=== PATIENT | female | born 1945 | race Caucasian/White ===

== ENCOUNTER 2017-11-10 17:52 | Emergency (ER) | payer OTHER, MEDICARE ==
[~2017-11-10] VITALS: Ht 160 cm; Wt 108.0 kg
[~2017-11-10 17:52] MED LIST: ALPR-411 PO; ATORVASTATIN PO; B-COCAP2 PO; BRIM0.2S OPB; CHOL100010 PO; CITA20TA9 PO; FOLI1TAB8 PO; GLIP10TA3 PO; LAMO25TA PO; LMGOPS OPB; LOSA100T65 PO; MAGN400T6 PO; METF-383 PO; MISCCAP80 PO; MULT-506 PO; OMEG10007 PO; SYN75 PO
[2017-11-10 18:01] VITALS: TEMP 37; Ht 160 cm; Wt 108.0 kg
[2017-11-10] MEDS ORDERED: ONDANSETRON 4MG OD TAB PO ONE (19:15)
[2017-11-10] MEDS ORDERED: CHOL1000 PO (19:21)
[2017-11-10] MEDS ORDERED: METF-384 PO (19:24)
[2017-11-10] MEDS ORDERED: MECL1TAB42 PO (19:28)
--- NOTE | 2017-11-10 19:53 | EMERGENCY ROOM VISIT NOTE ---
ED Visit Note First contact with patient: 18:15 The patient was seen and examined with Lisstet Ken PA-C. I agree with the history, physical and findings. Please see the note for disposition and details.
--- NOTE | 2017-11-10 19:59 | DIAGNOSTIC IMAGING REPORT ---
CT SCAN OF THE BRAIN WITHOUT IV CONTRAST CLINICAL HISTORY: Fall with head injury. COMPARISON STUDY: No priors TECHNIQUE: Unenhanced axial CT scan of the brain is performed from the vertex to the skull base. A dose lowering technique was utilized adhering to the principles of ALARA. The vertex was scanned twice due to motion artifact. CT DOSE: 844.62 mGy.cm FINDINGS: Brain parenchyma: There are age-related involutional changes noting mild to moderate patchy subcortical and periventricular microangiopathic change. There is no hemorrhage, mass effect, or evidence of acute territorial ischemia by CT criteria. Jarquin-white matter is preserved. No extra-axial fluid collection is seen. Ventricles, sulci, cisterns: Prominent secondary to involutional change. Intracranial vasculature: There is atherosclerotic calcification of the cavernous carotid and vertebral arteries. Calvarium: The skeletal structures are osteopenic. No depressed calvarial fracture is seen. Sinuses and mastoids: The visualized paranasal sinuses are clear. The mastoid air cells are well pneumatized. Orbits: The bony orbits are grossly intact. IMPRESSION: There is no hemorrhage, mass effect, or evidence of acute territorial ischemia by CT criteria. Electronically signed by: Pelon Plummer M.D. 11/10/2017 7:57 PM Dictated Date/Time: 11/10/2017 7:55 PM
--- NOTE | 2017-11-10 20:21 | DIAGNOSTIC IMAGING REPORT ---
CERVICAL SPINE 6 VIEWS CLINICAL HISTORY: Fall with neck pain. FINDINGS: AP, lateral, bilateral oblique, odontoid, and Ricks views of the cervical spine are obtained. No prior studies are available for comparison at the time of dictation. The skeletal structures are osteopenic. There is no radiographic evidence of fracture or subluxation involving the cervical spine. The odontoid process and lateral masses appear intact. The spinolaminar line is maintained. The atlantodental articulation is preserved. Vertebral body height and alignment are maintained throughout the cervical spine. There is straightening of the cervical lordosis. The spinous processes appear intact. No significant neural foraminal stenosis is seen on the oblique views. Mild facet arthropathy is noted on the frontal view. The disc spaces are maintained. The prevertebral soft tissues are normal as imaged. Atherosclerotic calcification is noted in the carotid bulbs. The partially visualized apical lung parenchyma appears clear. IMPRESSION: 1. There is no radiographic evidence of fracture or subluxation involving the cervical spine. 2. Osteopenia and mild spondylotic change as above. Electronically signed by: Pelon Plummer M.D. 11/10/2017 8:20 PM Dictated Date/Time: 11/10/2017 8:18 PM
--- NOTE | 2017-11-10 20:24 | EMERGENCY ROOM VISIT NOTE ---
ED Visit Note First contact with patient: 18:15 CHIEF COMPLAINT: Head injury this afternoon HISTORY OF PRESENT ILLNESS: Patient is a 71-year-old white female who presents to emergency department By by her daughter for evaluation after she sustained a head injury this afternoon. Injury occurred about 4 hours ago. She tripped backwards and fell, striking her upper back, then the back of her head on a cement floor covered with a very thin carpet. She did not lose consciousness. She states that she was able to stay for her appointment with her therapist, but they recommended that she be reevaluated. She has a mild headache, feels nauseous and dizzy, but denies any vomiting, or vision changes. Daughter states that she has been acting appropriately, does not appear to be confused or altered in any way. She does note some minor neck discomfort, no numbness, tickling or weakness into the upper extremities. She denies any other injuries related to the fall. She does take baby aspirin daily. REVIEW OF SYSTEMS: Review of systems as per HPI. All other systems reviewed were negative. 10 systems reviewed. PMH: Electronic medical records are reviewed and summarized as above/below. See Problem List. SOCIAL HISTORY: Patient lives at home. Retired. Nonsmoker. PHYSICAL EXAM: Vital Signs: Reviewed Nurse's notes. CONSTITUTIONAL: Patient is a pleasant, well-appearing 71-year-old white female who is awake and alert and in no acute distress. GCS: 15 HEENT: Normocephalic, atraumatic. Pupils equal, round, reactive to light and accommodation. EOMs intact without nystagmus. Sclera are anicteric. Tympanic membranes intact, with normal landmarks. External canals are clear. No hemotympanum or Robins sign. Oral and nasopharynx are clear. No CSF rhinorrhea. Mucous membranes are moist. NECK: Supple, nontender, no lymphadenopathy. She has some discomfort over the spinous processes of the lower cervical spine, but has full range of motion. HEART: Regular rate and rhythm, with normal S1 and S2, no murmur or gallop or rub is heard. LUNGS: Breath sounds equal and clear to auscultation without wheezes, rales, or rhonchi heard. SKIN: No lesions or rash, normal skin turgor. EXTREMITIES: No cyanosis, edema, joint tenderness or swelling. No deformity. NEUROLOGICAL: Alert and oriented x4. Cranial nerves 2 through 12, sensation and strength grossly intact. Gait is normal. Mini-Mental status exam is unremarkable. ED course: The patient was seen and assessed as above. Old records were reviewed. She was medicated with Zofran 4 mg ODT for nausea. Head CT and cervical spine x-rays were obtained, and negative for acute posttraumatic findings. Verbal and written head injury instructions were outlined with the patient and her daughter at length. She has some minor concussion-like symptoms , in addition to a head contusion. Differential diagnoses also entertained included acute intracranial bleed, skull fracture or C-spine injury. She was encouraged to rest and avoid any strenuous activity. Tylenol for discomfort. Return to the ED for worsening symptoms. Medication reconciliation: I attest that I have personally reviewed the patient' s current medication list. Blood pressure screening : Patient was found to have normal blood pressure on screening and does not require follow-up. CT SCAN OF THE BRAIN WITHOUT IV CONTRAST CLINICAL HISTORY: Fall with head injury. COMPARISON STUDY: No priors TECHNIQUE: Unenhanced axial CT scan of the brain is performed from the vertex to the skull base. A dose lowering technique was utilized adhering to the principles of ALARA. The vertex was scanned twice due to motion artifact. CT DOSE: 844.62 mGy.cm FINDINGS: Brain parenchyma: There are age-related involutional changes noting mild to moderate patchy subcortical and periventricular microangiopathic change. There is no hemorrhage, mass effect, or evidence of acute territorial ischemia by CT criteria. Jarquin-white matter is preserved. No extra-axial fluid collection is seen. Ventricles, sulci, cisterns: Prominent secondary to involutional change. Intracranial vasculature: There is atherosclerotic calcification of the cavernous carotid and vertebral arteries. Calvarium: The skeletal structures are osteopenic. No depressed calvarial fracture is seen. Sinuses and mastoids: The visualized paranasal sinuses are clear. The mastoid air cells are well pneumatized. Orbits: The bony orbits are grossly intact. IMPRESSION: There is no hemorrhage, mass effect, or evidence of acute territorial ischemia by CT criteria. CERVICAL SPINE 6 VIEWS CLINICAL HISTORY: Fall with neck pain. FINDINGS: AP, lateral, bilateral oblique, odontoid, and Ricks views of the cervical spine are obtained. No prior studies are available for comparison at the time of dictation. The skeletal structures are osteopenic. There is no radiographic evidence of fracture or subluxation involving the cervical spine. The odontoid process and lateral masses appear intact. The spinolaminar line is maintained. The atlantodental articulation is preserved. Vertebral body height and alignment are maintained throughout the cervical spine. There is straightening of the cervical lordosis. The spinous processes appear intact. No significant neural foraminal stenosis is seen on the oblique views. Mild facet arthropathy is noted on the frontal view. The disc spaces are maintained. The prevertebral soft tissues are normal as imaged. Atherosclerotic calcification is noted in the carotid bulbs. The partially visualized apical lung parenchyma appears clear. IMPRESSION: 1. There is no radiographic evidence of fracture or subluxation involving the cervical spine. 2. Osteopenia and mild spondylotic change as above. Problem List Medical Problems: (1) Anxiety Status: Chronic (2) CLL (chronic lymphocytic leukemia) Status: Chronic (3) Diabetes Status: Chronic (4) Glaucoma Status: Chronic (5) Hyperglycemia Status: Resolved (6) Hypertension Status: Chronic (7) Hypothyroidism Status: Chronic (8) Sleep apnea Status: Chronic (9) Urinary tract infection Status: Resolved Current/Historical Medications Scheduled Bimatoprost (Lumigan), 1 DROP OPB HS Brimonidine Tartrate-Timolol M (Combigan), 1 DROP OPB QAM Cholecalciferol (Vitamin D3), 1,000 UNIT PO DAILY Citalopram Hydrobromide (Celexa), 40 MG PO DAILY Folic Acid (Folvite), 1 MG PO DAILY Glipizide (Glucotrol), 10 MG PO BID Lamotrigine (Lamictal), 25 MG PO HS Levothyroxine Sodium (Synthroid), 75 MCG PO DAILY Losartan Potassium (Cozaar), 50 MG PO DAILY Magnesium Oxide (Mag-Ox), 400 MG PO DAILY Meclizine Hcl (Meclizine Hcl), 25 MG PO DAILY Metformin Hcl (Glucophage), 1,000 MG PO BID Multivitamin (Multivitamin), 1 TAB PO DAILY Probiotic Product (Probiotic), 1 CAP PO DAILY [Atorvastatin], 1 TAB PO QAM Scheduled PRN Alprazolam (Xanax), 0.5 MG PO Q6H PRN for Anxiety Allergies Coded Allergies: No Known Allergies (Unverified , 1/24/18) Vital Signs Date Time Temp Pulse Resp B/P (MAP) Pulse Ox O2 Delivery O2 Flow Rate FiO2 11/10/17 20:44 82 18 131/71 96 11/10/17 19:13 80 16 122/65 95 Room Air 11/10/17 18:09 18 96 11/10/17 18:01 37.0 88 18 145/71 96 Room Air Medications Administered Medications (Trade) Dose Ordered Sig/Sanchez Route Start Time Stop Time Status Last Admin Dose Admin Ondansetron HCl (Zofran Odt) 4 mg ONE ONCE PO 11/10/17 19:15 11/10/17 19:16 DC 11/10/17 19:11 4 MG Departure Information Impression Primary Impression: Closed head injury Additional Impressions: Neck pain Fall Referrals Yari Starr M.D. (PCP) Patient Instructions Replaced By [facility] Additional Instructions CONCUSSION DISCHARGE INSTRUCTIONS: What is a concussion? A concussion is a disturbance in the function of the brain caused by a direct or indirect force to the head. It results in a variety of symptoms like: headache, balance problems, nausea, vomiting, vision problems, hearing problems/ringing, drowsiness, irritability, and/or difficulty concentrating or remembering. A concussion may, or may not involve memory problems or loss of consciousness. Concussion instructions: Stop and stay away from ALL physical activity until you are symptom free from: Headaches Balance problems Feeling "dinged" Poor concentration Drowsy Fatigued Rest and avoid strenuous activities for the next few days. Get 8-10 hours of sleep per night. Limit activities that involve significant concentration and attention during this time to speed your recovery. This includes studying, attending school, playing video games, and heavy reading. Your brain needs to rest. Eat right and eat often. Now is the time to feed your brain. Well balanced diets that avoid high sugar foods, sodas, caffeine, etc. are better for your brain. NO ALCOHOL OR DRUGS! Avoid stimulants like caffeine, red bull, mountain dew, "energy" drinks, etc. Tylenol(acetaminophen) may be used for headaches. Use 1000mg every six hours as needed. Avoid using more than 3000mg in a 24 hour period. Avoid anti-inflammatories such as aspirin, ibuprofen, Alleve, naprosyn, Motrin, or Advil as these can interfere with blood clotting and lead to bleeding within the brain after a traumatic injury. FOLLOW UP INSTRUCTIONS: You should have a follow up with your family doctor in 3-5 days regarding your injury. POST CONCUSSIVE SYNDROME: Occasionally patients can experience a postconcussive syndrome which includes prolonged headaches and memory difficulties. This may occur over the next several days, weeks or rarely, even months. It is important to have a primary care physician follow-up in order to help if the situation develops. Problems could arise over the next 24 to 48 hours. You should not be left alone and MUST go to the hospital immediately if you: -Have a headache that suddenly gets worse. -Are very drowsy or cannot be woken up from sleep. -Can't recognize people or places. -Have repeated vomiting. -Behave unusually, seemed confused, or start acting irritable. -Have a seizure (arms and legs start jerking uncontrollably). -Have weak or numb arms or legs. -Are unsteady on your feet -Experience slurred speech or difficulty speaking. Problem Qualifiers
[2017-11-10 20:44] VITALS: BP 131/71; PULSE 82; O2SAT 96
== END 2017-11-10 20:40 | disposition home or self-care (01) ==
LOC: C.EDB 17:53 → C.EDD 20:40
DX: S09.8XXA Other specified injuries of head, initial encounter (principal); M85.88 Other specified disorders of bone density and structure, other site; M54.2 Cervicalgia; W18.39XA Other fall on same level, initial encounter; Y92.89 Other specified places as the place of occurrence of the external cause; Z79.899 Other long term (current) drug therapy; E03.9 Hypothyroidism, unspecified; C91.10 Chronic lymphocytic leukemia of B-cell type not having achieved remission; E11.9 Type 2 diabetes mellitus without complications; G47.30 Sleep apnea, unspecified; F41.9 Anxiety disorder, unspecified; I10 Essential (primary) hypertension; H40.9 Unspecified glaucoma

== ENCOUNTER 2018-02-09 15:08 | Emergency (ER) | payer OTHER, MEDICARE ==
[~2018-02-09] VITALS: Ht 157.5 cm; Wt 110.6 kg
[~2018-02-09 15:08] MED LIST changes: -B-COCAP2 PO; +CHOL1000 PO; -CHOL100010 PO; +MECL1TAB42 PO; -METF-383 PO; +METF-384 PO; -OMEG10007 PO
[2018-02-09 15:10] VITALS: TEMP 37; Ht 157.5 cm; Wt 110.6 kg
--- NOTE | 2018-02-09 17:17 | DIAGNOSTIC IMAGING REPORT ---
CT HEAD WITHOUT CONTRAST (CT) CLINICAL HISTORY: Head pain status post trauma COMPARISON STUDY: 11/10/2017 TECHNIQUE: Axial CT of the brain is performed from the vertex to the skull base. IV contrast was not administered for this examination. A dose lowering technique was utilized adhering to the principles of ALARA. CT DOSE: 638.56 mGycm FINDINGS: No intra or extra-axial mass lesions are visualized. There is no CT evidence of acute cortical infarction. There is no evidence of midline shift. There is no acute hemorrhage. No calvarial fractures are visualized. There are patchy white matter hypodensities likely on a small vessel basis. 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 There is no evidence of acute sinusitis IMPRESSION: No acute intracranial findings Electronically signed by: Ivan Potter M.D. 02/09/2018 5:16 PM Dictated Date/Time: 02/09/2018 5:15 PM
[2018-02-09] MEDS ORDERED: COEN1CAP28 PO (17:18)
--- NOTE | 2018-02-09 17:20 | DIAGNOSTIC IMAGING REPORT ---
CT OF THE CERVICAL SPINE WITHOUT CONTRAST CLINICAL HISTORY: Fall, struck head, head pain COMPARISON STUDY: Cervical spine radiographs November 10, 2017. TECHNIQUE: Helical axial images of the cervical spine were obtained without IV contrast. Sagittal and coronal reconstructions were viewed. A dose lowering technique was utilized adhering to the principles of ALARA. FINDINGS: Alignment of the cervical spine is anatomic. Vertebral body heights are maintained. There is no acute fracture. The craniocervical junction is intact. There is mild multilevel disc space narrowing, osteophytosis and facet arthrosis. There is no prevertebral edema. IMPRESSION: No acute cervical spine fracture or subluxation. Electronically signed by: Morgan Miles M.D. 02/09/2018 5:19 PM Dictated Date/Time: 02/09/2018 5:16 PM
--- NOTE | 2018-02-09 17:31 | EMERGENCY ROOM VISIT NOTE ---
History First contact with patient: 15:23 Chief Complaint: FALL Stated Complaint: FALL, HEAD PAIN History of Present Illness The patient is a 72 year old female who presents to the Emergency Room via ambulance with complaints of "fall, head pain". The patient states that earlier today she was ambulating from her car in a parking meter when she tripped on the curb and fell backwards landing on her buttocks and then striking her head. She denies loss of consciousness but was then seen by her family doctor who sent her here via ambulance overconcerned that she was lethargic. She denies taking a blood thinners. She notes that she is feeling well. No complaints. She denies any weakness, speech troubles, chest pain, shortness of breath. Review of Systems A complete 10-point Review of Systems was discussed with the patient, with pertinent positives and negatives listed in the History of Present Illness. All remaining Review of Systems questions can be considered negative unless otherwise specified. Past Medical/Surgical History Medical Problems: (1) Anxiety (2) CLL (chronic lymphocytic leukemia) (3) Diabetes (4) Glaucoma (5) Hyperglycemia (6) Hypertension (7) Hypothyroidism (8) Sleep apnea (9) Urinary tract infection Social History Smoking Status: Former Smoker Housing Status: lives with family Current/Historical Medications Scheduled Bimatoprost (Lumigan), 1 DROP OPB HS Brimonidine Tartrate-Timolol M (Combigan), 1 DROP OPB QAM Cholecalciferol (Vitamin D3), 1,000 UNIT PO DAILY Citalopram Hydrobromide (Celexa), 40 MG PO DAILY Coenzyme Q10 (Ubidecarenone) (Co Q10), 1 CAP PO DAILY Folic Acid (Folvite), 1 MG PO DAILY Glipizide (Glucotrol), 10 MG PO BID Lamotrigine (Lamictal), 25 MG PO HS Levothyroxine Sodium (Synthroid), 75 MCG PO DAILY Losartan Potassium (Cozaar), 50 MG PO DAILY Magnesium Oxide (Mag-Ox), 400 MG PO DAILY Meclizine Hcl (Meclizine Hcl), 25 MG PO DAILY Metformin Hcl (Glucophage), 1,000 MG PO BID Multivitamin (Multivitamin), 1 TAB PO DAILY Probiotic Product (Probiotic), 1 CAP PO DAILY Scheduled PRN Alprazolam (Xanax), 0.5 MG PO Q6H PRN for Anxiety Physical Exam Vital Signs Date Time Temp Pulse Resp B/P (MAP) Pulse Ox O2 Delivery O2 Flow Rate FiO2 02/09/18 19:35 84 16 117/56 96 02/09/18 19:12 84 18 117/56 94 Room Air 02/09/18 18:52 89 18 100/46 95 Room Air 02/09/18 17:14 84 18 104/61 95 Room Air 02/09/18 15:10 37.0 92 18 118/61 95 Room Air Physical Exam VITAL SIGNS - Vital signs and nursing notes were reviewed. Stable. Hypotensive but I believe this to be patient baseline. GENERAL -72-year-old female appearing her stated age. Communicates well with provider and answers questions appropriately. SKIN - Gross examination of the entire body surface demonstrates a small 4 cm skin tear to the dorsum of the right hand. HEAD - Normocephalic, Atraumatic. No Robins's Sign or Raccoon's Eyes. No depressed skull fractures palpable. EYES - PERRL with EOMI bilaterally. Without subconjunctival hemorrhage. Palpebral conjunctiva pink and moist with no injection. EARS - No deformities of external structures noted on gross examination bilaterally. No hemotympanum present. No tympanic perforation noted. Handle of malleus, umbo, cone of light, pars tensa/flaccid all easily visualized. NOSE - Midline and without cyanosis. No epistaxis or clear watery discharge noted. MOUTH/OROPHARYNX - Without perioral cyanosis. Tongue midline with equal elevation of palate bilaterally. NECK - no tenderness to palpation over the cervical spinous processes. no cervical paraspinal muscle tenderness noted. LUNGS - Chest wall symmetric without accessory muscle use, intercostals retractions, or central cyanosis. No flail chest or depressed fractures noted. No paradoxical chest wall movements noted. No tenderness to palpation across the anterior and posterior chest knott. No tenderness with deep inspiration noted against the examiner's applied pressure to the lateral chest knott. Normal vesicular breath sounds CTA B/L. No wheezes, rales, or rhonchi appreciated. CARDIAC - RRR with S1/S2. No murmur, rubs, or gallops appreciated. ABDOMEN - Abdominal contour normal and without pulsations or visible masses. No tenderness. EXTREMITIES - No gross deformities noted of the extremities. No tenderness to palpation of the extremity. +5/5 strength noted in UE/LE bilaterally. NEUROLOGIC - Cranial nerves II through XII grossly intact. PSYCH - A&O, and cooperates fully with examiner. Pt is very pleasant and interacts well with examiner. Medical Decision & Procedures ER Provider Diagnostic Interpretation: CT HEAD WITHOUT CONTRAST (CT) CLINICAL HISTORY: Head pain status post trauma COMPARISON STUDY: 11/10/2017 TECHNIQUE: Axial CT of the brain is performed from the vertex to the skull base. IV contrast was not administered for this examination. A dose lowering technique was utilized adhering to the principles of ALARA. CT DOSE: 638.56 mGycm FINDINGS: No intra or extra-axial mass lesions are visualized. There is no CT evidence of acute cortical infarction. There is no evidence of midline shift. There is no acute hemorrhage. No calvarial fractures are visualized. There are patchy white matter hypodensities likely on a small vessel basis. 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 There is no evidence of acute sinusitis IMPRESSION: No acute intracranial findings Electronically signed by: Ivan Potter M.D. 02/09/2018 5:16 PM Dictated Date/Time: 02/09/2018 5:15 PM Laboratory Results 02/09/18 17:50 Red Blood Count 4.93, Mean Corpuscular Volume 63.7, Mean Corpuscular Hemoglobin 19.3, Mean Corpuscular Hemoglobin Concent 30.3, Mean Platelet Volume 9.4, Neutrophils (%) (Auto) 37.6, Lymphocytes (%) (Auto) 53.3, Monocytes (%) (Auto) 6.8, Eosinophils (%) (Auto) 1.6, Basophils (%) (Auto) 0.2, Neutrophils # (Auto) 5.79, Lymphocytes # (Auto) 8.18, Monocytes # (Auto) 1.04, Eosinophils # (Auto) 0.24, Basophils # (Auto) 0.03 02/09/18 17:50 Test 02/09/18 17:50 White Blood Count 15.35 K/uL (4.8-10.8) Red Blood Count 4.93 M/uL (4.2-5.4) Hemoglobin 9.5 g/dL (12.0-16.0) Hematocrit 31.4 % (37-47) Mean Corpuscular Volume 63.7 fL (80-100) Mean Corpuscular Hemoglobin 19.3 pg (25-34) Mean Corpuscular Hemoglobin Concent 30.3 g/dl (32-36) Platelet Count 331 K/uL (130-400) Mean Platelet Volume 9.4 fL (7.4-10.4) Neutrophils (%) (Auto) 37.6 % Lymphocytes (%) (Auto) 53.3 % Monocytes (%) (Auto) 6.8 % Eosinophils (%) (Auto) 1.6 % Basophils (%) (Auto) 0.2 % Neutrophils # (Auto) 5.79 K/uL (1.4-6.5) Lymphocytes # (Auto) 8.18 K/uL (1.2-3.4) Monocytes # (Auto) 1.04 K/uL (0.11-0.59) Eosinophils # (Auto) 0.24 K/uL (0-0.5) Basophils # (Auto) 0.03 K/uL (0-0.2) RDW Standard Deviation 34.7 fL (36.4-46.3) RDW Coefficient of Variation 15.1 % (11.5-14.5) Immature Granulocyte % (Auto) 0.5 % Immature Granulocyte # (Auto) 0.07 K/uL (0.00-0.02) Nucleated RBC Absolute Count (auto) 0.03 K/uL (0-0) Nucleated Red Blood Cells % 0.2 % Basophilic Stippling 1+ Microcytosis PRESENT Ovalocytes 1+ Prothrombin Time 10.3 SECONDS (9.0-12.0) Prothromb Time International Ratio 1.0 (0.9-1.1) Activated Partial Thromboplast Time 24.2 SECONDS (21.0-31.0) Partial Thromboplastin Ratio 0.9 Anion Gap 3.0 mmol/L (3-11) Est Creatinine Clear Calc Drug Dose 75.8 ml/min Estimated GFR () 85.3 Estimated GFR (Non- 73.6 BUN/Creatinine Ratio 20.6 (10-20) Calcium Level 9.1 mg/dl (8.5-10.1) Magnesium Level 1.9 mg/dl (1.8-2.4) Total Bilirubin 0.4 mg/dl (0.2-1) Aspartate Amino Transf (AST/SGOT) 11 U/L (15-37) Alanine Aminotransferase (ALT/SGPT) 19 U/L (12-78) Alkaline Phosphatase 91 U/L (45-117) Total Protein 6.7 gm/dl (6.4-8.2) Albumin 3.5 gm/dl (3.4-5.0) Globulin 3.2 gm/dl (2.5-4.0) Albumin/Globulin Ratio 1.1 (0.9-2) Medical Decision Patient was seen and evaluated as above in room C 10. Review was performed of nursing notes and vital signs. After obtaining a thorough history and physical examination the above work up was performed. She presents to us today status post fall. There is a small skin tear to the right hand. This measures 4 cm in length. Consent was obtained. This was cleansed with a solution of normal saline as well as Betadine. This was then Dermabond and after obtaining consent. CT scan was then obtained of her head and C-spine secondary to mechanism of injury. Results as above. There is an old lacunar infarct which does not appear to be present in October. I discussed this with the patient. I then subsequently discussed this with the attending physician and a workup commenced. There is no concerning leukocytosis or anemia given that her underlying CLL is a known diagnosis. I also discussed this finding with Dr. Moran, of neurology. She is to follow-up in the outpatient setting with her family doctor for further workup as we do not suspect her symptoms today/fall to be from this finding. Rather this is likely incidental and old. The patient was educated upon management, had questions answered prior to discharge , and was discharged home in good condition. Of additional note her blood pressure was found to be on the lower side however she appears to be asymptomatic with this. She is to follow with her family doctor for potential readjustment of her blood pressure meds. In the evaluation and treatment of this patient, the following differential diagnoses were considered: Concussion, Contrecoup Injury, Brain Tumor, Depression, Encephalitis, Hypothyroidism, Meningitis, CVA, TIA, Migraine, Cluster Headache, Intracranial Abnormality, Intracranial Hemorrhage, Subdural Hematoma, Subarachnoid Hemorrhage, Hydrocephalus. Impression Primary Impression: Fall Additional Impressions: Contusion of multiple sites Lacunar infarction Departure Information Dispostion Home / Self-Care Condition GOOD Referrals Yari Starr M.D. (PCP) Patient Instructions My [facility] Additional Instructions You are seen in the emergency department for a fall. We did find an old stroke in your brain which I would recommend following up with your family doctor for. We did discuss this with Dr. Moran of neurology. For the glue on the hand please just let this dissolve over time. Please call your family doctor tomorrow to schedule follow-up. Please return with any new/concerning symptoms and continue your medication. Problem Qualifiers
[2018-02-09 18:09] LABS: HEMATOCRIT 31.4 % (37-47); HEMOGLOBIN 9.5 g/dL (12.0-16.0); MEAN CELL VOLUME 63.7 fL (80-100); MEAN CORPUSCULAR HEMOGLOBIN 19.3 pg (25-34); MEAN CORPUSCULAR HGB CONC 30.3 g/dl (32-36); MEAN PLATELET VOLUME 9.4 fL (7.4-10.4); NUCLEATED RED BLOOD CELL ABS 0.03 K/uL (0-0); PLATELET COUNT 331 K/uL (130-400); RED CELL DISTRIBUTION WIDTH CV 15.1 % (11.5-14.5); RED CELL DISTRIBUTION WIDTH SD 34.7 fL (36.4-46.3); WHITE BLOOD COUNT 15.35 K/uL (4.8-10.8)
[2018-02-09 18:24] LABS: PTT PATIENT 24.2 SECONDS (21.0-31.0)
[2018-02-09 18:26] LABS: ALBUMIN 3.5 gm/dl (3.4-5.0); CALCIUM 9.1 mg/dl (8.5-10.1); CREATININE 0.81 mg/dl (0.60-1.20); POTASSIUM 4.3 mmol/L (3.5-5.1)
[2018-02-09 18:29] LABS: TOTAL PROTEIN 6.7 gm/dl (6.4-8.2)
--- NOTE | 2018-02-09 19:26 | EMERGENCY ROOM VISIT NOTE ---
ED Visit Note First contact with patient: 15:23 Patient seen and evaluated bedside after discussion with physician assistant spa director. Patient aware of all results and agreeable with plan for follow-up with family doctor. Discussed careful change in position given isolated episode of low blood pressure here. Patient with no other episodes of hypotension and no other orthostatic symptoms. Patient does take medication for hypertension typically. Did not feel the incidental finding of lacunar infarct on neuroimaging was contributory to the fall today. I do not suspect other occult traumatic injury.
[2018-02-09 19:35] VITALS: BP 117/56; PULSE 84; O2SAT 96
[2018-02-09 20:12] LABS: BASO % 0.2 %; BASO ABS # 0.03 K/uL (0-0.2); EOS % 1.6 %; EOS ABS # 0.24 K/uL (0-0.5); IG# 0.07 K/uL (0.00-0.02); LYMPH % 53.3 %; LYMPH ABS # 8.18 K/uL (1.2-3.4); MONO % 6.8 %; MONO ABS # 1.04 K/uL (0.11-0.59); NEUT % 37.6 %; NEUT ABS # 5.79 K/uL (1.4-6.5)
== END 2018-02-09 19:28 | disposition home or self-care (01) ==
LOC: EDBD 15:08 → C.EDC 15:09
DX: S61.411A Laceration without foreign body of right hand, initial encounter (principal); W01.198A Fall on same level from slipping, tripping and stumbling with subsequent striking against other object, initial encounter; I63.9 Cerebral infarction, unspecified; E11.65 Type 2 diabetes mellitus with hyperglycemia; I10 Essential (primary) hypertension; E03.9 Hypothyroidism, unspecified; Z79.84 Long term (current) use of oral hypoglycemic drugs; Z87.891 Personal history of nicotine dependence; Z79.899 Other long term (current) drug therapy

== ENCOUNTER 2025-08-22 11:42 | Inpatient (IN) ==
[2025-08-22 12:30] LABS: Hematocrit (blood only) 26.7 % (37.0-47.0); Hemoglobin 8.1 g/dl (12.0-16.0); Mean Corpuscular Hemoglobin 20.6 pg (25.0-34.0); Mean Corpuscular Volume 67.9 fL (80.0-100.0); RDW Standard Deviation 36.5 fL (36.4-46.3); Red Blood Count 3.93 M/uL (4.20-5.40); White Blood Count 13.94 K/ul (4.8-10.8)
--- NOTE | 2025-08-22 12:43 | XRay Report ---
SINGLE VIEW CHEST CLINICAL HISTORY: Sepsis FINDINGS: An AP, portable, upright chest radiograph is compared to study dated 05/04/2022 and correlat ed with chest CT dated 01/21/2022. The heart is mildly enlarged noting atherosclerotic calcification of the thoracic aorta. There is pulmonary vascular congestion. Bilateral airspace opacities likely repr esenting pulmonary edema. There are asymmetric airspace opacities at the right lung base. No large pl eural effusion or pneumothorax is seen. The skeletal structures are osteopenic. There are chronic/hea led left-sided rib fractures. Degenerative change is seen in the shoulders and spine. IMPRESSION: 1. Mild cardiomegaly with evidence of congestive failure. 2. Bilateral airspace opacities likely representing pulmonary edema. Correlate clinically for evidenc e of a superimposed infectious/inflammatory pneumonitis. Radiographic follow-up to resolution is abner mmended. 3. Asymmetric airspace opacities at the right lung base could also represent pneumonia. ACT 112: Negative or not required by law. Electronically signed by: Pelon Plummer M.D. 08/22/2025 12:42 PM
[2025-08-22 12:45] LABS: Alanine Aminotransferase 10.0 U/L (7-52); Albumin Globulin Ratio 2.0 (0.9-2); Albumin Level 4.1 gm/dl (3.4-5.0); Alkaline Phosphatase 61.0 U/L (34-104); Anion Gap 9.0 (3-11); Bilirubin,Total 1.0 mg/dl (0.2-1.0); Blood Urea Nitrogen 24.0 mg/dl (6-23); Calcium 9.1 mg/dl (8.6-10.3); Carbon Dioxide 22.0 mmol/L (21-32); Chloride 107.0 mmol/L (98-107); Creatinine Clr Calc Pharmacy 56.3 ml/min; Globulin 2.0 gm/dl (2.5-4.0); Glucose 223.0 mg/dl (70-99(Fasting)); Magnesium 1.5 mg/dl (1.7-2.4); Potassium 4.0 mmol/L (3.5-5.1); Sodium 138.0 mmol/L (136-145); Total Protein 6.1 gm/dl (6.0-8.3)
[2025-08-22 12:54] LABS: Acanthocytes 1+; Basophilic Stippling 1+; Immature Granulocytes # (auto) 0.09 K/uL (0.01-0.20); Immature Granulocytes % (auto) 0.6 %; Microcytosis Present; Platelet Count 261 K/uL (130-400); Polychromasia 1+; Schistocytes 1+; Tear Drop Cells 2+
[2025-08-22 12:56] LABS: INR 1.0 (0.9-1.1); Partial Thromboplastin Time 22 Seconds (21-31); Prothrombin Time 10.9 Seconds (9.0-12.0)
[2025-08-22 13:26] LABS: Chlamydia pneumoniae PCR Not Detected (NotDetected); Coronavirus 229E PCR Not Detected (NotDetected); Coronavirus CoV-2 (COVID19)PCR Not Detected (NotDetected); Coronavirus HKU1 PCR Not Detected (NotDetected); Coronavirus NL63 PCR Not Detected (NotDetected); Coronavirus OC43PCR Not Detected (NotDetected); Human Metapneumovirus PCR Not Detected (NotDetected); Parainfluenza Virus 1 PCR Not Detected (NotDetected); Parainfluenza Virus 2 PCR Not Detected (NotDetected); Parainfluenza Virus 3 PCR Not Detected (NotDetected); Parainfluenza Virus 4 PCR Not Detected (NotDetected); Respiratory Syncytial VirusPCR Not Detected (NotDetected); Rhinovirus/Enterovirus PCR Not Detected (NotDetected)
[2025-08-22] MEDS: MAGNESIUM SULFATE / D5W 1 GM/100 ML BAG IV STA (13:28)
[2025-08-22] MEDS: SODIUM CHLORIDE 0.9% 500 ML IV ONE (13:28)
--- NOTE | 2025-08-22 13:31 | Emergency Department Note ---
Impression & Plan Pneumonia, CHF (congestive heart failure), Pulmonary edema, Hypomagnesemia, Elevated lactic acid level, Elevated brain natriuretic peptide (BNP) level, Elevated troponin ED Provider Note HISTORY OF PRESENT ILLNESS: Patient is a 79-year-old female presenting with shortness of breath and fatigue. Patient reports that she has been feeling generally unwell for the last week or so. She states that last night she started feeling very short of breath and felt like she could not catch her breath. Today her symptoms persisted and she decided to come in to be evaluated. She denies any chest pain. Reports she has had a cough with some white mucus production. Denies any fevers or chills. She denies any history of cardiac stents but is on Brilinta for history of a carotid stent. She had a history of carotid stenosis. She denies any DVT or PE history. She states that this morning anytime she attempted to walk she had to stop to try to catch her breath. She reports that over the last week or so she has had some intermittent swelling of her bilateral lower extremities. Denies any abdominal pain, nausea or vomiting. Denies any dysuria or hematuria. ROS: as above PHYSICAL EXAM: Constitutional: Patient appears in no acute distress. HENT: Head: Normocephalic and atraumatic. Eyes: EOMI, PERRL Mouth/Throat: Mucous membranes moist. Neck: Trachea midline. Neck supple. Cardiovascular: RRR, No murmurs, rubs or gallops. Intact distal pulses. Pulmonary/Chest: No respiratory distress. Breath sounds clear and equal bilaterally. Coarse breath sounds bilaterally. Abdominal: Abdomen soft, no tenderness, rebound or guarding. Musculoskeletal: No tenderness or deformity noted. Trace edema of the bilateral lower extremities. Skin: Warm and dry. No rash, erythema, pallor or cyanosis Psychiatric: Appropriate mood and affect for situation. Neurological: Alert and keenly responsive. CN II-XII grossly intact, moving all extremities equally and fully. MDM: - Vitals signs showed hypotension and tachycardia. - History obtained via patient. History as above. - Chronic conditions affecting care: PAD; HTN; HLD; CAD; hx of carotid stenosis (s/p stent) - Differential diagnoses include, but are not limited to: Congestive heart failure; acute coronary syndrome; COPD/asthma exacerbation; pulmonary edema; pulmonary embolism; pneumonia; pneumothorax; viral syndrome - Order placed for continuous cardiac monitoring. At this time, monitor showed rate of 105 bpm with normal sinus rhythm, per my interpretation. - External medical records reviewed. normal WBC; elevated INR (1.3) discharge summary dated 03/22/2025 was reviewed. Patient was admitted at that time for right internal carotid artery stenosis and had a stent placed. She was started on Brilinta. - EKG image interpreted by myself showed normal sinus rhythm. Rate tachycardic at 114 bpm. QT 354. No acute ischemic changes. - Laboratory workup interpreted by myself showed leukocytosis (WBC 13.94); chronic anemia (Hgb 8.1); normal PT/INR; stable electrolytes other than hypomagnesemia (Mg 1.5); elevated lactate (2.8); normal procalcitonin; hyperglycemia (glucose 223); elevated troponin (133.6); elevated BNP (1462) - Blood cultures obtained - Viral respiratory panel negative - CXR image reviewed interpreted myself shows pulmonary vascular congestion, per my interpretation. Radiology notes asymmetric airspace opacities at the right lung base which could be pneumonia and bilateral airspace opacities concerning for pulmonary edema. - Patient given 500 cc NS in ER. - Given 1g IV magnesium for electrolyte replacement - Given 2g IV rocephin and 500 mg PO azithromycin for pneumonia - Discussion was had with correctional case manager about patient's case and need for admission - Hospitalist consulted for admission - [facility] ASSESSMENT AND PLAN: Diagnosis: pneumonia; pulmonary edema; CHF; hypomagnesemia; elevated lactic acid; elevated BNP; elevated troponin Plan: admit Past Med/Surg History Problem List (Updated 08/22/25 @ 14:01 by Yesenia Olivarez MD) Elevated troponin (Acute) Elevated brain natriuretic peptide (BNP) level (Acute) Elevated lactic acid level (Acute) Hypomagnesemia (Acute) Pulmonary edema (Acute) CHF (congestive heart failure) (Acute) Pneumonia (Acute) Volume overload DM II (diabetes mellitus, type II), controlled Carotid stenosis Abrasion of arm, left (Acute) Hx of colonic polyps Medical History Anxiety Beta thalassemia Stable- follows with heme/onc per PCP records (baseline Hgb 9-9.5; on no treatment per records) Carotid artery disease >70% stenosis to right ICA No significant stenosis noted to left ICD per 11/2024 carotid duplex Chronic lymphocytic leukemia Follows with [facility] heme/onc per PCP records Diabetes Diabetic retinopathy Fibromyalgia Glaucoma Hx of fall (12/13/24) [facility] [place]- stitches in forehead- had blood transfusion fall vs syncope per records Hyperlipidemia Hypertension 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 per records PAD (peripheral artery disease) 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 per vascular records PTSD (post-traumatic stress disorder) Sleep apnea not using cpap- states she needs to be retested Vertigo Per vascular records x years Surgical History History of esophagogastroduodenoscopy (EGD) History of eye surgery History of numerous eye injections, laser surgery, trabeculoplasty per records Hx of colonoscopy with polypectomy Family History Other Family history non-contributory Social History Smoking Status: Former smoker Tobacco Type: Cigarettes Second Hand Exposure: No; Do You Dip or Chew Tobacco: No; Hx Alcohol Use: No Hx Substance Use: No Preferred Language: Malay Communication Ability: Effective Energy Professional Required: No Beliefs That Will Affect Care: None Current Living Situation: Alone Feels Safe at Home: Yes Assistive Devices: Cane, CPAP and Walker Allergies Allergies Allergy/AdvReac Type Severity Reaction Status Date / Time No Known Allergies Allergy Verified 03/21/25 07:13 Home Meds Home Medications Medication Instructions Recorded Confirmed Black Elderberry 575 mg PO DAILY 01/21/22 03/21/25 Lactobacillus acidophilus 250 1,000 mmu cells PO DAILY 01/21/22 03/21/25 million cell capsule (Probiotic Acidophilus) albuterol sulfate 90 mcg/actuation 2 puff inhalation QID PRN asthma 01/21/22 03/21/25 aerosol inhaler alprazolam 0.25 mg tablet 0.25 mg PO DAILY PRN Anxiety 01/21/22 03/21/25 ascorbic acid (vitamin C) 500 mg 500 mg PO DAILY 01/21/22 03/21/25 tablet (Vitamin C) aspirin 81 mg chewable tablet 81 mg PO QAM 01/21/22 03/21/25 atorvastatin 20 mg tablet 20 mg PO QAM 01/21/22 03/21/25 carboxymethylcellulose sodium 1 % 21 drp OPB QID PRN alternate with 01/21/22 03/21/25 eye liquid gel drops oasis tears cholecalciferol (vitamin D3) 25 25 mcg PO DAILY 01/21/22 03/21/25 mcg (1,000 unit) tablet (Vitamin D3) citalopram 40 mg tablet 40 mg PO DAILY 01/21/22 03/21/25 coQ10 (ubiquinol) 100 mg capsule 100 mg PO QPM 01/21/22 03/21/25 cyanocobalamin (vitamin B-12) 250 250 mcg PO QAM 01/21/22 03/21/25 mcg tablet (Vitamin B-12) dulaglutide 1.5 mg/0.5 mL 1.5 mg subcut WK 01/21/22 03/21/25 subcutaneous pen injector (Trulicity) folic acid 1 mg tablet 1 mg PO DAILY 01/21/22 03/21/25 levothyroxine 88 mcg tablet 88 mcg PO DAILYBB 01/21/22 03/21/25 lutein 20 mg tablet 20 mg PO QAM 01/21/22 03/21/25 magnesium 250 mg tablet 250 mg PO QAM 01/21/22 03/21/25 meclizine 25 mg tablet 25 mg PO DAILY PRN Dizziness 01/21/22 03/21/25 metformin 1,000 mg tablet 1,000 mg PO BID 01/21/22 03/21/25 diclofenac sodium 1 % topical gel 2 g topical QID PRN Pain 03/20/25 03/21/25 meloxicam 7.5 mg tablet 7.5 mg PO DAILY 03/20/25 03/21/25 tafluprost (PF) 0.0015 % eye drops 1 drp ophthalmic (eye) DAILY 03/20/25 03/21/25 in a dropperette ticagrelor 90 mg tablet (Brilinta) 90 mg PO BID 03/20/25 03/21/25 Previous Rx's Medication Instructions Recorded midodrine 10 mg tablet 5 mg (1/2 x 10 mg) PO BID #7 tabs 03/22/25 oxycodone-acetaminophen 5 mg-325 1 tab PO Q6H PRN pain #8 tabs 03/22/25 mg tablet (Percocet) Results & Data (ED) Vital Signs Vital Signs - 24 hr 08/22/25 11:44 08/22/25 11:49 08/22/25 12:06 Temperature 37.3 C Temperature Source Temporal Artery Scan Pulse Rate 115 H 109 H Pulse Rate [Apical] Respiratory Rate 18 Respiratory Effort / Characteristics Respiratory Depth Respiratory Pattern Blood Pressure 99/62 L Blood Pressure [Right Arm] Blood Pressure Mean 74 Blood Pressure Mean [Right Arm] Pulse Oximetry 98 Oxygen Delivery Method Room Air Room Air Sepsis New/Unexplained Change in Mental Status No Sepsis Action Taken by Nursing No Action Required 08/22/25 12:06 08/22/25 12:24 08/22/25 12:27 Temperature Temperature Source Pulse Rate 109 H Pulse Rate [Apical] 108 H Respiratory Rate 20 18 Respiratory Effort / Characteristics Non-Labored Spontaneous Respiratory Depth Normal Respiratory Pattern Blood Pressure 99/57 L Blood Pressure [Right Arm] 99/57 L Blood Pressure Mean 71 Blood Pressure Mean [Right Arm] 71 Pulse Oximetry 95 Oxygen Delivery Method Room Air Room Air Sepsis New/Unexplained Change in Mental Status Sepsis Action Taken by Nursing 08/22/25 12:30 08/22/25 13:08 Temperature Temperature Source Pulse Rate 108 H Pulse Rate [Apical] Respiratory Rate 17 Respiratory Effort / Characteristics Non-Labored Respiratory Depth Normal Respiratory Pattern Regular Blood Pressure 111/60 Blood Pressure [Right Arm] Blood Pressure Mean 77 Blood Pressure Mean [Right Arm] Pulse Oximetry 93 Oxygen Delivery Method Room Air Room Air Sepsis New/Unexplained Change in Mental Status Sepsis Action Taken by Nursing Laboratory Data 08/22/25 12:05 08/22/25 12:05 Lab Results 08/22/25 08/22/25 Range/Units 12:05 12:07 WBC 13.94 H (4.8-10.8) K/ul RBC 3.93 L (4.20-5.40) M/uL Hgb 8.1 L (12.0-16.0) g/dl Hct 26.7 L (37.0-47.0) % MCV 67.9 L (80.0-100.0) fL MCH 20.6 L (25.0-34.0) pg MCHC 30.3 L (32.0-36.0) g/dL RDW Std Deviation 36.5 (36.4-46.3) fL RDW Coeff of Tim 15.6 H (11.5-14.5) % Plt Count 261 (130-400) K/uL MPV 9.7 (9.4-12.4) fL Immature Gran % (Auto) 0.6 % Neut % (Auto) 51.4 % Lymph % (Auto) 37.1 % Bollinger % (Auto) 10.1 % Eos % (Auto) 0.6 % Baso % (Auto) 0.2 % Neut # (Auto) 7.16 H (1.40-6.50) K/uL Lymph # (Auto) 5.17 H (1.20-3.40) K/uL Bollinger # (Auto) 1.41 H (0.11-0.59) K/uL Eos # (Auto) 0.08 (0.00-0.50) K/uL Baso # (Auto) 0.03 (0.00-0.20) K/uL Immature Gran # (Auto) 0.09 (0.01-0.20) K/uL Absolute Nucleated RBC 0.02 (0.00-0.12) K/uL Nucleated RBC % (auto) 0.1 % Polychromasia 1+ Basophilic Stippling 1+ Microcytosis Present Tear Drop Cells 2+ Acanthocytes (Spur) 1+ Schistocytes 1+ PT 10.9 (9.0-12.0) Seconds INR 1.0 (0.9-1.1) APTT 22 (21-31) Seconds PTT Ratio 0.8 Sodium 138 (136-145) mmol/L Potassium 4.0 (3.5-5.1) mmol/L Chloride 107 (98-107) mmol/L Carbon Dioxide 22 (21-32) mmol/L Anion Gap 9 (3-11) BUN 24 H (6-23) mg/dl Creatinine 0.85 (0.6-1.2) mg/dl Est Cr Clr Drug Dosing 56.3 ml/min eGFR 70.52 BUN/Creatinine Ratio 28.2 H (10-20) Glucose 223 H (70-99(Fasting)) mg/dl Lactate 2.8 H* (0.4-2.0) mmol/L Calcium 9.1 (8.6-10.3) mg/dl Magnesium 1.5 L (1.7-2.4) mg/dl Total Bilirubin 1.0 (0.2-1.0) mg/dl AST 15 (13-39) U/L ALT 10 (7-52) U/L Alkaline Phosphatase 61 (34-104) U/L Troponin I High Sens 133.6 H* (0-14) pg/ml B-Natriuretic Peptide 1462 H (0-100) pg/ml Total Protein 6.1 (6.0-8.3) gm/dl Albumin 4.1 (3.4-5.0) gm/dl Globulin 2.0 L (2.5-4.0) gm/dl Albumin/Globulin Ratio 2.0 (0.9-2) Procalcitonin 0.04 (0-0.5) ng/ml Adenovirus (PCR) Not Detected (NotDetected) B. pertussis DNA (PCR) Not Detected (NotDetected) B.parapertussis DNA PCR Not Detected (NotDetected) C. pneumoniae DNA (PCR) Not Detected (NotDetected) Coronavirus OC43 (PCR) Not Detected (NotDetected) Coronavirus HKU1 (PCR) Not Detected (NotDetected) Coronavirus 229E (PCR) Not Detected (NotDetected) SARS-CoV-2 (PCR) Not Detected (NotDetected) Coronavirus NL63 (PCR) Not Detected (NotDetected) Human Metapneumovir PCR Not Detected (NotDetected) Influenza Type A (PCR) Not Detected (NotDetected) Influenza Type B (PCR) Not Detected (NotDetected) M. pneumoniae (PCR) Not Detected (NotDetected) Parainfluenza 1 (PCR) Not Detected (NotDetected) Parainfluenza 2 (PCR) Not Detected (NotDetected) Parainfluenza 3 (PCR) Not Detected (NotDetected) Parainfluenza 4 (PCR) Not Detected (NotDetected) RSV (PCR) Not Detected (NotDetected) Entero/Rhino (PCR) Not Detected (NotDetected) Administered Medications Magnesium Sulfate/Dextrose (Magnesium Sulfate / D5w) 1 gm in 100 mls @ 100 mls/hr IV NOW STA Stop: 08/22/25 14:06 Last Admin: 08/22/25 13:28 Dose: 100 mls/hr Documented By: CC Discontinued Medications Sodium Chloride (Nss) 500 mls @ 999 mls/hr IV .Q31M ONE Stop: 08/22/25 13:37 Last Admin: 08/22/25 13:28 Dose: 999 mls/hr Documented By: CC Imaging Data Radiologist's Impression: Chest X-Ray 08/22/25 11:49 SINGLE VIEW CHEST CLINICAL HISTORY: Sepsis FINDINGS: An AP, portable, upright chest radiograph is compared to study dated 05/04/2022 and correlated with chest CT dated 01/21/2022. The heart is mildly enlarged noting atherosclerotic calcification of the thoracic aorta. There is pulmonary vascular congestion. Bilateral airspace opacities likely representing pulmonary edema. There are asymmetric airspace opacities at the right lung base. No large pleural effusion or pneumothorax is seen. The skeletal structures are osteopenic. There are chronic/healed left-sided rib fractures. Degenerative change is seen in the shoulders and spine. IMPRESSION: 1. Mild cardiomegaly with evidence of congestive failure. 2. Bilateral airspace opacities likely representing pulmonary edema. Correlate clinically for evidence of a superimposed infectious/inflammatory pneumonitis. Radiographic follow-up to resolution is recommended. 3. Asymmetric airspace opacities at the right lung base could also represent pneumonia. ACT 112: Negative or not required by law. Electronically signed by: Pelon Plummer M.D. 08/22/2025 12:42 PM Discharge Plan Visit Data Chief Complaint: Shortness of Breath/Dyspnea Stated Complaint: CHEST TIGHTNESS SOB WHEEZING ED Provider: Yesenia Olivarez Discharge Problem: Pneumonia, CHF (congestive heart failure), Pulmonary edema, Hypomagnesemia, Elevated lactic acid level, Elevated brain natriuretic peptide (BNP) level, Elevated troponin Patient Disposition: Admitted As Inpatient Condition: Fair Forms Stand Alone Forms: [email or web address] Prescriptions Prescriptions: No Action atorvastatin 20 mg tablet 20 mg PO QAM citalopram 40 mg tablet 40 mg PO DAILY levothyroxine 88 mcg tablet 88 mcg PO DAILYBB alprazolam 0.25 mg tablet 0.25 mg PO DAILY PRN (Reason: Anxiety) metformin 1,000 mg tablet 1,000 mg PO BID albuterol sulfate 90 mcg/actuation HFA aerosol inhaler 2 puff INHALATION QID PRN (Reason: asthma) Rx Instructions: ordered qid but states she takes 2 times a night only Trulicity 1.5 mg/0.5 mL pen injector 1.5 mg SUBCUT WK Rx Instructions: sundays ascorbic acid (vitamin C) [Vitamin C] 500 mg Tablet 500 mg PO DAILY folic acid 1 mg Tablet 1 mg PO DAILY aspirin 81 mg Tablet,Chewable 81 mg PO QAM magnesium 250 mg Tablet 250 mg PO QAM cholecalciferol (vitamin D3) [Vitamin D3] 25 mcg (1,000 unit) Tablet 25 mcg PO DAILY coQ10 (ubiquinol) 100 mg Capsule 100 mg PO QPM cyanocobalamin (vitamin B-12) [Vitamin B-12] 250 mcg Tablet 250 mcg PO QAM meclizine 25 mg Tablet 25 mg PO DAILY PRN (Reason: Dizziness) lutein 20 mg Tablet 20 mg PO QAM Probiotic Acidophilus 1.5 mg (250 million cell) Capsule 1,000 mmu cells PO DAILY carboxymethylcellulose sodium 1 % Drops, Liquid Gel 21 drp OPB QID PRN (Reason: alternate with oasis tears) Black Elderberry 575 mg PO DAILY meloxicam 7.5 mg Tablet 7.5 mg PO DAILY ticagrelor [Brilinta] 90 mg Tablet 90 mg PO BID tafluprost (PF) 0.0015 % Dropperette 1 drp OPHTHALMIC (EYE) DAILY Rx Instructions: administer at bedtime diclofenac sodium 1 % Gel 2 g TOPICAL QID PRN (Reason: Pain) Rx Instructions: apply to single elbow, wrist or hand; for hand includes palm/fingers/back of hand oxycodone-acetaminophen [Percocet] 5-325 mg Tablet 1 tab PO Q6H PRN (Reason: pain) Qty: 8 0RF midodrine 10 mg Tablet 5 mg PO BID Qty: 7 0RF Rx Instructions: Hold for systolic BP > 110 Referrals Referrals: Yari Starr MD [Primary Care Provider] -
--- NOTE | 2025-08-22 13:46 | History & Physical Report ---
Date of Service August 22, 2025 Assessment & Plan (1) CAP (community acquired pneumonia): (2) Beta thalassemia: (3) Hyperlipidemia: (4) PAD (peripheral artery disease): (5) DM II (diabetes mellitus, type II), controlled: (6) Diabetic retinopathy: Plan Suspected Pneumonia - CXR is concerning for possible pna, cough, elevated WBC 13.94, Lactate 2.8, respiratory panel negative - Check sputum culture - Unknown EF, will obtain echo now to evaluate with elevated BNP, she appears euvolemic on exam. Likely underlying infectious source like pna causing worsening pulmonary edema. - Obtain CTA PE chest to further evaluate, significantly tachycardic during exam - BCx x 2, started on azithromycin and ceftriaxone in ER, switch to cefepime IV - IS/ flutter, mucinex, duonebs - BNP elevated 1462, Trop 133.6 will trend Q6H - EKG Reviewed personally showing sinus tachycardia, no T wave abnormalities or signs of ischemia - BP borderline low upon admission Hypomagnesemia - 1.5 on admission, replace with IV mag CLL Beta thalassemia (heterozygous) Anemia - Hgb of 8.1, appear her normal range is micocytic and typically 9-10 range, monitor with am labs - Has hx of hepatomegaly, no evidenc of splenomegaly on US abd. - Follow with heme/onc Dr. Plata as outpatient Dm II Diabetic retinopathy Glaucoma - ISS with accuchecks achs - A1C with am labs, last was 5.3 on 09/12/24 in [facility] on reivew Carotid aa stenosis and subclavian artery high grade stenosis - following with Dr. Jones previously - cont Brillinta 90 mg BID Other chronic medical issues: ERICA on cpap - noncompliant with cpap HS - encourage upon discharge Hypothyroidism Depression/Fibromyalgia DVT ppx: teds, scds Lines: PIV x 1 FEN/GI: HH/DM II CODE: Full code Dispo: From home, likely to remain in the hospital x 1-2 days I spent a total of 75 minutes with greater than 50% of that time face to face with the patient, personally reviewing all current laboratories, imaging studies, past medication reconciliation, outpatient chart review, and discussion with specialists to collaborate care for the patient excluding time spent in the performance of separately billed services or time spent by another provider/QHP. Please see attending documentation for corrections and/or additions. 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 The significant shortness of breath with ADLs, cough nonproductive started last evening. Her daughter who was present at bedside supports the HPI, reports that she has been intermittently short of breath over the past 5 months. Denies any known history of heart failure. She denies any known sick contacts. She is taking all of her home medications but missed them this morning due to feeling so poorly. She has not yet eaten today. Patient has been afebrile, denies any postnasal drip, runny nose, nausea, vomiting or other changes. She is not compliant with her CPAP at bedtime. States that she has been fatigued and sometimes sleeps between 12 to 15 hours/day and occasionally takes a nap. Her daughter lives in an apartment upstairs from her mother, supports the history. In the ER patient is found to have a WBC of 14K, magnesium 1.5, troponin elevated at 133.6, BNP 1462, lactae 2.4. Her respiratory viral panel is negative. Allergies Allergy/AdvReac Type Severity Reaction Status Date / Time No Known Allergies Allergy Verified 03/21/25 07:13 Home Medications Medication Instructions Recorded Confirmed Type Black Elderberry 575 mg PO DAILY 01/21/22 08/22/25 History albuterol sulfate 90 mcg/actuation 2 puff inhalation QID PRN asthma 01/21/22 08/22/25 History aerosol inhaler alprazolam 0.25 mg tablet 0.25 mg PO DAILY PRN Anxiety 01/21/22 08/22/25 History ascorbic acid (vitamin C) 500 mg 500 mg PO DAILY 01/21/22 08/22/25 History tablet (Vitamin C) atorvastatin 20 mg tablet 40 mg PO QAM 01/21/22 08/22/25 History cholecalciferol (vitamin D3) 25 25 mcg PO DAILY 01/21/22 08/22/25 History mcg (1,000 unit) tablet (Vitamin D3) citalopram 40 mg tablet 40 mg PO DAILY 01/21/22 08/22/25 History coQ10 (ubiquinol) 100 mg capsule 100 mg PO QPM 01/21/22 08/22/25 History cyanocobalamin (vitamin B-12) 250 250 mcg PO QAM 01/21/22 08/22/25 History mcg tablet (Vitamin B-12) dulaglutide 1.5 mg/0.5 mL 1.5 mg subcut WK 01/21/22 08/22/25 History subcutaneous pen injector (Trulicity) folic acid 1 mg tablet 1 mg PO DAILY 01/21/22 08/22/25 History levothyroxine 88 mcg tablet 88 mcg PO DAILYBB 01/21/22 08/22/25 History lutein 20 mg tablet 20 mg PO QAM 01/21/22 08/22/25 History magnesium 250 mg tablet 250 mg PO QAM 01/21/22 08/22/25 History meclizine 25 mg tablet 25 mg PO DAILY PRN Dizziness 01/21/22 08/22/25 History metformin 1,000 mg tablet 1,000 mg PO BID 01/21/22 08/22/25 History diclofenac sodium 1 % topical gel 2 g topical QID PRN Pain 03/20/25 08/22/25 History meloxicam 7.5 mg tablet 7.5 mg PO DAILY 03/20/25 08/22/25 History tafluprost (PF) 0.0015 % eye drops 1 drp ophthalmic (eye) DAILY 03/20/25 08/22/25 History in a dropperette ticagrelor 90 mg tablet (Brilinta) 90 mg PO BID 03/20/25 08/22/25 History Past Med/Surg History Problem List (Updated 08/22/25 @ 14:28 by Aspen Valdes PA-C) CAP (community acquired pneumonia) Elevated troponin (Acute) Elevated brain natriuretic peptide (BNP) level (Acute) Elevated lactic acid level (Acute) Hypomagnesemia (Acute) Pulmonary edema (Acute) CHF (congestive heart failure) (Acute) Pneumonia (Acute) Volume overload DM II (diabetes mellitus, type II), controlled Carotid stenosis Abrasion of arm, left (Acute) Hx of colonic polyps Medical History Anxiety Beta thalassemia Stable- follows with heme/onc per PCP records (baseline Hgb 9-9.5; on no treatment per records) Carotid artery disease >70% stenosis to right ICA No significant stenosis noted to left ICD per 11/2024 carotid duplex Chronic lymphocytic leukemia Follows with [facility] heme/onc per PCP records Diabetes Diabetic retinopathy Fibromyalgia Glaucoma Hx of fall (12/13/24) went to [facility]- stitches in forehead- had blood transfusion fall vs syncope per records Hyperlipidemia Hypertension 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 per records PAD (peripheral artery disease) 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 per vascular records PTSD (post-traumatic stress disorder) Sleep apnea not using cpap- states she needs to be retested Vertigo Per vascular records x years Surgical History History of esophagogastroduodenoscopy (EGD) History of eye surgery History of numerous eye injections, laser surgery, trabeculoplasty per records Hx of colonoscopy with polypectomy Family History Other Family history non-contributory Social History Smoking Status: Former smoker Tobacco Type: Cigarettes Second Hand Exposure: No; Do You Dip or Chew Tobacco: No; Hx Alcohol Use: No Hx Substance Use: No Preferred Language: Jordanian Communication Ability: Effective Research Manufacturing Operator Required: No Beliefs That Will Affect Care: None Current Living Situation: Alone Feels Safe at Home: Yes Assistive Devices: Cane, CPAP and Walker Review of Systems Review of Systems: Constitutional: No fever, sweats or chills Eyes: No diplopia, no worsening or blurred vision ENT: normal hearing, no trouble swallowing Respiratory:+ Dry cough,no sputum,no dyspnea at rest , + BRADLEY with minimal ADLs and exertion. Cardiovascular: No chest pain, tightness or palpitations Abdomen: No pain, nausea, vomiting, diarrhea or constipation Musculoskeletal: No joint pain, calf pain, swelling Neurologic: No weakness, numbness/tingling, + balance problems, uses a cane at baseline Psychiatric: No anxiety, + depression, + fibromyalgia Skin: No rash or itch Physical Exam Physical Exam: General: awake, alert, no apparent distress, elderly white female, + pallor, + obese abdominally Head: Normocephalic, atraumatic ENT: PERRL, EOMI, no pharyngeal exudate, mucous membranes moist Chest: + Diminished breath sounds in the left base, on room air, O2 sats are 93%, + faint expiratory wheezing bilaterally improved with cough Cardiac: Sinus tachycardia, no murmur, no JVD, normal peripheral pulses, good capillary refill Abdominal: NABS x 4 quadrants, soft, nondistended, nontender to palpation, no rebound or guarding Extremities: Normal inspection, no peripheral edema or erythema, calfs nontender to palpation Psych: Normal mood and affect Neuro: AAO x 3, strength intact bilaterally and rated 5/5, no motor deficits, speech is clear, no peripheral sensory deficits Results & Data Results & Data Vital Signs (Past 12 Hours) Vital Signs Temp Pulse Pulse Resp BP BP Pulse Ox 08/22/25 13:08 08/22/25 12:30 108 H 17 111/60 93 08/22/25 12:27 108 H 18 99/57 L 95 08/22/25 12:24 08/22/25 12:06 109 H 20 99/57 L 08/22/25 12:06 109 H 08/22/25 11:49 08/22/25 11:44 37.3 C 115 H 18 99/62 L 98 O2 Del Method 08/22/25 13:08 Room Air 08/22/25 12:30 Room Air 08/22/25 12:27 Room Air 08/22/25 12:24 Room Air 08/22/25 12:06 08/22/25 12:06 08/22/25 11:49 Room Air 08/22/25 11:44 Room Air Laboratory Results 08/22/25 12:20 Aerobic Blood Culture - Pending Blood Anaerobic Blood Culture - Pending 08/22/25 12:04 Aerobic Blood Culture - Pending Blood Anaerobic Blood Culture - Pending 08/22/25 08/22/25 12:07 12:05 WBC 13.94 H RBC 3.93 L Hgb 8.1 L Hct 26.7 L MCV 67.9 L MCH 20.6 L MCHC 30.3 L RDW Std Deviation 36.5 RDW Coeff of Tim 15.6 H Plt Count 261 MPV 9.7 Immature Gran % (Auto) 0.6 Neut % (Auto) 51.4 Lymph % (Auto) 37.1 Ballard % (Auto) 10.1 Eos % (Auto) 0.6 Baso % (Auto) 0.2 Neut # (Auto) 7.16 H Lymph # (Auto) 5.17 H Ballard # (Auto) 1.41 H Eos # (Auto) 0.08 Baso # (Auto) 0.03 Immature Gran # (Auto) 0.09 Absolute Nucleated RBC 0.02 Nucleated RBC % (auto) 0.1 Polychromasia 1+ Basophilic Stippling 1+ Microcytosis Present Tear Drop Cells 2+ Acanthocytes (Spur) 1+ Schistocytes 1+ PT 10.9 INR 1.0 APTT 22 PTT Ratio 0.8 Sodium 138 Potassium 4.0 Chloride 107 Carbon Dioxide 22 Anion Gap 9 BUN 24 H Creatinine 0.85 Est Cr Clr Drug Dosing 56.3 eGFR 70.52 BUN/Creatinine Ratio 28.2 H Glucose 223 H Lactate 2.8 H* Calcium 9.1 Magnesium 1.5 L Total Bilirubin 1.0 AST 15 ALT 10 Alkaline Phosphatase 61 Troponin I High Sens 133.6 H* B-Natriuretic Peptide 1462 H Total Protein 6.1 Albumin 4.1 Globulin 2.0 L Albumin/Globulin Ratio 2.0 Procalcitonin 0.04 Adenovirus (PCR) Not Detected B. pertussis DNA (PCR) Not Detected B.parapertussis DNA PCR Not Detected C. pneumoniae DNA (PCR) Not Detected Coronavirus OC43 (PCR) Not Detected Coronavirus HKU1 (PCR) Not Detected Coronavirus 229E (PCR) Not Detected SARS-CoV-2 (PCR) Not Detected Coronavirus NL63 (PCR) Not Detected Human Metapneumovir PCR Not Detected Influenza Type A (PCR) Not Detected Influenza Type B (PCR) Not Detected M. pneumoniae (PCR) Not Detected Parainfluenza 1 (PCR) Not Detected Parainfluenza 2 (PCR) Not Detected Parainfluenza 3 (PCR) Not Detected Parainfluenza 4 (PCR) Not Detected RSV (PCR) Not Detected Entero/Rhino (PCR) Not Detected Diagnostic Findings Chest X-Ray 08/22/25 11:49 SINGLE VIEW CHEST CLINICAL HISTORY: Sepsis FINDINGS: An AP, portable, upright chest radiograph is compared to study dated 05/04/2022 and correlated with chest CT dated 01/21/2022. The heart is mildly enlarged noting atherosclerotic calcification of the thoracic aorta. There is pulmonary vascular congestion. Bilateral airspace opacities likely representing pulmonary edema. There are asymmetric airspace opacities at the right lung base. No large pleural effusion or pneumothorax is seen. The skeletal structures are osteopenic. There are chronic/healed left-sided rib fractures. Degenerative change is seen in the shoulders and spine. IMPRESSION: 1. Mild cardiomegaly with evidence of congestive failure. 2. Bilateral airspace opacities likely representing pulmonary edema. Correlate clinically for evidence of a superimposed infectious/inflammatory pneumonitis. Radiographic follow-up to resolution is recommended. 3. Asymmetric airspace opacities at the right lung base could also represent pneumonia. ACT 112: Negative or not required by law. Electronically signed by: Pelon Plummer M.D. 08/22/2025 12:42 PM ECG Additional Comments: Sinus tachycardia Code Status & VTE Plan Code Status Full code - discussed with pt at bedside Supervising Physician Co-Signing Physician Notes Patient seen and examined at bedside. Patient doing ok today, has been having fatigue, cough, diffuse mild chest pain, SOB, and bilateral LE weakness for past few days. Denies leg swelling. On exam, diffuse mild rhonchi, sinus tachycardia noted, mild uptrending fever curve, no pitting edema, JVP not elevated. Leukocytosis of 14 noted (in setting of CLL), Hgb at baseline, elevated BUN/creatinine ratio suggestive of dehydrati on, elevated LA suggestive of mild shock state, Mg of 1.5 replenished, elevated troponin likely type 2 in setting of infection and perhaps HF, biofire negative. XR chest consistent with infiltrates and pulmonary edema, EKG relatively unremarkable except mild T wave changes in lateral leads. Patient presentation consistent with severe sepsis (leukocytosis, tachycardia with chest source) in setting of CAP (cough, borderline fever, groundglass infiltrates on CT imaging), pulmonary edema and likely type 2 ND. Differential includes decompensated HF (although patient appears euvolemic), RV failure, PE (given CLL and tachycardia). Patient immunocompromised in setting of CLL. Will start cefepime (given immunocompromised)/azithromcyin, flutter valve, incentive spirometer, start 20 IV bid lasix, CTA PE. Echo ordered. Trend troponin, hold heparin given no active chest pain (will start if troponin jumps significantly). PT/OT given weakness in elderly. -update after imaging: also appears to have worsening CLL, will need to f/u with Dr. Plata outpatient for consideration of treatment given worsening fatigue and lymphadenopathy I have seen and discussed the case with the collaborating advanced practitioner. I agree with the above H&P. I have reviewed and confirmed the patients medical history, the findings on physical examination, and the patients diagnosis and treatment plan with Aspen Valdes PA-C and agree with the information documented. I spent a total of 40 minutes coordinating, documenting, and providing care for this patient excluding time spent in the performance of separately billed services. All of the aforementioned completed outside of collaborating with the assigned advanced practitioner for a full treatment plan. I have reviewed the advanced practitioner's documentation, and I agree with, and take responsibility for the plan of care (3) Hyperlipidemia Hyperlipidemia type: unspecified Qualified Code(s): E78.5 - Hyperlipidemia, unspecified
--- NOTE | 2025-08-22 14:31 | Electrocardiogram Report ---
Test Reason : Blood Pressure : */* mmHG Vent. Rate : 114 BPM Atrial Rate : 114 BPM P-R Int : 172 ms QRS Dur : 106 ms QT Int : 354 ms P-R-T Axes : 75 -60 95 degrees QTcB Int : 487 ms Sinus tachycardia Left axis deviation Septal infarct , age undetermined Abnormal ECG When compared with ECG of 21-Jan-2022 19:50, QRS duration has increased Septal infarct is now Present Nonspecific T wave abnormality now evident in Lateral leads Confirmed by Kevin Forrest ([id number]) on 08/22/2025 2:23:15 PM Referred By: REFERRED SELF Confirmed By: Kevin Forrest
[2025-08-22] MEDS: cefTRIAXone SODIUM 2,000 MG/50 ML BAG IV STA (15:23)
[2025-08-22] MEDS: AZITHROMYCIN 250 MG TAB PO ONE (15:29)
[2025-08-22] MEDS: CEFEPIME 2000MG 2,000 MG/20 ML SYR IV STA (15:29)
[2025-08-22] MEDS: SODIUM CHLORIDE 0.9% 1,000 ML IV SCH (15:33)
--- NOTE | 2025-08-22 15:46 | XCELERA ---
[id number]
[2025-08-22] MEDS: OPTIRAY 320 125ml IV ONE (15:48)
--- NOTE | 2025-08-22 16:15 | CT Scan Report ---
CT angio chest PE protocol CT DOSE: 1129.08 mGy.cm HISTORY: 79 years-old Female with PE. Acute shortness of breath with malaise TECHNIQUE: Multiple CTA images of the chest were obtained after the intravenous administration of 1:1 5 ml Optiray. Coronal and sagittal MIPS were obtained from the axial data set and were submitted for review. All measurements were obtained according to NASCET criteria. A dose lowering technique was utilized adhering to the principles of ALARA. COMPARISON: Chest radiograph of same day, CTA chest 01/21/2022 FINDINGS: CTA: Heart is normal in size. Trace pericardial effusion. Extensive coronary artery calcifications. Athero sclerosis of the aorta with high-grade stenosis at the origin of the left subclavian artery again not ed. There is additional stenosis of the upper abdominal aorta. No pulmonary emboli are identified, ho wever respiratory motion artifact limits evaluation of the lung bases. CT CHEST: No thyroid nodule. Pathologically enlarged mediastinal, hilar, axillary, subpectoral and supraclavicu lar lymph nodes redemonstrated. Index left axillary lymph node on image 1 series 4 measures 2.7 x 2.0 cm, previously 2.8 x 1.8 cm. A 1.27 a right axillary lymph node image 155 is unchanged. Subcarinal l ymph adenopathy has increased in size from prior. [id number] layering pleural effusions. No pneumothorax. Intralobular septal thickening with in termixed groundglass opacities. Mild dependent bibasilar consolidation/atelectasis ill-defined 8 mm n odular density in the lingula on image 132 series 4, not clearly seen on prior. A few additional scat tered 4 mm solid pulmonary nodules are noted bilaterally. Central airways are patent. Tiny hiatal hernia. Pathologically enlarged upper abdominal lymph nodes. Spleen appears normal in siz e. Anasarca. No acute fracture identified. IMPRESSION: 1. Cardiomegaly with pulmonary edema and [id number] layering pleural effusions. 2. No pulmonary emboli identified. 3. Pathologic lymphadenopathy of the chest and upper abdomen redemonstrated. The subcarinal lymphaden opathy has progressed from 2021. Correlate clinically to exclude a lymphoproliferative process. 4. The spleen appears normal in size. 5. There are a few scattered subcentimeter bilateral solid pulmonary nodules measuring up to 8 mm wit hin the lingula. Follow-up guidelines below. Please refer to below summary of Fleischner criteria recommendations for follow-up of incidental CT n odules (Logan Lee, Guidelines for management of small pulmonary nodules detected on CT scans: A sta tement from the Fleischner Society, Radiology 237: [phone].) SOLID NODULES Multiple nodules size: <6 mm * Low risk patients: no routine follow-up * high risk patients: optional CT at 12 months Multiple nodules size: 6-8 mm * Low risk patients: follow-up at 3-6 months, then consider further follow-up at 18-24 months * high risk patients: follow-up at 3-6 months, then at 18-24 months if no change Multiple nodules size: >8 mm * Low risk patients: follow-up at 3-6 months, then consider further follow-up at 18-24 months * high risk patients: follow-up at 3-6 months, then at 18-24 months if no change Note: newly detected indeterminate nodule in persons 35 years of age or older. * Low risk patients: minimal or absent history of smoking and/or other known risk factors * high risk patients: history of smoking or of other known risk factors (e.g. first degree relative with lung cancer, or exposure to asbestos, radon, uranium) * if a nodule up to 8 mm is partly solid or is ground glass further follow-up is required after 24 m onths to exclude possible slow growing adenocarcinoma (OLAYINKA) The above report was generated using voice recognition software. It may contain grammatical, syntax o r spelling errors. ACT 112: Negative or not required by law. The above report was generated using voice recognition software. It may contain grammatical, syntax o r spelling errors. Electronically signed by: Niko Kam M.D. 08/22/2025 4:13 PM
[2025-08-22] MEDS ORDERED: ACETAMINOPHEN 325 MG TAB PO PRN (17:11)
[2025-08-22] MEDS ORDERED: GLUCAGON FOR INJ 1 MG VIAL SQ PRN (17:11)
[2025-08-22] MEDS ORDERED: ONDANSETRON INJ 2 MG/ML 2 ML VIAL IV PRN (17:11)
[2025-08-22] MEDS ORDERED: CARBOHYDRATES FOR HYPOGLYCEMIA PO PRN (17:11)
[2025-08-22] MEDS ORDERED: GLUCOSE 10 TAB/TUBE PO PRN (17:11)
[2025-08-22] MEDS ORDERED: DEXTROSE 50% 50 ML SYRINGE IV PRN (17:11)
[2025-08-22] MEDS ORDERED: GLUCOSE 40% GEL 15 GM TUBE PO PRN (17:11)
[2025-08-22] MEDS: FUROSEMIDE INJ 20 MG/2 ML VIAL IV ONE (17:26)
[2025-08-22] MEDS: Heparin IV Adult Wt-Based Low-Dose w/ INITIAL Bolus Protocol IV STA (17:27)
[2025-08-22] MEDS: HEPARIN SOD (PORCINE) 1000 UNIT/ML IV ONE (17:27)
[2025-08-22] MEDS: HEPARIN 25000 UNIT/500 ML D5W 25,000 UNITS/500 ML BAG IV SCH (17:27)
[2025-08-22 17:29] LABS: Cholesterol 91.0 mg/dl (0-200); HDL Cholesterol 40.0 mg/dl; Triglycerides 70.0 mg/dl (0-150)
--- NOTE | 2025-08-22 17:42 | Cardiology Consultation ---
Date of Consultation August 22, 2025 Assessment & Plan (1) Cardiomyopathy: (2) Elevated troponin: (3) Bifascicular bundle branch block: (4) CHF (congestive heart failure): Plan 79-year-old female multiple cardiovascular risk factors as outlined, known vascular disease presented with several days history of increased malaise shortness of breath and intermittent chest pressure. Describes nonproductive cough with activity and lying flat. Initial chest x-ray and CAT scan consistent with mild congestive heart failure with superimposed pneumonia not excluded. EKG with right bundle branch block intermittent left anterior fascicular block as well Echocardiogram with extensive mid and apical ventricular wall motion abnormality consistent with ischemic cardiomyopathy versus apical ballooning cardiomyopathy. Patient clinically improving in hospital with antibiotics oxygen and mild hydration initially. Issues addressed 1. Cardiomyopathy ischemic versus apical ballooning with multiple vascular risk factors. Ejection fraction 30 to 35% 2. Congestive heart failure without profound volume overload 3. Bifascicular heart block Plan: Initiate anticoagulation with IV heparin Continue oral Brilinta Patient is given single dose of IV furosemide receiving now 20 mg will follow response Initiate beta-petr with metoprolol to tartrate 12.5 mg Q6 given conduction abnormalities, marginal blood pressure Keep n.p.o. after midnight with anticipation of possible coronary angiography tomorrow. Discussed with patient and daughter History of Present Illness Reason for Consultation: Abnormal EKG, echocardiogram Requesting Physician: Mavis gomes Attending Physician: Derek Farfan MD History of Present Illness Patient is a complex 79-year-old female whose underlying concerns include 1. Atherosclerotic carotid vascular disease, left subclavian artery stenosis status post TCAR right carotid March 2025. Disease incidentally found after syncopal event with ambulation November 2024 2. Hyperlipidemia on 3. Type 2 diabetes mellitus 4. 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 Patient noted 2 to 3-day history of worsening weakness fatigue and malaise, intermittent chest pressure and cough and shortness of breath when reclining. Today marked dyspnea with minimal exertion. Initial chest x-ray with vascular congestion versus infiltrate patient treated with fluids magnesium and antibiotic therapies. EKG demonstrates sinus tachycardia with right bundle branch block intermittent left anterior fascicular block. Has felt improved since presenting to the ER has received antibiotics and supplemental oxygen. Has remained tachycardic. Patient referred due to concerns regarding EKGs with intermittent worsening conduction abnormalities, right bundle branch block, left anterior fascicular block, elevated troponin, abnormal echo. No prior history of cardiac disease myocardial infarction, angina or congestive heart failure. No noted symptoms of tachypalpitations. Cardiovascular risk factors include age known vascular disease, type 2 diabetes mellitus, dyslipidemia, prior tobacco use Patient has been taking medications as prescribed faithfully including Brilinta since TCAR performed Allergies Allergy/AdvReac Type Severity Reaction Status Date / Time No Known Allergies Allergy Verified 03/21/25 07:13 Home Medications Medication Instructions Recorded Confirmed Type Black Elderberry 575 mg PO DAILY 01/21/22 08/22/25 History albuterol sulfate 90 mcg/actuation 2 puff inhalation QID PRN asthma 01/21/22 08/22/25 History aerosol inhaler alprazolam 0.25 mg tablet 0.25 mg PO DAILY PRN Anxiety 01/21/22 08/22/25 History ascorbic acid (vitamin C) 500 mg 500 mg PO DAILY 01/21/22 08/22/25 History tablet (Vitamin C) atorvastatin 20 mg tablet 40 mg PO QAM 01/21/22 08/22/25 History cholecalciferol (vitamin D3) 25 25 mcg PO DAILY 01/21/22 08/22/25 History mcg (1,000 unit) tablet (Vitamin D3) citalopram 40 mg tablet 40 mg PO DAILY 01/21/22 08/22/25 History coQ10 (ubiquinol) 100 mg capsule 100 mg PO QPM 01/21/22 08/22/25 History cyanocobalamin (vitamin B-12) 250 250 mcg PO QAM 01/21/22 08/22/25 History mcg tablet (Vitamin B-12) dulaglutide 1.5 mg/0.5 mL 1.5 mg subcut WK 01/21/22 08/22/25 History subcutaneous pen injector (Trulicity) folic acid 1 mg tablet 1 mg PO DAILY 01/21/22 08/22/25 History levothyroxine 88 mcg tablet 88 mcg PO DAILYBB 01/21/22 08/22/25 History lutein 20 mg tablet 20 mg PO QAM 01/21/22 08/22/25 History magnesium 250 mg tablet 250 mg PO QAM 01/21/22 08/22/25 History meclizine 25 mg tablet 25 mg PO DAILY PRN Dizziness 01/21/22 08/22/25 History metformin 1,000 mg tablet 1,000 mg PO BID 01/21/22 08/22/25 History diclofenac sodium 1 % topical gel 2 g topical QID PRN Pain 03/20/25 08/22/25 History meloxicam 7.5 mg tablet 7.5 mg PO DAILY 03/20/25 08/22/25 History tafluprost (PF) 0.0015 % eye drops 1 drp ophthalmic (eye) DAILY 03/20/25 08/22/25 History in a dropperette ticagrelor 90 mg tablet (Brilinta) 90 mg PO BID 03/20/25 08/22/25 History Patient History Medical History Vertigo Per vascular records x years PAD (peripheral artery disease) 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 per vascular records Hx of fall (12/13/24) went to [facility]- stitches in forehead- had blood transfusion fall vs syncope per records Glaucoma Carotid artery disease >70% stenosis to right ICA No significant stenosis noted to left ICD per 11/2024 carotid duplex Fibromyalgia Diabetic retinopathy PTSD (post-traumatic stress disorder) Beta thalassemia Stable- follows with heme/onc per PCP records (baseline Hgb 9-9.5; on no treatment per records) Hyperlipidemia Chronic lymphocytic leukemia Follows with [facility] heme/onc per PCP records Hypertension Anxiety Sleep apnea not using cpap- states she needs to be retested Surgical History Hx of colonoscopy with polypectomy History of esophagogastroduodenoscopy (EGD) History of eye surgery History of numerous eye injections, laser surgery, trabeculoplasty per records Family History Other Family history non-contributory Social History Smoking Status: Former smoker Tobacco Type: Cigarettes Second Hand Exposure: No; Do You Dip or Chew Tobacco: No; Hx Alcohol Use: No Hx Substance Use: No Preferred Language: Cypriot Communication Ability: Effective Stock Feeder Required: No Beliefs That Will Affect Care: None Current Living Situation: Alone Feels Safe at Home: Yes Assistive Devices: Cane, CPAP and Walker Review of Systems Review of Systems: All systems reviewed & are unremarkable except as noted in HPI & below Physical Exam Constitutional: no acute distress Eyes: PERRL, conjunctivae normal, anicteric sclerae ENMT: external ear and nose normal, oropharynx normal Neck: trachea midline, no thyromegaly Right carotid TCAR incision well-healed Respiratory: Auscultation: + crackles Cardiovascular: Rate/Rhythm: regular rate, regular rhythm and + tachycardic Heart Sounds: normal S1 and normal S2; no murmur Vessels: + JVD, femoral pulses present and radial pulses present Extremities: no edema Gastrointestinal (Abdomen): normal bowel sounds, soft, nontender, no hepatosplenomegaly Results & Data Vital Signs (Past 12 Hours) Vital Signs Temp Pulse Pulse Resp BP BP Pulse Ox 08/22/25 16:06 118 H 08/22/25 15:30 112 H 32 H 95 08/22/25 15:30 112/74 08/22/25 15:30 112/74 08/22/25 15:00 110 H 24 102/61 95 08/22/25 14:30 109 H 23 114/63 89 L 08/22/25 13:30 102 H 19 119/83 94 08/22/25 13:09 101 H 22 131/60 92 08/22/25 13:08 08/22/25 12:30 108 H 17 111/60 93 08/22/25 12:27 108 H 18 99/57 L 95 08/22/25 12:24 08/22/25 12:06 109 H 20 99/57 L 08/22/25 12:06 109 H 08/22/25 11:49 08/22/25 11:44 37.3 C 115 H 18 99/62 L 98 O2 Del Method O2 Flow Rate 08/22/25 16:06 08/22/25 15:30 08/22/25 15:30 08/22/25 15:30 08/22/25 15:00 Nasal Cannula 2 08/22/25 14:30 Nasal Cannula 2 08/22/25 13:30 Room Air 08/22/25 13:09 Room Air 08/22/25 13:08 Room Air 08/22/25 12:30 Room Air 08/22/25 12:27 Room Air 08/22/25 12:24 Room Air 08/22/25 12:06 08/22/25 12:06 08/22/25 11:49 Room Air 08/22/25 11:44 Room Air Laboratory Results Laboratory Results - last 24 hr 08/22/25 08/22/25 08/22/25 12:05 12:07 15:21 WBC 13.94 H RBC 3.93 L Hgb 8.1 L Hct 26.7 L MCV 67.9 L MCH 20.6 L MCHC 30.3 L RDW Std Deviation 36.5 RDW Coeff of Tim 15.6 H Plt Count 261 MPV 9.7 Immature Gran % (Auto) 0.6 Neut % (Auto) 51.4 Lymph % (Auto) 37.1 Terrell % (Auto) 10.1 Eos % (Auto) 0.6 Baso % (Auto) 0.2 Neut # (Auto) 7.16 H Lymph # (Auto) 5.17 H Terrell # (Auto) 1.41 H Eos # (Auto) 0.08 Baso # (Auto) 0.03 Immature Gran # (Auto) 0.09 Absolute Nucleated RBC 0.02 Nucleated RBC % (auto) 0.1 Polychromasia 1+ Basophilic Stippling 1+ Microcytosis Present Tear Drop Cells 2+ Acanthocytes (Spur) 1+ Schistocytes 1+ PT 10.9 INR 1.0 APTT 22 PTT Ratio 0.8 Sodium 138 Potassium 4.0 Chloride 107 Carbon Dioxide 22 Anion Gap 9 BUN 24 H Creatinine 0.85 Est Cr Clr Drug Dosing 56.3 eGFR 70.52 BUN/Creatinine Ratio 28.2 H Glucose 223 H POC Glucose Estimat Average Glucose Pending Hemoglobin A1c Pending Lactate 2.8 H* 1.7 Calcium 9.1 Magnesium 1.5 L Total Bilirubin 1.0 AST 15 ALT 10 Alkaline Phosphatase 61 Troponin I High Sens 133.6 H* 114.3 H* B-Natriuretic Peptide 1462 H Total Protein 6.1 Albumin 4.1 Globulin 2.0 L Albumin/Globulin Ratio 2.0 Triglycerides 70 Cholesterol 91 LDL Cholesterol, Calc 37 VLDL Cholesterol, Calc 14 HDL Cholesterol 40 Cholesterol/HDL Ratio 2.3 Procalcitonin 0.04 TSH 2.244 Adenovirus (PCR) Not Detected B. pertussis DNA (PCR) Not Detected B.parapertussis DNA PCR Not Detected C. pneumoniae DNA (PCR) Not Detected Coronavirus OC43 (PCR) Not Detected Coronavirus HKU1 (PCR) Not Detected Coronavirus 229E (PCR) Not Detected SARS-CoV-2 (PCR) Not Detected Coronavirus NL63 (PCR) Not Detected Human Metapneumovir PCR Not Detected Influenza Type A (PCR) Not Detected Influenza Type B (PCR) Not Detected M. pneumoniae (PCR) Not Detected Parainfluenza 1 (PCR) Not Detected Parainfluenza 2 (PCR) Not Detected Parainfluenza 3 (PCR) Not Detected Parainfluenza 4 (PCR) Not Detected RSV (PCR) Not Detected Entero/Rhino (PCR) Not Detected 08/22/25 17:27 WBC RBC Hgb Hct MCV MCH MCHC RDW Std Deviation RDW Coeff of Tim Plt Count MPV Immature Gran % (Auto) Neut % (Auto) Lymph % (Auto) Terrell % (Auto) Eos % (Auto) Baso % (Auto) Neut # (Auto) Lymph # (Auto) Terrell # (Auto) Eos # (Auto) Baso # (Auto) Immature Gran # (Auto) Absolute Nucleated RBC Nucleated RBC % (auto) Polychromasia Basophilic Stippling Microcytosis Tear Drop Cells Acanthocytes (Spur) Schistocytes PT INR APTT PTT Ratio Sodium Potassium Chloride Carbon Dioxide Anion Gap BUN Creatinine Est Cr Clr Drug Dosing eGFR BUN/Creatinine Ratio Glucose POC Glucose 224 H Estimat Average Glucose Hemoglobin A1c Lactate Calcium Magnesium Total Bilirubin AST ALT Alkaline Phosphatase Troponin I High Sens B-Natriuretic Peptide Total Protein Albumin Globulin Albumin/Globulin Ratio Triglycerides Cholesterol LDL Cholesterol, Calc VLDL Cholesterol, Calc HDL Cholesterol Cholesterol/HDL Ratio Procalcitonin TSH Adenovirus (PCR) B. pertussis DNA (PCR) B.parapertussis DNA PCR C. pneumoniae DNA (PCR) Coronavirus OC43 (PCR) Coronavirus HKU1 (PCR) Coronavirus 229E (PCR) SARS-CoV-2 (PCR) Coronavirus NL63 (PCR) Human Metapneumovir PCR Influenza Type A (PCR) Influenza Type B (PCR) M. pneumoniae (PCR) Parainfluenza 1 (PCR) Parainfluenza 2 (PCR) Parainfluenza 3 (PCR) Parainfluenza 4 (PCR) RSV (PCR) Entero/Rhino (PCR) PG Care Time/CCT Total # of Minutes Spent Total Time Spent with Patient: Total time spent is greater than 50% in coordination of care (as documented) at patient's floor/unit and/or counseling patient: Coding Level of Care Code 23263 IN/OBS CONSULT LVL 5,80M Diagnoses Cardiomyopathy I42.9 Elevated troponin R79.89 Bifascicular bundle branch block I45.2 CHF (congestive heart failure) I50.9
[2025-08-22 18:06] LABS: Thyroid Stimulating Hormone 2.215 uIu/ml (0.300-4.500)
[2025-08-22 18:32] LABS: Hematocrit (blood only) 28.5 % (37.0-47.0); Hemoglobin 8.6 g/dl (12.0-16.0); Mean Corpuscular Hemoglobin 20.3 pg (25.0-34.0); Mean Corpuscular Volume 67.4 fL (80.0-100.0); RDW Standard Deviation 35.8 fL (36.4-46.3); Red Blood Count 4.23 M/uL (4.20-5.40); White Blood Count 18.65 K/ul (4.8-10.8)
[2025-08-22] MEDS: METOPROLOL TARTRATE 25 MG TAB PO SCH (19:03)
[2025-08-22] MEDS: INSULIN ASPART PER UNIT CHARGE SC SCH (19:05)
[2025-08-22 19:07] LABS: Appearance Urine Clear (Clear); Bacteria Urine Automated None Seen (None Seen); Cast Urine Automated 0-2 /lpf (0-2); Epithelial Cell Urine Auto 0-2 /hpf (0-2); Glucose Urine UA Negative (Negative); RBC Urine Automated 0-2 /hpf (0-2); WBC Urine Automated 0-5 /hpf (0-5)
[2025-08-22 19:09] LABS: Immature Granulocytes # (auto) 0.22 K/uL (0.01-0.20); Immature Granulocytes % (auto) 1.2 %; Platelet Count 289 K/uL (130-400)
[2025-08-22 19:24] LABS: INR 1.1 (0.9-1.1); Prothrombin Time 11.6 Seconds (9.0-12.0)
[2025-08-22 19:35] LABS: Partial Thromboplastin Time 105 Seconds (21-31)
[2025-08-22 20:03] LABS: Hemoglobin A1C 5.9 % (4.5-5.6)
[2025-08-22] MEDS: TICAGRELOR 90 MG TAB PO SCH (20:44)
[2025-08-22 23:34] LABS: ANTI-Xa, UFH(UnfractionatedHep 0.50 IU/ml (0.3-0.7)
[2025-08-23] MEDS: CEFEPIME 2000MG 2,000 MG/20 ML SYR IV SCH (04:15)
[2025-08-23 05:51] LABS: Hematocrit (blood only) 24.6 % (37.0-47.0); Hemoglobin 7.6 g/dl (12.0-16.0); Mean Corpuscular Hemoglobin 20.7 pg (25.0-34.0); Mean Corpuscular Volume 67.0 fL (80.0-100.0); RDW Standard Deviation 36.0 fL (36.4-46.3); Red Blood Count 3.67 M/uL (4.20-5.40); White Blood Count 16.63 K/ul (4.8-10.8)
[2025-08-23 06:08] LABS: Anion Gap 9.0 (3-11); Blood Urea Nitrogen 26.0 mg/dl (6-23); Calcium 8.9 mg/dl (8.6-10.3); Carbon Dioxide 21.0 mmol/L (21-32); Chloride 107.0 mmol/L (98-107); Cholesterol 84.0 mg/dl (0-200); Creatinine Clr Calc Pharmacy 48.8 ml/min; Glucose 181.0 mg/dl (70-99(Fasting)); HDL Cholesterol 40.0 mg/dl; Potassium 4.5 mmol/L (3.5-5.1); Sodium 137.0 mmol/L (136-145); Triglycerides 53.0 mg/dl (0-150)
[2025-08-23] MEDS: LEVOTHYROXINE SODIUM 88 MCG TABLET PO SCH (06:14)
[2025-08-23 06:16] LABS: ANTI-Xa, UFH(UnfractionatedHep 0.35 IU/ml (0.3-0.7)
[2025-08-23 06:48] LABS: Immature Granulocytes # (auto) 0.14 K/uL (0.01-0.20); Immature Granulocytes % (auto) 0.8 %; Platelet Count 290 K/uL (130-400); Poikilocytosis Present; Polychromasia 1+; Tear Drop Cells 1+
[2025-08-23 07:11] LABS: Hemoglobin A1C 5.9 % (4.5-5.6)
[2025-08-23] MEDS: MAGNESIUM OXIDE 400 MG TAB PO SCH (08:25)
[2025-08-23] MEDS: ATORVASTATIN 40 MG TAB PO SCH (08:25)
[2025-08-23] MEDS: CITALOPRAM 40 MG TAB PO SCH (08:25)
[2025-08-23] MEDS: FOLIC ACID 1 MG TAB PO SCH (08:25)
[2025-08-23] MEDS: CHOLECALCIFEROL 25 MCG (1000 UNITS) TAB PO SCH (08:25)
[2025-08-23] MEDS: DOXYCYCLINE HYCLATE 100 MG CAP PO SCH (08:26)
[2025-08-23] MEDS ORDERED: AZITHROMYCIN 250 MG TAB PO SCH (09:00)
--- NOTE | 2025-08-23 10:54 | Cardiology Progress Note ---
Date of Service August 23, 2025 Assessment & Plan (1) Cardiomyopathy: (2) Elevated troponin: (3) Bifascicular bundle branch block: (4) CHF (congestive heart failure): Plan Assessment: 79-year-old female multiple cardiovascular risk factors as outlined, known vascular disease presented with several days history of increased malaise shortness of breath and intermittent chest pressure. Describes nonproductive cough with activity and lying flat. Initial chest x-ray and CAT scan consistent with mild congestive heart failure with superimposed pneumonia not excluded. EKG with right bundle branch block intermittent left anterior fascicular block as well Echocardiogram with extensive mid and apical ventricular wall motion abnormality consistent with ischemic cardiomyopathy versus apical ballooning cardiomyopathy. Plan: 1. Cardiomyopathy 2. Elevated troponin 3. Bifascicular bundle branch block 4. HFrEF 5. Atherosclerotic carotid artery disease, left subclavian stenosis status post right TCAR March 2025 -Patient demonstrates clinical improvement overnight with use of IV antibiotics and supplemental O2 -Given patient's symptoms, EKG changes, elevated troponin, personal history, family history and abnormal echocardiogram showing severely reduced EF, will keep NPO in anticipation to proceed with cardiac catheterization today. -Continue oral Brilinta -Continue Metoprolol tartrate 12.5mg PO Q6 hours. -Antibiotics for possible superimposed pneumonia per primary team. - Blood pressures right arm only Case has been discussed with Dr. Matson. Further recommendations regarding plan of care as per his assessment. I spent a total of 30 minutes on the date of service in preparation, delivery, documentation of the care provided to the patient excluding any time spent in the performance of separately billed services. FLACO Izaguirre [facility] Admission and Anticipated Discharge Date Admission Date: August 22, 2025 Supervising Physician Co-Signing Physician Notes Patient seen and personally examined, chart, medications, telemetry reviewed. Full assessment and plan as outlined above. Care and management discussed and personally endorsed Troponins continue to rise blood pressure borderline low. Heart rate responding to beta-blockers though dose held last evening due to parameters. Exam heart rate 85 blood pressure 100/60 Right radial pulse 1+ left radial pulse faint Bilateral femoral pulses palpable Plan: Cardiac catheterization to assess cause of cardiomyopathy Takotsubo versus ischemic with patient with multiple ischemic risk factors Continue beta-petr with changed hold parameters EKG given bifascicular heart block today All blood pressures via right arm given left subclavian stenosis, reduced left radial pulse Subjective 08/23/2025: Patient seen and examined in follow up today. Feeling fair. Denies any chest pain, pressure or palpitations overnight. Continues with mild dyspnea; however, reports that supplemental O2 via nasal cannula has helped s ignificantly. Labs, vitals, diagnostics, telemetry and documentation reviewed. Telemetry reviewed showing SR/ST rates 90-110 bpm. NPO in anticipation of cardiac catheterization. Review of Systems Review of Systems: All systems reviewed & are unremarkable except as noted in HPI & below Physical Exam Constitutional: well developed, well nourished and + ill appearing Neck: normal visual inspection and trachea midline Respiratory: normal respiratory effort and + tachypneic; no labored breathing and no cough Auscultation: + diminished lung sounds (bialteral bases ); no crackles, no rales, no rhonchi and no wheezes Cardiovascular: Rate/Rhythm: + tachycardic Heart Sounds: normal S1 and normal S2; no murmur Vessels: dorsalis pedis pulses present; no JVD Extremities: no edema Skin: no rashes, warm and dry Psychiatric: Orientation: alert and oriented x 3 Affect: + anxious affect Results & Data Vital Signs (Past 12 Hours) Vital Signs Temp Pulse Pulse Resp BP Pulse Ox O2 Del Method 08/23/25 07:26 100 H 08/23/25 07:23 36.7 C 89 22 97/64 L 94 Nasal Cannula 08/23/25 06:09 98 H 104/66 95 Nasal Cannula 08/23/25 03:38 36.8 C 101 H 20 111/64 96 Nasal Cannula 08/23/25 00:09 37.4 C 97 H 20 93/63 L 98 Nasal Cannula O2 Flow Rate 08/23/25 07:26 08/23/25 07:23 2 08/23/25 06:09 2 08/23/25 03:38 2 08/23/25 00:09 2 Laboratory Results Cardiac Enzymes 08/22/25 08/22/25 08/22/25 Range/Units 12:05 15:21 18:17 AST 15 (13-39) U/L Troponin I High Sens 133.6 H* 114.3 H* 233.5 H* D (0-14) pg/ml B-Natriuretic Peptide 1462 H (0-100) pg/ml 08/22/25 08/22/25 08/23/25 Range/Units 20:22 22:50 05:27 AST (13-39) U/L Troponin I High Sens 434.9 H* D 732.9 H* D 961.2 H* D (0-14) pg/ml B-Natriuretic Peptide (0-100) pg/ml Coagulation 08/22/25 08/22/25 Range/Units 12:05 18:17 PT 10.9 11.6 (9.0-12.0) Seconds APTT 22 105 H* (21-31) Seconds B-Natriuretic Peptide 1462 H (0-100) pg/ml Lipids 08/22/25 08/23/25 Range/Units 15:21 05:27 Triglycerides 70 53 (0-150) mg/dl Cholesterol 91 84 (0-200) mg/dl HDL Cholesterol 40 40 mg/dl Cholesterol/HDL Ratio 2.3 2.1 (0-5) CBC 08/22/25 08/22/25 08/23/25 Range/Units 12:05 18:17 05:27 WBC 13.94 H 18.65 H 16.63 H (4.8-10.8) K/ul RBC 3.93 L 4.23 3.67 L (4.20-5.40) M/uL Hgb 8.1 L 8.6 L 7.6 L (12.0-16.0) g/dl Hct 26.7 L 28.5 L 24.6 L (37.0-47.0) % Plt Count 261 289 290 (130-400) K/uL Neut # (Auto) 7.16 H 13.23 H 8.74 H (1.40-6.50) K/uL Lymph # (Auto) 5.17 H 3.79 H 6.47 H (1.20-3.40) K/uL Martin # (Auto) 1.41 H 1.36 H 1.21 H (0.11-0.59) K/uL Eos # (Auto) 0.08 0.01 0.03 (0.00-0.50) K/uL Baso # (Auto) 0.03 0.04 0.04 (0.00-0.20) K/uL Comprehensive Metabolic Panel 08/22/25 08/23/25 Range/Units 12:05 05:27 Sodium 138 137 (136-145) mmol/L Potassium 4.0 4.5 (3.5-5.1) mmol/L Chloride 107 107 (98-107) mmol/L Carbon Dioxide 22 21 (21-32) mmol/L BUN 24 H 26 H (6-23) mg/dl Creatinine 0.85 0.98 (0.6-1.2) mg/dl Glucose 223 H 181 H (70-99(Fasting)) mg/dl Calcium 9.1 8.9 (8.6-10.3) mg/dl AST 15 (13-39) U/L ALT 10 (7-52) U/L Alkaline Phosphatase 61 (34-104) U/L Total Protein 6.1 (6.0-8.3) gm/dl Albumin 4.1 (3.4-5.0) gm/dl Intake and Output 08/22/25 08/23/25 08/23/25 22:59 06:59 14:59 Intake Total 563 / 1263 200 / 1263 204.25 / 204.25 Balance 563 / 1263 200 / 1263 204.25 / 204.25 Intake: IV 323 / 823 204.25 / 204.25 Heparin 67067 Unit/500 ml D5w 204.25 / 204.25 25,000 units In 500 ml @ 750 UNITS/HR 15 mls/hr IV .Q24H [facility] Rx#:[id number] Magnesium Sulfate / D5w 1 gm In 100 / 100 100 ml @ 100 mls/hr IV NOW [facility] Rx#:[id number] Sodium Chloride 0.9% 1,000 ml @ 200 / 200 80 mls/hr IV .[id number] [facility] Rx#: [id number] Oral 240 / 440 200 / 440 Other: Weight 78.7 kg 78 kg Weight Measurement Method Standing Scale Built in [facility] Diagnostic Findings Echocardiogram 08/22/2025: LV normal in size Normal LV wall thickness There are segmental abnormalities present with severe hypokinesis to akinesis of the apical and mid ventricular wall segments with basilar structures contacting vigorously. Ischemic vs apical ballooning cardiomyopathy within differential diagnosis LVEF 30-35% There is no significant valvular disease PG Care Time/CCT Total # of Minutes Spent Total Time Spent with Patient: Total time spent is greater than 50% in coordination of care (as documented) at patient's floor/unit and/or counseling patient: Coding Level of Care Code 22464 SUB INP/OBS CARE MIN Diagnoses Cardiomyopathy I42.9 Elevated troponin R79.89 Bifascicular bundle branch block I45.2 CHF (congestive heart failure) I50.9
--- NOTE | 2025-08-23 12:15 | Electrocardiogram Report ---
Test Reason : Blood Pressure : */* mmHG Vent. Rate : 117 BPM Atrial Rate : 117 BPM P-R Int : 152 ms QRS Dur : 150 ms QT Int : 364 ms P-R-T Axes : * -89 79 degrees QTcB Int : 507 ms Sinus tachycardia Left axis deviation Right bundle branch block Anterior infarct (cited on or before 22-Aug-2025) Abnormal ECG When compared with ECG of 22-Aug-2025 11:57, Right bundle branch block is now Present Questionable change in initial forces of Anteroseptal leads Confirmed by Kevin Forrest ([id number]) on 08/23/2025 12:14:55 PM Referred By: REFERRED SELF Confirmed By: Kevin Forrest
--- NOTE | 2025-08-23 13:37 | Hospitalist Progress Note ---
Date of Service August 23, 2025 Assessment & Plan (1) CAP (community acquired pneumonia): (2) Beta thalassemia: (3) Hyperlipidemia: (4) PAD (peripheral artery disease): (5) DM II (diabetes mellitus, type II), controlled: (6) Diabetic retinopathy: Plan Ms. 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 Patient undergoing LHC today. #Acute hypoxic resp failure, likely 2/2 vascular congestion #Acute heart failure with reduced EF, 08/2025 ECHO 30-35% #Suspected Pneumonia r/o, likely related to edema rather than infection CXR is concerning for possible pna, cough, elevated WBC 13.94, Lactate 2.8, respiratory panel negative Procal negative, wbc likely iso CLL CT PE with known pathologic LAD iso CLL ECHO reviewed with question of possible ICM v apical ballooning - Check sputum culture if able, however, will discontinued -Follow infectious work up but will hold abx for now and monitor Cardiology following: catheterization today #Elevated troponin, NSTEMI #Bifascicular bundle branch block. #ASCVD, s/p TCAR 03/2025 suspect likely HF exacerbation, less likely infectious etiology of patient's presentation continue brilinta continue metroprolol q6 for now per cardiology Follow up s/p catheterization continue heparin trop currently at 992.9 #Hypomagnesemia - 1.5 on admission, replace with IV mag CTM and trend #CLL #Beta thalassemia (heterozygous) #Chronic Microcytic Anemia - Hgb of 8.1, appear her normal range is micocytic and typically 9-10 range, monitor with am labs - Has hx of hepatomegaly, no evidenc of splenomegaly on US abd. - Follow with heme/onc Dr. Plata as outpatient trend CBC #Dm II #Diabetic retinopathy #Glaucoma - ISS with accuchecks achs - A1C with am labs, last was 5.3 on 09/12/24 in [facility] on reivew Other chronic medical issues: ERICA on cpap - noncompliant with cpap HS - encourage upon discharge Hypothyroidism Depression/Fibromyalgia DVT ppx: teds, scds Lines: PIV x 1 FEN/GI: HH/DM II CODE: Full code Admission and Anticipated Discharge Date Admission Date: August 22, 2025 Subjective evaluated at bedside with daughter reports feeling well overall and denies any acute concerns no active chest pain, but notes that she has a cough--its more aggravating, like a tickle or tightness in her chest Denies fevers chills Physical Exam Respiratory: diminished, no wheezing or crackles appreciated Cardiovascular: RRR, no murmur, no edema Gastrointestinal (Abdomen): normal bowel sounds, soft, nontender, no hepatosplenomegaly Results & Data Results & Data Vital Signs (Past 12 Hours) Vital Signs Temp Pulse Pulse Resp BP Pulse Ox O2 Del Method 08/23/25 12:48 94 H 18 117/63 96 Nasal Cannula 08/23/25 09:35 Nasal Cannula 08/23/25 07:26 100 H 08/23/25 07:23 36.7 C 89 22 97/64 L 94 Nasal Cannula 08/23/25 06:09 98 H 104/66 95 Nasal Cannula 08/23/25 03:38 36.8 C 101 H 20 111/64 96 Nasal Cannula O2 Flow Rate 08/23/25 12:48 2 08/23/25 09:35 2 08/23/25 07:26 08/23/25 07:23 2 08/23/25 06:09 2 08/23/25 03:38 2 (3) Hyperlipidemia Hyperlipidemia type: unspecified Qualified Code(s): E78.5 - Hyperlipidemia, unspecified
[2025-08-23] MEDS: niCARdipine 2,000 MCG/20 ML SYR ONE (14:37)
[2025-08-23] MEDS: NITROGLYCERIN/D5W 100MCG/ML 20ML SYR ONE (14:37)
[2025-08-23] MEDS: MIDAZOLAM HCL 1 MG/ML 2ML VIAL ONE (15:01)
[2025-08-23] MEDS: IODIXANOL (VISIPAQUE) 320 MG/ML 100ML IV ONE (15:01)
[2025-08-23] MEDS: HEPARIN (PORCINE) 1000 UNIT/ML 10 ML (CATH LAB USE ONLY) ONE (15:01)
--- NOTE | 2025-08-23 15:22 | Post Anesthesia Assessment ---
Date of Service August 23, 2025 Post Sedation Assessment Vital Signs Temp Pulse Pulse Resp BP BP Pulse Ox 08/23/25 15:15 95 H 18 88/58 L 97 08/23/25 12:48 94 H 18 117/63 96 08/23/25 09:35 08/23/25 07:26 100 H 08/23/25 07:23 98.1 F 89 22 97/64 L 94 08/23/25 06:09 98 H 104/66 95 08/23/25 03:38 98.2 F 101 H 20 111/64 96 08/23/25 00:09 99.3 F 97 H 20 93/63 L 98 08/22/25 21:45 94 H 08/22/25 20:00 08/22/25 19:34 99.0 F 116 H 22 104/67 97 08/22/25 18:31 08/22/25 18:19 98.1 F 119 H 24 110/64 95 08/22/25 17:11 119 H 08/22/25 16:06 118 H 08/22/25 15:30 112 H 32 H 95 08/22/25 15:30 112/74 08/22/25 15:30 112/74 O2 Del Method O2 Flow Rate 08/23/25 15:15 Nasal Cannula 4 08/23/25 12:48 Nasal Cannula 2 08/23/25 09:35 Nasal Cannula 2 08/23/25 07:26 08/23/25 07:23 Nasal Cannula 2 08/23/25 06:09 Nasal Cannula 2 08/23/25 03:38 Nasal Cannula 2 08/23/25 00:09 Nasal Cannula 2 08/22/25 21:45 08/22/25 20:00 Nasal Cannula 2 08/22/25 19:34 Nasal Cannula 2 08/22/25 18:31 Nasal Cannula 2 08/22/25 18:19 Nasal Cannula 2 08/22/25 17:11 08/22/25 16:06 08/22/25 15:30 08/22/25 15:30 08/22/25 15:30 Recovery Score Activity: Moves 4 extremities Respiration: Deep Breath/Cough Circulation: +/-20% PreAnes Value Consciousness: Fully Awake Oxygen Saturation: O2 needed for >90% Post Anesthesia Score: 9 Discharge Sedation Level of Care: Fast Track Phase II
--- NOTE | 2025-08-23 15:31 | Electrocardiogram Report ---
Test Reason : Blood Pressure : */* mmHG Vent. Rate : 94 BPM Atrial Rate : 94 BPM P-R Int : 174 ms QRS Dur : 92 ms QT Int : 382 ms P-R-T Axes : 72 -80 66 degrees QTcB Int : 477 ms Normal sinus rhythm Left axis deviation Septal infarct (cited on or before 22-Aug-2025) Abnormal ECG When compared with ECG of 22-Aug-2025 15:57, Right bundle branch block is no longer Present Questionable change in initial forces of Anteroseptal leads Confirmed by Kevin Forrest ([id number]) on 08/23/2025 3:31:02 PM Referred By: REFERRED SELF Confirmed By: Kevin Forrest
--- NOTE | 2025-08-23 15:54 | Communication Note ---
Date of Service: August 23, 2025 Patient seen post cardiac catheterization results of the study discussed in detail with patient and daughter. Cardiac catheterization demonstrated critical three-vessel coronary disease. Findings included 100% proximal occlusion of the right coronary artery, ostial and distal left main stenoses, and 90% narrowing of the proximal left anterior descending, 90% obtuse marginal and 70% left anterior descending diagonal. Left ventricular end-diastolic pressure elevated at 26 Marginal systolic blood pressures 90-100 Recommended tertiary referral for consideration of surgical revascularization Patient awake conversant and understanding discussion. Patient agreeable to transfer for surgical evaluation and treatment of acute systolic heart failure with reduced ejection fraction, ischemic cardiomyopathy Transfer center contacted
--- NOTE | 2025-08-23 15:56 | Discharge Summary ---
Discharge Summary Date of Service August 23, 2025 Principal Dx & Hospital Course #1 = Principal Diagnosis (1) Beta thalassemia: (2) Hyperlipidemia: (3) PAD (peripheral artery disease): (4) DM II (diabetes mellitus, type II), controlled: (5) Diabetic retinopathy: Plan Ms. 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 Patient underwent LHC on 08/23 revealing severe 3 main vessel disease. Cardiology recommending transfer to tertiary center for surgical eval. On day of discharge, patient is tenuous and will require cardiovascular and hemodynamic monitoring for transfer. Daughter and patient aware of plan for eval. #Acute hypoxic resp failure, likely 2/2 vascular congestion #Acute heart failure with reduced EF, 08/2025 ECHO 30-35% #Ischemic cardiomyopathy #Suspected Pneumonia r/o, likely related to edema rather than infection CXR is concerning for possible pna, cough, elevated WBC 13.94, Lactate 2.8, respiratory panel negative Procal negative, wbc likely iso CLL CT PE with known pathologic LAD iso CLL ECHO reviewed with question of likely ICM - Check sputum culture if able, however, will discontinued -Follow infectious work up but will hold abx for now and monitor Cardiology following: catheterization with severe 3 vessel disease Transfer to [facility] #Elevated troponin, NSTEMI #Bifascicular bundle branch block. #ASCVD, s/p TCAR 03/2025 suspect likely HF exacerbation, less likely infectious etiology of patient's presentation continue brilinta continue metroprolol q6 for now per cardiology Follow up s/p catheterization continue heparin trop currently at 992.9 #Hypomagnesemia - 1.5 on admission, replace with IV mag CTM and trend #CLL #Beta thalassemia (heterozygous) #Chronic Microcytic Anemia - Hgb of 8.1, appear her normal range is micocytic and typically 9-10 range, mo nitor with am labs - Has hx of hepatomegaly, no evidenc of splenomegaly on US abd. - Follow with heme/onc Dr. 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 The significant shortness of breath with ADLs, cough nonproductive started last evening. Her daughter who was present at bedside supports the HPI, reports that she has been intermittently short of breath over the past 5 months. Denies any known history of heart failure. She denies any known sick contacts. She is taking all of her home medications but missed them this morning due to feeling so poorly. She has not yet eaten today. Patient has been afebrile, denies any postnasal drip, runny nose, nausea, vomiting or other changes. She is not compliant with her CPAP at bedtime. States that she has been fatigued and sometimes sleeps between 12 to 15 hours/day and occasionally takes a nap. Her daughter lives in an apartment upstairs from her mother, supports the history. In the ER patient is found to have a WBC of 14K, magnesium 1.5, troponin elevated at 133.6, BNP 1462, lactae 2.4. Her respiratory viral panel is negative. Admission Exam Per Admitting Provider General: awake, alert, no apparent distress, elderly white female, + pallor, + obese abdominally Head: Normocephalic, atraumatic ENT: PERRL, EOMI, no pharyngeal exudate, mucous membranes moist Chest: + Diminished breath sounds in the left base, on room air, O2 sats are 93%, + faint expiratory wheezing bilaterally improved with cough Cardiac: Sinus tachycardia, no murmur, no JVD, normal peripheral pulses, good capillary refill Abdominal: NABS x 4 quadrants, soft, nondistended, nontender to palpation, no rebound or guarding Extremities: Normal inspection, no peripheral edema or erythema, calfs nontender to palpation Psych: Normal mood and affect Neuro: AAO x 3, strength intact bilaterally and rated 5/5, no motor deficits, speech is clear, no peripheral sensory deficits Discharge Exam Constitutional WD/WN, vitals as above Respiratory diminished, 2/2 effort, no crackles or wheezes Cardiovascular RRR, no murmur, no edema Gastrointestinal (Abdomen) normal bowel sounds, soft, nontender, no hepatosplenomegaly Updated Medication List Medication Instructions Recorded Confirmed Type Black Elderberry 575 mg PO DAILY 01/21/22 08/22/25 History albuterol sulfate 90 mcg/actuation 2 puff inhalation QID PRN asthma 01/21/22 08/22/25 History aerosol inhaler alprazolam 0.25 mg tablet 0.25 mg PO DAILY PRN Anxiety 01/21/22 08/22/25 History ascorbic acid (vitamin C) 500 mg 500 mg PO DAILY 01/21/22 08/22/25 History tablet (Vitamin C) atorvastatin 20 mg tablet 40 mg PO QAM 01/21/22 08/22/25 History cholecalciferol (vitamin D3) 25 25 mcg PO DAILY 01/21/22 08/22/25 History mcg (1,000 unit) tablet (Vitamin D3) citalopram 40 mg tablet 40 mg PO DAILY 01/21/22 08/22/25 History coQ10 (ubiquinol) 100 mg capsule 100 mg PO QPM 01/21/22 08/22/25 History cyanocobalamin (vitamin B-12) 250 250 mcg PO QAM 01/21/22 08/22/25 History mcg tablet (Vitamin B-12) dulaglutide 1.5 mg/0.5 mL 1.5 mg subcut WK 01/21/22 08/22/25 History subcutaneous pen injector (Trulicity) folic acid 1 mg tablet 1 mg PO DAILY 01/21/22 08/22/25 History levothyroxine 88 mcg tablet 88 mcg PO DAILYBB 01/21/22 08/22/25 History lutein 20 mg tablet 20 mg PO QAM 01/21/22 08/22/25 History magnesium 250 mg tablet 250 mg PO QAM 01/21/22 08/22/25 History meclizine 25 mg tablet 25 mg PO DAILY PRN Dizziness 01/21/22 08/22/25 History metformin 1,000 mg tablet 1,000 mg PO BID 01/21/22 08/22/25 History diclofenac sodium 1 % topical gel 2 g topical QID PRN Pain 03/20/25 08/22/25 History meloxicam 7.5 mg tablet 7.5 mg PO DAILY 03/20/25 08/22/25 History tafluprost (PF) 0.0015 % eye drops 1 drp ophthalmic (eye) DAILY 03/20/25 08/22/25 History in a dropperette ticagrelor 90 mg tablet (Brilinta) 90 mg PO BID 03/20/25 08/22/25 History metoprolol tartrate 25 mg tablet 12.5 mg (1/2 x 25 mg) PO Q6 #0 tabs 08/23/25 Rx ondansetron HCl (PF) 4 mg/2 mL 4 mg (2 mL) IV Q4H PRN #0 mL 08/23/25 Rx injection solution Hospital Stay Data Consultations 08/22/25 13:40 ED Decision to Admit Stat 08/22/25 16:43 Consult Cardiology Routine Procedures Performed Operation Date: 08/23/25 15:00 Actual Procedures p Cath, Left with Cors and Vent - Ron Leigh MD s Cineradiography w/Routine Exam - Ron Leigh MD Diagnostic Imagining Performed 08/22/25 14:15 CT angio chest PE protocol Stat 08/23/25 08:10 CL Cath Imgs for PACS use only Routine 08/23/25 15:00 CL Cath Imgs for PACS use only Routine Pending Results Patient Have Any Pending Studies at Discharge: No Discharge Instructions Given to Patient (Per Discharging Provider) You were admitted with shortness of breath with concerns for heart disease. You underwent a cardiac catheterization and was found to have severe three vessel disease. You were transferred to [place] to undergo surgical evaluation. #Acute hypoxic resp failure, likely 2/2 vascular congestion #Acute heart failure with reduced EF, 08/2025 ECHO 30-35% #Suspected Pneumonia r/o, likely related to edema rather than infection CXR is concerning for possible pna, cough, elevated WBC 13.94, Lactate 2.8, respiratory panel negative Procal negative, wbc likely iso CLL CT PE with known pathologic LAD iso CLL ECHO reviewed with question of possible ICM iso 3 vessel disease - Check sputum culture if able, however, will discontinued -Follow infectious work up but will hold abx for now and monitor Cardiology following: catheterization with severe 3 vessel disease Transfer to [facility] #Elevated troponin, NSTEMI #Bifascicular bundle branch block. #ASCVD, s/p TCAR 03/2025 suspect likely HF exacerbation, less likely infectious etiology of patient's presentation continue brilinta continue metroprolol q6 for now per cardiology Follow up s/p catheterization continue heparin trop currently at 992.9 #Hypomagnesemia - 1.5 on admission, replace with IV mag CTM and trend #CLL #Beta thalassemia (heterozygous) #Chronic Microcytic Anemia - Hgb of 8.1, appear her normal range is micocytic and typically 9-10 range, monitor with am labs - Has hx of hepatomegaly, no evidenc of splenomegaly on US abd. - Follow with heme/onc Dr. Plata as outpatient trend CBC #Dm II #Diabetic retinopathy #Glaucoma - ISS with accuchecks achs - A1C with am labs, last was 5.3 on 09/12/24 in [facility] Other chronic medical issues: ERICA on cpap - noncompliant with cpap HS - encourage upon discharge Hypothyroidism Depression/Fibromyalgia Total Time Total Time Spent Total Time Spent (In Minutes): 55 By CMS guidelines, a determination that the admission or continued stay is not medically necessary has been made by a member of the UR committee and a physician for this hospital stay, therefore a Code 44 will be completed and the Inpatient admission will be changed to outpatient.
--- NOTE | 2025-08-23 16:00 | Communication Note ---
By CMS guidelines, a determination that the admission or continued stay is not medically necessary has been made by a member of the UR committee and a physician for this hospital stay, therefore a Code 44 will be completed and the Inpatient admission will be changed to outpatient. Date of Service: August 23, 2025
[2025-08-23 16:06] VITALS: TEMP 97.5
[2025-08-23 16:12] VITALS: RESP 17; O2SAT 94
--- NOTE | 2025-08-23 17:01 | Cardiac Catheterization ---
[facility] Data: Child Welfare Assistant Cardiac Status Clinical evaluation leading to the procedure CAD Presenation: Non STEMI Anginal Classification: CCS IV Diagnostic Physicians Name: Ron Leigh MD Closure Device Recommendations: CABG Cardiac Cath Procedure Full Procedure Date August 23, 2025 Pre-Procedure Diagnosis Pre-Procedure Diagnosis: Non STEMI and Cardiomyopathy AUC Score AUC Score: 7 Post-Procedure Diagnosis Post-Procedure Diagnosis: Severe CAD and Elevated Intracardiac Pressures Procedure(s) Performed Procedure(s) Performed: Coronary Angiography and Left Heart Cath Wallpaperer Helper Ron Leigh MD Sewer Connector(s) Judit Estimated Blood Loss Estimated Blood Loss: 10 Medication(s) Medication(s): Fentanyl, Heparin, Lidocaine 1%, Nicardipine, Nitroglycerin and Versed Summary of Findings Indication: NSTEMI, new LV dysfunction Access: 6 Fr slender right radial artery Catheters: [place] Findings: LM -calcified, normal caliber, calcified nodule with 50-60% stenosis in distal left main at bifurcation LAD -80% proximal stenosis, 50% mid stenosis after takeoff of small diagonal. Distal vessel without significant disease of wraps around apex. D1 40% proximal, 80 % mid stenosis Circumflex -medium caliber, calcified, 80-90% ostial stenosis. Mid/distal vessel without significant disease. High OM1 with 90% ostial stenosis. OM 2 without significant disease. RCA -dominant, calcified, 100% ostial occlusion. Mid segment partially fills via left to left collaterals. Distal vessel fills retrograde via [id number] collaterals. LVEDP -26 Arterial Closure: TR band Summary: 1. Severe multivessel coronary artery disease - 50-60% distal left main 80% proximal LAD. D1 80% mid stenosis 80-90% ostial circumflex. Small high OM1 with 90% ostial stenosis. 100% ostial RCA occlusion. Left to right and right to right collaterals. 2. Elevated intracardiac filling pressure Recommendations: Referral to tertiary center for consideration of CABG Continue diuresis and GDMT per Dr. Matson Hemodynamics Rest Ao:: 93/47/71 Final Ao: 100/49/72 LV: 101/26 Recommendations Recommendations: CABG Radiation Exposure (mGy) 979 Contrast (mls) 40 Anesthesia Moderate [id number] Procedural Complication(s) None Disposition PCU I attest to the content of the Intraoperative Record and any orders documented therein. Any exceptions are noted below. [facility] Card Cath Procedure Codes Cardiac Catheterization Procedure 1: Cardiovascular Cath Procedures: 07059 Coronaries and LHC (+/-LV) Moderate Sedation Procedure 1: Sedation/Anesthesia: 41550 Mod Sedation by the same physician;Init15 Min Child Age 5 & Up PG Care Time/CCT Total # of Minutes Spent Total Time Spent with Patient: Total time spent is greater than 50% in coordination of care (as documented) at patient's floor/unit and/or counseling patient:
[2025-08-23] MEDS: Heparin IV Adult Wt-Based Low-Dose *NO* INITIAL Bolus Protocol IV STA (17:06)
[2025-08-23] MEDS: OXYMETAZOLINE 0.05% 30 ML BTL NAE ONE (17:06)
[2025-08-23] MEDS: HEPARIN 25000 UNIT/500 ML D5W 25,000 UNITS/500 ML BAG IV SCH (17:09)
[2025-08-23 18:06] VITALS: BP 112/68; PULSE 80
[2025-08-24 08:53] LABS: Hypochromasia Present; Microcytosis Present
--- NOTE | 2025-08-24 12:30 | Electrocardiogram Report ---
Test Reason : Blood Pressure : */* mmHG Vent. Rate : 111 BPM Atrial Rate : 111 BPM P-R Int : 154 ms QRS Dur : 138 ms QT Int : 364 ms P-R-T Axes : 84 268 75 degrees QTcB Int : 495 ms Sinus tachycardia Right bundle branch block Abnormal ECG When compared with ECG of 22-Aug-2025 15:57, Criteria for Anterior infarct are no longer Present Confirmed by Kevin Forrest ([id number]) on 08/24/2025 12:30:12 PM Referred By: REFERRED SELF Confirmed By: Kevin Forrest
== END 2025-08-23 18:11 | disposition short-term general hospital (02) | DRG 193 ==
LOC: ED 11:42 → SUATTDRO 13:49 → 2N 13:49 → INTOOBSV 13:49 → OBSVTOIN 13:49 → 2N 16:47 → 2S 08-23 14:43

== ENCOUNTER 2025-09-03 14:12 | Inpatient (IN) ==
[2025-09-03 16:26] LABS: Hematocrit (blood only) 25.0 % (37.0-47.0); Hemoglobin 7.5 g/dL (12.0-16.0); Mean Corpuscular Hemoglobin 21.3 pg (25.0-34.0); Mean Corpuscular Volume 71.0 fL (80.0-100.0); Platelet Count 289 K/uL (130-400); RDW Standard Deviation 46.1 fL (36.4-46.3); Red Blood Count 3.52 M/uL (4.20-5.40); White Blood Count 10.18 K/ul (4.8-10.8)
[2025-09-03 16:44] LABS: Alanine Aminotransferase 9 U/L (7-52); Albumin Globulin Ratio 2.1 (0.9-2); Albumin Level 4.0 gm/dl (3.4-5.0); Alkaline Phosphatase 62 U/L (34-104); Anion Gap 6 (3-11); Bilirubin,Total 0.5 mg/dl (0.2-1.0); Blood Urea Nitrogen 28 mg/dl (6-23); Calcium 8.8 mg/dl (8.6-10.3); Carbon Dioxide 23 mmol/L (21-32); Chloride 102 mmol/L (98-107); Globulin 1.9 gm/dl (2.5-4.0); Glucose 154 mg/dl (70-99(Fasting)); Potassium 4.3 mmol/L (3.5-5.1); Sodium 131 mmol/L (136-145); Total Protein 5.9 gm/dl (6.0-8.3)
[2025-09-03 16:52] LABS: INR 1.0 (0.9-1.1); Partial Thromboplastin Time 23 Seconds (21-31); Prothrombin Time 10.8 Seconds (9.0-12.0)
[2025-09-03 17:09] LABS: Basophilic Stippling 1+; Immature Granulocytes # (auto) 0.06 K/uL (0.01-0.20); Immature Granulocytes % (auto) 0.6 %; Polychromasia 1+; Schistocytes 1+; Tear Drop Cells 1+
--- NOTE | 2025-09-03 17:54 | XRay Report ---
EXAM: Portable AP chest radiograph TECHNIQUE: AP portable radiograph of the chest was obtained. INDICATION: Chest pain Comparison: Thoracic CT August 22, 2025 FINDINGS: LINES and TUBES: None CARDIOVASCULAR: Cardiac silhouette is stably enlarged in size. Atherosclerosis of the thoracic aorta. LUNGS/PLEURA: No focal consolidation identified. Mild interstitial pulmonary edema and small pleural fluids appear similar to the previous CT. No discernible pneumothorax. OSSEOUS/OTHER: No displaced acute osseous process identified. Chronic left-sided rib deformities. Thoracic lymphadenopathy was better delineated in the recent thoracic CT dated August 22, 2025 IMPRESSION: Similar congestive changes of the cardiovascular system compared to the CT examination dated August 22, 2025. Thoracic lymphadenopathy was better delineated in the recent thoracic CT dated August 22, 2025 Electronically signed by Adarsh Arnold 09-03-2025 5:53 PM
[2025-09-03] MEDS: FUROSEMIDE 40 MG/4 ML VIAL IV ONE (18:17)
--- NOTE | 2025-09-03 19:21 | Emergency Department Note ---
Impression & Plan CHF (congestive heart failure), Volume overload, Pulmonary edema, Elevated brain natriuretic peptide (BNP) level, Elevated troponin ED Provider Note NAME: ALEX FARLEY AGE: 79 SEX: F : 1945 ARRIVES VIA: Walk-In INFORMANT: Patient, ED PROVIDER(S): Lindsey Starr MD CHIEF COMPLAINT: Bilateral lower extremity swelling HPI: This is a 79-year-old female seen for bilateral lower extremity swelling. Patient was recently in the hospital and a cardiac stents placed. She has been discharged, she has gained about 20 pounds. She was seen by her primary care doctor today and advised to come to the ER for further evaluation. She reports difficulty with ambulating. She reports no chest pain with this. She reports a new cough. She denies any pleurisy. Reports no fevers, chills. ROS: See above HPI for pertinent positives & negatives. A total of 10 systems reviewed and were otherwise negative. PAST MEDICAL HISTORY: See Below PAST SURGICAL HISTORY: See Below FAMILY HISTORY: See Below SOCIAL HISTORY: See Below HOME MEDICATIONS: See Below ALLERGIES: See Below VITALS: See Below PHYSICAL EXAMINATION: General: resting comfortably in no acute distress Head: Normocephalic and atraumatic Eyes: Normal inspection, extraocular muscles intact Ear, nose, throat: Normal external exam Neck: Normal range of motion Respiratory: Crackles at bases Cardiovascular: Regular rate/rhythm, no murmur GI: soft, nontender, no guarding or rebound Extremities: nontender, moves all extremities Neuro: The patient awake and alert, appropriately conversive, no focal deficits, symmetric faces Skin: Warm, dry, and intact, 2+ pitting edema to bilateral extremities MEDICAL DECISION MAKING: This is a 79-year-old female presents for bilateral extremity swelling. Patient is very fluid overloaded on exam with 2+ pitting edema. She has significant weight gain as per daughter. She is sent by primary care for this. - Stable anemia 7.5 is noted. BNP significant elevated over 1999. Troponin elevated at 147.5 troponin up trended to 167.5. - Chest x-ray is read as similar congestive changes to August 22 - Based on patient's increasing fluid status, significant weight gain, elevated troponin, will admit to the hospital. -Patient given 40 mg of IV Lasix here - Patient and daughter comfortable with this plan Differential diagnosis: CHF, PE, pneumonia, pneumothorax, ACS Independent History obtained from: Daughter Diagnostics interpreted by me: ECG: ECG independently interpreted by me with sinus rhythm, 84, left axis deviation, inferior/lateral T wave inversions, normal QTc, no ST segment elevations consistent with STEMI criteria Cardiac Monitoring: An order was placed for continuous cardiac monitoring. The monitor shows a rate of 97 with sinus rhythm. Past Med/Surg History Problem List (Updated 09/03/25 @ 23:43 by Lindsey Starr MD) SOB (shortness of breath) Bifascicular bundle branch block Cardiomyopathy CAP (community acquired pneumonia) Elevated troponin (Acute) Elevated brain natriuretic peptide (BNP) level (Acute) Elevated lactic acid level (Acute) Hypomagnesemia (Acute) Pulmonary edema (Acute) CHF (congestive heart failure) (Acute) Pneumonia (Acute) Volume overload (Acute) DM II (diabetes mellitus, type II), controlled Carotid stenosis Abrasion of arm, left (Acute) Hx of colonic polyps Medical History Vertigo Per vascular records x years PAD (peripheral artery disease) 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 per vascular records Hx of fall (12/13/24) went to [facility] [place]- stitches in forehead- had blood transfusion fall vs syncope per records Glaucoma Carotid artery disease >70% stenosis to right ICA No significant stenosis noted to left ICD per 11/2024 carotid duplex Fibromyalgia Diabetic retinopathy PTSD (post-traumatic stress disorder) Beta thalassemia Stable- follows with heme/onc per PCP records (baseline Hgb 9-9.5; on no treatment per records) Hyperlipidemia Chronic lymphocytic leukemia Follows with [facility] heme/onc per PCP records Hypertension Anxiety Sleep apnea not using cpap- states she needs to be retested Surgical History Hx of colonoscopy with polypectomy History of esophagogastroduodenoscopy (EGD) History of eye surgery History of numerous eye injections, laser surgery, trabeculoplasty per records Family History Other Family history non-contributory Social History Smoking Status: Former smoker Tobacco Type: Cigarettes Second Hand Exposure: No; Do You Dip or Chew Tobacco: No; Hx Alcohol Use: No Hx Substance Use: No Preferred Language: Romanian Communication Ability: Effective Rod And Tube Straightener Required: No Beliefs That Will Affect Care: None Current Living Situation: Alone Feels Safe at Home: Yes Assistive Devices: Cane, Denture - Upper, Denture - Lower, Glasses and Hearing Aid - Bilateral Allergies Allergies Allergy/AdvReac Type Severity Reaction Status Date / Time dorzolamide Allergy Severe Blurry Unverified 09/03/25 19:39 Vision Home Meds Home Medications Medication Instructions Recorded Confirmed Black Elderberry 575 mg PO QPM 01/21/22 09/03/25 albuterol sulfate 90 mcg/actuation 2 puff inhalation QID PRN asthma 01/21/22 09/03/25 aerosol inhaler alprazolam 0.25 mg tablet 0.25 mg PO DAILY PRN Anxiety 01/21/22 09/03/25 ascorbic acid (vitamin C) 500 mg 500 mg PO QPM 01/21/22 09/03/25 tablet (Vitamin C) cholecalciferol (vitamin D3) 25 25 mcg PO QPM 01/21/22 09/03/25 mcg (1,000 unit) tablet (Vitamin D3) coQ10 (ubiquinol) 100 mg capsule 100 mg PO QPM 01/21/22 09/03/25 cyanocobalamin (vitamin B-12) 250 250 mcg PO QAM 01/21/22 09/03/25 mcg tablet (Vitamin B-12) dulaglutide 1.5 mg/0.5 mL 1.5 mg subcut WK 01/21/22 09/03/25 subcutaneous pen injector (Trulicity) folic acid 1 mg tablet 1 mg PO DAILY 01/21/22 09/03/25 levothyroxine 88 mcg tablet 88 mcg PO DAILYBB 01/21/22 09/03/25 lutein 20 mg tablet 20 mg PO QAM 01/21/22 09/03/25 magnesium 250 mg tablet 250 mg PO QAM 01/21/22 09/03/25 meclizine 25 mg tablet 25 mg PO DAILY PRN Dizziness 01/21/22 09/03/25 metformin 1,000 mg tablet 1,000 mg PO BID 01/21/22 09/03/25 tafluprost (PF) 0.0015 % eye drops 1 drp ophthalmic (eye) HS 03/20/25 09/03/25 in a dropperette ticagrelor 90 mg tablet (Brilinta) 90 mg PO BID 03/20/25 09/03/25 aspirin 81 mg tablet,delayed 81 mg PO DAILY 09/03/25 09/03/25 release atorvastatin 40 mg tablet 40 mg PO QAM 09/03/25 09/03/25 citalopram 20 mg tablet 20 mg PO DAILY 09/03/25 09/03/25 fluticasone propionate 50 2 spray intranasal HS 09/03/25 09/03/25 mcg/actuation nasal spray,suspension metoprolol succinate 50 mg 50 mg PO DAILY 09/03/25 09/03/25 tablet,extended release 24 hr nitroglycerin 0.4 mg sublingual 0.4 mg sublingual DIRECTED PRN 09/03/25 09/03/25 tablet Chest Pain Results & Data (ED) Vital Signs Vital Signs - 24 hr 09/03/25 14:44 09/03/25 17:03 09/03/25 17:03 Temperature 36.5 C Temperature Source Temporal Artery Scan Pulse Rate 81 Pulse Rate [Apical] 82 Pulse Rhythm [Apical] Regular Pulse Strength [Apical] Normal Respiratory Rate 18 25 H Respiratory Effort / Characteristics Non-Labored Spontaneous Respiratory Depth Normal Normal Respiratory Pattern Regular Blood Pressure 100/57 L Blood Pressure [Right Arm] 111/58 L Blood Pressure Mean 71 Blood Pressure Mean [Right Arm] 75 Blood Pressure Position [Right Arm] Pulse Oximetry 98 97 96 Oxygen Delivery Method Room Air Room Air Room Air Sepsis Recent Fever Within 48 Hours No Sepsis New/Unexplained Change in Mental Status N/A Sepsis Action Taken by Nursing No Action Required 09/03/25 17:03 09/03/25 18:10 09/03/25 18:15 Temperature Temperature Source Pulse Rate 84 82 Pulse Rate [Apical] 82 Pulse Rhythm [Apical] Pulse Strength [Apical] Respiratory Rate 25 H 28 H Respiratory Effort / Characteristics Spontaneous Respiratory Depth Respiratory Pattern Blood Pressure Blood Pressure [Right Arm] 108/53 L Blood Pressure Mean Blood Pressure Mean [Right Arm] 71 Blood Pressure Position [Right Arm] Sitting Pulse Oximetry 96 96 Oxygen Delivery Method Room Air Room Air Sepsis Recent Fever Within 48 Hours Sepsis New/Unexplained Change in Mental Status Sepsis Action Taken by Nursing 09/03/25 18:16 09/03/25 18:56 Temperature Temperature Source Pulse Rate Pulse Rate [Apical] 84 Pulse Rhythm [Apical] Regular Pulse Strength [Apical] Normal Respiratory Rate 31 H Respiratory Effort / Characteristics Spontaneous Respiratory Depth Respiratory Pattern Blood Pressure Blood Pressure [Right Arm] 115/53 L 119/58 L Blood Pressure Mean Blood Pressure Mean [Right Arm] 73 78 Blood Pressure Position [Right Arm] Sitting Sitting Pulse Oximetry 100 Oxygen Delivery Method Room Air Sepsis Recent Fever Within 48 Hours Sepsis New/Unexplained Change in Mental Status Sepsis Action Taken by Nursing Laboratory Data 09/03/25 16:09 09/03/25 16:09 Lab Results 09/03/25 09/03/25 Range/Units 16:09 18:00 WBC 10.18 (4.8-10.8) K/ul RBC 3.52 L (4.20-5.40) M/uL Hgb 7.5 L (12.0-16.0) g/dL Hct 25.0 L (37.0-47.0) % MCV 71.0 L (80.0-100.0) fL MCH 21.3 L (25.0-34.0) pg MCHC 30.0 L (32.0-36.0) g/dL RDW Std Deviation 46.1 (36.4-46.3) fL RDW Coeff of Tim 18.6 H (11.5-14.5) % Plt Count 289 (130-400) K/uL MPV 9.8 (9.4-12.4) fL Immature Gran % (Auto) 0.6 % Neut % (Auto) 37.9 % Lymph % (Auto) 51.6 % [place] % (Auto) 8.2 % Eos % (Auto) 1.3 % Baso % (Auto) 0.4 % Neut # (Auto) 3.87 (1.40-6.50) K/uL Lymph # (Auto) 5.25 H (1.20-3.40) K/uL [place] # (Auto) 0.83 H (0.11-0.59) K/uL Eos # (Auto) 0.13 (0.00-0.50) K/uL Baso # (Auto) 0.04 (0.00-0.20) K/uL Immature Gran # (Auto) 0.06 (0.01-0.20) K/uL Polychromasia 1+ Basophilic Stippling 1+ Tear Drop Cells 1+ Schistocytes 1+ PT 10.8 (9.0-12.0) Seconds INR 1.0 (0.9-1.1) APTT 23 (21-31) Seconds PTT Ratio 0.8 Sodium 131 L (136-145) mmol/L Potassium 4.3 (3.5-5.1) mmol/L Chloride 102 (98-107) mmol/L Carbon Dioxide 23 (21-32) mmol/L Anion Gap 6 (3-11) BUN 28 H (6-23) mg/dl Creatinine 0.99 (0.6-1.2) mg/dl Est Cr Clr Drug Dosing Not Reportable eGFR 58.73 BUN/Creatinine Ratio 28.3 H (10-20) Glucose 154 H (70-99(Fasting)) mg/dl Calcium 8.8 (8.6-10.3) mg/dl Magnesium 2.2 (1.7-2.4) mg/dl Total Bilirubin 0.5 (0.2-1.0) mg/dl AST 13 (13-39) U/L ALT 9 (7-52) U/L Alkaline Phosphatase 62 (34-104) U/L Troponin I High Sens 147.5 H* 167.7 H* (0-14) pg/ml B-Natriuretic Peptide 2334 H (0-100) pg/ml Total Protein 5.9 L (6.0-8.3) gm/dl Albumin 4.0 (3.4-5.0) gm/dl Globulin 1.9 L (2.5-4.0) gm/dl Albumin/Globulin Ratio 2.1 H (0.9-2) Administered Medications Benzonatate (Benzonatate 100 Mg Capsule) 100 mg PO TID PRN PRN Reason: Cough Stop: 10/03/25 21:08 Last Admin: 09/03/25 22:18 Dose: 100 mg Documented By: TASAH Ticagrelor (Ticagrelor 90 Mg Tab) 90 mg PO BID LITZY Stop: 10/03/25 21:14 Last Admin: 09/03/25 22:15 Dose: 90 mg Documented By: TASHA Discontinued Medications Albuterol (Albut/Ipratrop 3mg/0.5mg Neb 3 Ml Vial) 3 ml NEB NOW STA; Protocol Stop: 09/03/25 19:22 Last Admin: 09/03/25 19:53 Dose: 3 ml Documented By: TASHA Furosemide (Furosemide 40 Mg/4 Ml Vial) 40 mg IV ONE ONE Stop: 09/03/25 18:08 Last Admin: 09/03/25 18:17 Dose: 40 mg Documented By: [facility] [facility] [place] Radiologist's Impression: Chest X-Ray 09/03/25 14:48 EXAM: Portable AP chest radiograph TECHNIQUE: AP portable radiograph of the chest was obtained. INDICATION: Chest pain Comparison: Thoracic CT August 22, 2025 FINDINGS: LINES and TUBES: None CARDIOVASCULAR: Cardiac silhouette is stably enlarged in size. Atherosclerosis of the thoracic aorta. LUNGS/PLEURA: No focal consolidation identified. Mild interstitial pulmonary edema and small pleural fluids appear similar to the previous CT. No discernible pneumothorax. OSSEOUS/OTHER: No displaced acute osseous process identified. Chronic left-sided rib deformities. Thoracic lymphadenopathy was better delineated in the recent thoracic CT dated August 22, 2025 IMPRESSION: Similar congestive changes of the cardiovascular system compared to the CT examination dated August 22, 2025. Thoracic lymphadenopathy was better delineated in the recent thoracic CT dated August 22, 2025 Electronically signed by Adarsh Arnold 09-03-2025 5:53 PM Discharge Plan Visit Data Chief Complaint: Swelling/Edema to Extremity Stated Complaint: SWELLING/LEGS, LOWER ABDOMINAL ED Provider: Lindsey Starr Discharge Problem: CHF (congestive heart failure), Volume overload, Pulmonary edema, Elevated brain natriuretic peptide (BNP) level, Elevated troponin Patient Disposition: Admitted As Inpatient Condition: Fair Discharge Instructions Interventions: ED Discharge Assessment Last Done: 09/03/25 22:35 Discharge Problem: CHF (congestive heart failure) Qualifiers: Heart failure type: other Qualified Code(s): I50.9 - Heart failure, unspecified Volume overload Qualifiers: Hypervolemia type: other Qualified Code(s): E87.79 - Other fluid overload Pulmonary edema Qualifiers: Chronicity: acute Qualified Code(s): J81.0 - Acute pulmonary edema
--- NOTE | 2025-09-03 19:32 | History & Physical Report ---
Date of Service September 03, 2025 Assessment & Plan (1) SOB (shortness of breath): Plan: Assessment and plan below following discussion of case with ED provider and reviewing patient history/pertinent normal/abnormal diagnostic test results. SOB Multifactorial Decompensated heart failure, history ischemic cardiomyopathy, history of CAD status post recent stent Symptomatic anemia, patient denies overt blood loss Troponin elevation secondary to CHF LE swelling secondary to CHF rule out DVT hx PVD hypertension, stable hyperlipidemia, on statin Rx ERICA on CPAP DM2 on oral medications, well-controlled as of recent hemoglobin A1c of 5.7 this month hypothyroidism, euthyroid as of recent TSH CLL, patient follows with [facility] specialist past tobacco abuse Admit to PCU Diuretic Rx Strict I/Os, daily weights, CHF education, fluid restriction TTE, Cardiology consult re: CHF, recent PCI Follow troponin LE venous Dopplers rule out DVT Transfuse PRBC to maintain hemoglobin of at least 8 ISS BG goal 110-140, carb count coverage DVT prophylaxis per Lovenox subcu Full code Patient daughter requesting updates providers. Omega Debra Miles, contact #[phone]. Text document was generated using [employer] voice recognition software. It may contain grammatical or spelling errors. Kindly contact undersigned for clarification of any documentation item in question. History of Present Illness Chief Complaint: Shortness of breath, weight gain Primary Care Provider: Dr. Randolph Sequeira History obtained from patient, family, and records. Medical history significant for chronic systolic heart failure (EF 30 to 35%, TTE 2024), CAD status post recent stent, PVD status post surgery, hypertension, hyperlipidemia, ERICA on CPAP, DM2 on oral medications, hypothyroidism, CLL, thalassemia, chronic anemia (baseline hemoglobin 7-8), PTSD/mood disorder, fibromyalgia, compression fractures. Past tobacco abuse. Recent [facility] confinement August 22 to 2024 for NSTEMI, CHF. Multivessel CAD on diagnostic cardiac catheterization. Cardiology recommended [facility] transfer. Patient subsequently confined to [facility] from August 23 to 2024. High risk PCI done due to high operative risk for coronary surgery. 3 overlapping YASMINE deployed to LM 8 to LAD and POBA to ostial circumflex. Patient woke up this morning with bilateral leg swelling. Patient more short of breath than usual. Denies chest pain. Chronic dry cough symptoms, denies aspiration. Weight gain of about 20 pounds in 10 days as per patient. Patient compliant with home medications and CPAP. Denies OTC NSAID intake. Patient directed to ER for evaluation. IV Lasix administered at the ER. Medical History as above Surgical History : Carotid artery stent, cataract surgery, laser trabeculoplasty, tonsillectomy Family History : Alcoholism, thalassemia, cervical cancer, brain aneurysm, demen tia, stroke, heart disease, thyroid problem Personal/Social history : Past tobacco abuse, rare EtOH intake, retired [employer] employee Allergies Allergy/AdvReac Type Severity Reaction Status Date / Time dorzolamide Allergy Severe Blurry Unverified 09/03/25 19:39 Vision Home Medications Medication Instructions Recorded Confirmed Type Black Elderberry 575 mg PO QPM 01/21/22 09/03/25 History albuterol sulfate 90 mcg/actuation 2 puff inhalation QID PRN asthma 01/21/22 09/03/25 History aerosol inhaler alprazolam 0.25 mg tablet 0.25 mg PO DAILY PRN Anxiety 01/21/22 09/03/25 History ascorbic acid (vitamin C) 500 mg 500 mg PO QPM 01/21/22 09/03/25 History tablet (Vitamin C) cholecalciferol (vitamin D3) 25 25 mcg PO QPM 01/21/22 09/03/25 History mcg (1,000 unit) tablet (Vitamin D3) coQ10 (ubiquinol) 100 mg capsule 100 mg PO QPM 01/21/22 09/03/25 History cyanocobalamin (vitamin B-12) 250 250 mcg PO QAM 01/21/22 09/03/25 History mcg tablet (Vitamin B-12) dulaglutide 1.5 mg/0.5 mL 1.5 mg subcut WK 01/21/22 09/03/25 History subcutaneous pen injector (Trulicity) folic acid 1 mg tablet 1 mg PO DAILY 01/21/22 09/03/25 History levothyroxine 88 mcg tablet 88 mcg PO DAILYBB 01/21/22 09/03/25 History lutein 20 mg tablet 20 mg PO QAM 01/21/22 09/03/25 History magnesium 250 mg tablet 250 mg PO QAM 01/21/22 09/03/25 History meclizine 25 mg tablet 25 mg PO DAILY PRN Dizziness 01/21/22 09/03/25 History metformin 1,000 mg tablet 1,000 mg PO BID 01/21/22 09/03/25 History tafluprost (PF) 0.0015 % eye drops 1 drp ophthalmic (eye) HS 03/20/25 09/03/25 History in a dropperette ticagrelor 90 mg tablet (Brilinta) 90 mg PO BID 03/20/25 09/03/25 History aspirin 81 mg tablet,delayed 81 mg PO DAILY 09/03/25 09/03/25 History release atorvastatin 40 mg tablet 40 mg PO QAM 09/03/25 09/03/25 History citalopram 20 mg tablet 20 mg PO DAILY 09/03/25 09/03/25 History fluticasone propionate 50 2 spray intranasal HS 09/03/25 09/03/25 History mcg/actuation nasal spray,suspension metoprolol succinate 50 mg 50 mg PO DAILY 09/03/25 09/03/25 History tablet,extended release 24 hr nitroglycerin 0.4 mg sublingual 0.4 mg sublingual DIRECTED PRN 09/03/25 History tablet Chest Pain Past Med/Surg History Problem List (Updated 09/03/25 @ 22:50 by Jose Cruz Olivas MD) SOB (shortness of breath) Bifascicular bundle branch block Cardiomyopathy CAP (community acquired pneumonia) Elevated troponin (Acute) Elevated brain natriuretic peptide (BNP) level (Acute) Elevated lactic acid level (Acute) Hypomagnesemia (Acute) Pulmonary edema (Acute) CHF (congestive heart failure) (Acute) Pneumonia (Acute) Volume overload DM II (diabetes mellitus, type II), controlled Carotid stenosis Abrasion of arm, left (Acute) Hx of colonic polyps Medical History Vertigo Per vascular records x years PAD (peripheral artery disease) 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 per vascular records Hx of fall (12/13/24) went to [facility]- stitches in forehead- had blood transfusion fall vs syncope per records Glaucoma Carotid artery disease >70% stenosis to right ICA No significant stenosis noted to left ICD per 11/2024 carotid duplex Fibromyalgia Diabetic retinopathy PTSD (post-traumatic stress disorder) Beta thalassemia Stable- follows with heme/onc per PCP records (baseline Hgb 9-9.5; on no treatment per records) Hyperlipidemia Chronic lymphocytic leukemia Follows with [facility] heme/onc per PCP records Hypertension Anxiety Sleep apnea not using cpap- states she needs to be retested Surgical History Hx of colonoscopy with polypectomy History of esophagogastroduodenoscopy (EGD) History of eye surgery History of numerous eye injections, laser surgery, trabeculoplasty per records Family History Other Family history non-contributory Social History Smoking Status: Former smoker Tobacco Type: Cigarettes Second Hand Exposure: No; Do You Dip or Chew Tobacco: No; Hx Alcohol Use: No Hx Substance Use: No Preferred Language: Amharic Communication Ability: Effective Geochemical Manager Required: No Beliefs That Will Affect Care: None Current Living Situation: Alone Feels Safe at Home: Yes Assistive Devices: Cane, Denture - Upper, Denture - Lower, Glasses and Hearing Aid - Bilateral Review of Systems Review of Systems: As per HPI, all other systems reviewed and negative Physical Exam Physical Exam: GENERAL: Comfortable, pleasant, obese, occasional coughing, no respiratory dis tress SKIN: Pallor,, warm HEENT: Wearing sunglasses, dry buccal mucosa NECK : Supple, no tenderness CHEST : Decreased breath sounds, no tenderness HEART : RRR, no obvious murmurs ABDOMEN: Some distention, nontender EXTREMITIES : Bilateral LE swelling without tenderness, palpable pulses, no other conspicuous deformities noted NEUROLOGIC : Coherent, no facial asymmetry, no other gross focality Results & Data Results & Data Vital Signs (Past 12 Hours) Vital Signs Temp Pulse Pulse Resp BP BP Pulse Ox 09/03/25 18:56 84 31 H 119/58 L 100 09/03/25 18:16 115/53 L 09/03/25 18:15 82 28 H 108/53 L 96 09/03/25 18:10 82 09/03/25 17:03 84 25 H 96 09/03/25 17:03 96 09/03/25 17:03 82 25 H 111/58 L 97 09/03/25 14:44 36.5 C 81 18 100/57 L 98 O2 Del Method 09/03/25 18:56 Room Air 09/03/25 18:16 09/03/25 18:15 Room Air 09/03/25 18:10 09/03/25 17:03 Room Air 09/03/25 17:03 Room Air 09/03/25 17:03 Room Air 09/03/25 14:44 Room Air Laboratory Results Laboratory Results WBC 10.18 K/ul (4.8-10.8) 09/03/25 16:09 RBC 3.52 M/uL (4.20-5.40) L 09/03/25 16:09 Hgb 7.5 g/dL (12.0-16.0) L 09/03/25 16:09 Hct 25.0 % (37.0-47.0) L 09/03/25 16:09 MCV 71.0 fL (80.0-100.0) L 09/03/25 16:09 MCH 21.3 pg (25.0-34.0) L 09/03/25 16:09 MCHC 30.0 g/dL (32.0-36.0) L 09/03/25 16:09 RDW Std Deviation 46.1 fL (36.4-46.3) 09/03/25 16:09 RDW Coeff of Tim 18.6 % (11.5-14.5) H 09/03/25 16:09 Plt Count 289 K/uL (130-400) 09/03/25 16:09 MPV 9.8 fL (9.4-12.4) 09/03/25 16:09 Immature Gran % (Auto) 0.6 % 09/03/25 16:09 Neut % (Auto) 37.9 % 09/03/25 16:09 Lymph % (Auto) 51.6 % 09/03/25 16:09 [place] % (Auto) 8.2 % 09/03/25 16:09 Eos % (Auto) 1.3 % 09/03/25 16:09 Baso % (Auto) 0.4 % 09/03/25 16:09 Neut # (Auto) 3.87 K/uL (1.40-6.50) 09/03/25 16:09 Lymph # (Auto) 5.25 K/uL (1.20-3.40) H 09/03/25 16:09 [place] # (Auto) 0.83 K/uL (0.11-0.59) H 09/03/25 16:09 Eos # (Auto) 0.13 K/uL (0.00-0.50) 09/03/25 16:09 Baso # (Auto) 0.04 K/uL (0.00-0.20) 09/03/25 16:09 Immature Gran # (Auto) 0.06 K/uL (0.01-0.20) 09/03/25 16:09 Polychromasia 1+ 09/03/25 16:09 Basophilic Stippling 1+ 09/03/25 16:09 Tear Drop Cells 1+ 09/03/25 16:09 Schistocytes 1+ 09/03/25 16:09 PT 10.8 Seconds (9.0-12.0) 09/03/25 16:09 INR 1.0 (0.9-1.1) 09/03/25 16:09 APTT 23 Seconds (21-31) 09/03/25 16:09 PTT Ratio 0.8 09/03/25 16:09 Sodium 131 mmol/L (136-145) L 09/03/25 16:09 Potassium 4.3 mmol/L (3.5-5.1) 09/03/25 16:09 Chloride 102 mmol/L (98-107) 09/03/25 16:09 Carbon Dioxide 23 mmol/L (21-32) 09/03/25 16:09 Anion Gap 6 (3-11) 09/03/25 16:09 BUN 28 mg/dl (6-23) H 09/03/25 16:09 Creatinine 0.99 mg/dl (0.6-1.2) 09/03/25 16:09 Est Cr Clr Drug Dosing Not Reportable 09/03/25 16:09 eGFR 58.73 09/03/25 16:09 BUN/Creatinine Ratio 28.3 (10-20) H 09/03/25 16:09 Glucose 154 mg/dl (70-99(Fasting)) H 09/03/25 16:09 Calcium 8.8 mg/dl (8.6-10.3) 09/03/25 16:09 Total Bilirubin 0.5 mg/dl (0.2-1.0) 09/03/25 16:09 AST 13 U/L (13-39) 09/03/25 16:09 ALT 9 U/L (7-52) 09/03/25 16:09 Alkaline Phosphatase 62 U/L (34-104) 09/03/25 16:09 Troponin I High Sens 167.7 pg/ml (0-14) H* 09/03/25 18:00 B-Natriuretic Peptide 2334 pg/ml (0-100) H 09/03/25 16:09 Total Protein 5.9 gm/dl (6.0-8.3) L 09/03/25 16:09 Albumin 4.0 gm/dl (3.4-5.0) 09/03/25 16:09 Globulin 1.9 gm/dl (2.5-4.0) L 09/03/25 16:09 Albumin/Globulin Ratio 2.1 (0.9-2) H 09/03/25 16:09 Impressions Chest X-Ray 09/03/25 14:48 EXAM: Portable AP chest radiograph TECHNIQUE: AP portable radiograph of the chest was obtained. INDICATION: Chest pain Comparison: Thoracic CT August 22, 2025 FINDINGS: LINES and TUBES: None CARDIOVASCULAR: Cardiac silhouette is stably enlarged in size. Atherosclerosis of the thoracic aorta. LUNGS/PLEURA: No focal consolidation identified. Mild interstitial pulmonary edema and small pleural fluids appear similar to the previous CT. No discernible pneumothorax. OSSEOUS/OTHER: No displaced acute osseous process identified. Chronic left-sided rib deformities. Thoracic lymphadenopathy was better delineated in the recent thoracic CT dated August 22, 2025 IMPRESSION: Similar congestive changes of the cardiovascular system compared to the CT examination dated August 22, 2025. Thoracic lymphadenopathy was better delineated in the recent thoracic CT dated August 22, 2025 Electronically signed by Adarsh Arnold 09-03-2025 5:53 PM Diagnostic Findings EKG as per my interpretation :Rate 85, NSR, LAD, LAFB, septal infarct, T wave inversions inferior and anterolateral leads
[2025-09-03] MEDS: ALBUT/IPRATROP 3MG/0.5MG NEB 3 ML VIAL NEB STA (19:53)
[2025-09-03 20:05] LABS: Magnesium 2.2 mg/dl (1.7-2.4)
[2025-09-03] MEDS ORDERED: NITROGLYCERIN SL 0.4 MG/TAB TAB SL PRN (21:05)
[2025-09-03] MEDS ORDERED: PROMETHAZINE 6.25 MG/50.25 ML BAG IV PRN (21:07)
[2025-09-03 22:08] LABS: Chlamydia pneumoniae PCR Not Detected (NotDetected); Coronavirus 229E PCR Not Detected (NotDetected); Coronavirus CoV-2 (COVID19)PCR Not Detected (NotDetected); Coronavirus HKU1 PCR Not Detected (NotDetected); Coronavirus NL63 PCR Not Detected (NotDetected); Coronavirus OC43PCR Not Detected (NotDetected); Human Metapneumovirus PCR Not Detected (NotDetected); Parainfluenza Virus 1 PCR Not Detected (NotDetected); Parainfluenza Virus 2 PCR Not Detected (NotDetected); Parainfluenza Virus 3 PCR Not Detected (NotDetected); Parainfluenza Virus 4 PCR Not Detected (NotDetected); Respiratory Syncytial VirusPCR Not Detected (NotDetected); Rhinovirus/Enterovirus PCR Not Detected (NotDetected)
[2025-09-03] MEDS: TICAGRELOR 90 MG TAB PO SCH (22:15)
[2025-09-03] MEDS: BENZONATATE 100 MG CAPSULE PO PRN (22:18)
--- NOTE | 2025-09-03 22:34 | Ultrasound Report ---
Exam(s): US VENOUS BILATERAL LOWER EXTREMITIES EXAM: US Duplex Bilateral Lower Extremities Veins CLINICAL HISTORY: Reason for exam: leg swelling. OTHER: Other Notes: Swelling. TECHNIQUE: Real-time duplex ultrasound scan of the bilateral lower extremity veins integrating B-mode two-dimensional vascular structure, Doppler spectral analysis, color flow Doppler imaging and compression. COMPARISON: No relevant prior studies available. FINDINGS: Right deep veins: Unremarkable. No DVT in the right common femoral, femoral, proximal deep femoral or popliteal veins. The veins demonstrate normal color flow, are normally compressible, with normal phasic flow and/or augmentation response. Right superficial veins: Unremarkable. No thrombus in the visualized right great saphenous vein. Left deep veins: Unremarkable. No DVT in the left common femoral, femoral, proximal deep femoral or popliteal veins. The veins demonstrate normal color flow, are normally compressible, with normal phasic flow and/or augmentation response. Left superficial veins: Unremarkable. No thrombus in the visualized left great saphenous vein. Soft tissues: No acute findings. No popliteal cyst. IMPRESSION: Negative bilateral lower extremity duplex venous ultrasound. No evidence of DVT. Electronically signed by: Donn Link MD 09/03/25 22:33 PM
[2025-09-03] MEDS ORDERED: GLUCOSE 10 TAB/TUBE PO PRN (22:35)
[2025-09-03] MEDS ORDERED: DEXTROSE 50% 50 ML SYRINGE IV PRN (22:35)
[2025-09-03] MEDS ORDERED: GLUCAGON FOR INJ 1 MG VIAL SQ PRN (22:35)
[2025-09-03] MEDS ORDERED: GLUCOSE 40% GEL 15 GM TUBE PO PRN (22:35)
[2025-09-03] MEDS ORDERED: CARBOHYDRATES FOR HYPOGLYCEMIA PO PRN (22:35)
[2025-09-03] MEDS: INSULIN ASPART PER UNIT CHARGE SC SCH (23:40)
[2025-09-03 23:51] LABS: Hematocrit (blood only) 24.4 % (37.0-47.0); Hemoglobin 7.5 g/dL (12.0-16.0)
[2025-09-04 00:07] LABS: Sodium 131.0 mmol/L (136-145)
[2025-09-04] MEDS: LEVALBUTEROL 1.25 MG/3 ML NEB NEB PRN (00:09)
[2025-09-04] MEDS: IPRATROPIUM BROMIDE NEB SOLN 0.02% 0.5MG/2.5ML VIAL INH PRN (00:09)
[2025-09-04] MEDS ORDERED: SODIUM CHLORIDE 0.9% 100 ML IV PRN (00:19)
[2025-09-04] MEDS: COUGH DROP (SUGAR FREE) LOZ 24 LOZ/1 BOX BUCCAL PRN (02:22)
[2025-09-04] MEDS: LATANOPROST 0.005% OP SOLN 2.5 ML BTL OP STA (02:22)
[2025-09-04] MEDS: FUROSEMIDE 40 MG/4 ML VIAL IV SCH (04:33)
--- NOTE | 2025-09-04 05:47 | Electrocardiogram Report ---
Test Reason : Blood Pressure : */* mmHG Vent. Rate : 84 BPM Atrial Rate : 84 BPM P-R Int : 198 ms QRS Dur : 84 ms QT Int : 446 ms P-R-T Axes : 69 -56 206 degrees QTcB Int : 527 ms Normal sinus rhythm Left axis deviation Prolonged QT Abnormal ECG When compared with ECG of 23-Aug-2025 11:40, T wave inversion now evident in Inferior leads T wave inversion now evident in Anterolateral leads QT has lengthened Confirmed by Jd Aponte ([id number]) on 09/04/2025 5:47:38 AM Referred By: Confirmed By: Jd Aponte
[2025-09-04 06:00] LABS: Hematocrit (blood only) 26.3 % (37.0-47.0); Hemoglobin 8.3 g/dL (12.0-16.0); Mean Corpuscular Hemoglobin 23.1 pg (25.0-34.0); Mean Corpuscular Volume 73.1 fL (80.0-100.0); Platelet Count 264 K/uL (130-400); RDW Standard Deviation 48.7 fL (36.4-46.3); Red Blood Count 3.60 M/uL (4.20-5.40); White Blood Count 12.91 K/ul (4.8-10.8)
[2025-09-04 06:17] LABS: Anion Gap 9.0 (3-11); Blood Urea Nitrogen 29.0 mg/dl (6-23); Calcium 8.7 mg/dl (8.6-10.3); Carbon Dioxide 24.0 mmol/L (21-32); Chloride 101.0 mmol/L (98-107); Creatinine Clr Calc Pharmacy 48.6 ml/min; Glucose 158.0 mg/dl (70-99(Fasting)); Potassium 3.7 mmol/L (3.5-5.1); Sodium 134.0 mmol/L (136-145)
[2025-09-04] MEDS: LEVOTHYROXINE SODIUM 88 MCG TABLET PO SCH (06:38)
[2025-09-04 07:15] LABS: Acanthocytes 2+; Basophilic Stippling 1+; Immature Granulocytes # (auto) 0.11 K/uL (0.01-0.20); Immature Granulocytes % (auto) 0.9 %; Polychromasia 2+; Schistocytes 1+; Tear Drop Cells 2+
--- NOTE | 2025-09-04 08:19 | Cardiology Consultation ---
Date of Consultation September 04, 2025 Assessment & Plan (1) Acute on chronic heart failure with reduced ejection fraction (HFrEF, <= 40%) and combined systolic and diastolic dysfunction: (2) Cardiomyopathy: (3) CAD (coronary artery disease): (4) History of coronary artery stent placement: Plan Assessment: 79 year old medically complex female admitted with significant weight gain and bilateral lower extremity edema in the setting of recent diagnosis of MV CAD and new HFrEF. Plan: 1. Acute on Chronic HFrEF 2. Cardiomyopathy 3. CAD 4. s/p PCI with YASMINE -patient admitted with volume overload. Recently hospitalized with newly diagnosed multi-vessel CAD and HFrEF -Reports medication compliance and efforts at dietary modification -Physical exam noted for volume overload - 1L -Strict I&O with daily weights. -Close monitoring of serum renal function and electrolytes. -Diuresing well. Continues to need IV diuresis with Furosemide 40mg IV BID -Reassess volume status in the AM -Review of telemetry shows SR/ST, no acute events overnight -Continue DAPT with ASA and Brilinta (recent complex PCI) -Continue Atorvastatin and Toprol xl. Not currently on JEFF-I/ARB or ARNI. Will discuss with Dr. Grey. Serum Cr. 1.01. Case has been discussed with Dr. Grey. Further recommendations regarding plan of care as per his assessment. I spent a total of 50 minutes on the date of service in preparation, delivery, documentation of the care provided to the patient excluding any time spent in the performance of separately billed services. FLACO [facility] Cardiology [facility] Supervising Physician Co-Signing Physician Notes Patient seen and examined. Past medical history, surgical history, social history and family history have been reviewed. The medical record and all the above studies have been reviewed. Case DW SUSANNE including management. 09/04/25 ECHO Interpretation Summary Moderate hypokinesis of the jadon-septal and apical-septal knott; akinesis of the apical wall; moderate to severe hypokinesis of the apical-anterior and apical-lateral knott. Left ventricular systolic function is moderate to severely reduced. Left Ventricular Ejection Fraction = 35-40%. Diastolic dysfunction, Grade II (pseudonormalization pattern). Mild pulmonic valvular regurgitation. There is mild to moderate mitral regurgitation. There is mild tricuspid regurgitation. Acute on chronic HFrEF CAD s/p PCI Ischemic CM Dietary noncompliance HTN HLD DM Beta thalassemia ERICA L SCA stenosis s/p R PATRICIA stent CLL recommendations: correct and f/u electrolytes f/u renal function IV to PO diuretics continue DAPT continue statin Start Entresto GDMT for HFrEF as tolerated keeping HR between 60 to 100 BPM and systolic BP between 100-140 mmHg avoid hypovolemia keep patient euvolemic DVT prophylaxis keep LE elevated when sitting 1.5 L / 24 hr fluid restriction strict I&Os daily wts salt restriction counseling History of Present Illness Reason for Consultation: CHF Requesting Physician: Mavis hospitalist Attending Physician: John Roberts DO History of Present Illness HPI: 79 year old medically complex female with PMHx as outlined below presents with acute complaints of bilateral leg swelling and increased shortness of breath. She reports a weight gain of approx 20lbs in 10 days. Patient was recen tly hospitalized at [facility] 08/22/2025 for shortness of breath, and nonproductive cough. Initially there was question of pneumonia process vs new CHF. Further testing showed an elevation of Troponin with the presence of a new Left BBB on EKG. Echocardiogram revealed severely reduced LVEF of 30-35% with apical cardiomyopathy vs ischemic cardiomyopathy. She underwent cardiac catheterization with Dr. Jose G Leigh on 08/23/25 demonstrating severe MVD and was recommended for transfer to [facility] for CT surgery evaluation. Ultimately, patient was deemed to high risk for CT surgery and underwent high risk PCI on 08/27/25. Patient was discharged in stable fashion to home on 08/28/2025. patient seen and examined at bedside, reports feeling improved since time of admission. Denies any new changes in breathing, endorses significant weight gain and ongoing BLE edema. Patient reports that she has not eaten excessive salt, but also states she doesn't watch it as closely as she had in the past. Iram ent's daughter is not present at this time, but is very watchful of mother's diets and medications. EKG NSR with T wave inversion noted in both inferior leads and Anterolateral leads. Rate 84bpm, QTC 527ms (present on EKG dated 08/23/25 [facility]) Chest xray: IMPRESSION: Similar congestive changes of the cardiovascular system compared to the CT examination dated August 22, 2025. Thoracic lymphadenopathy was better delineated in the recent thoracic CT dated August 22, 2025 High sensitive troponin 147.5/167.7/159.1 Cardiac Problem List: 1. Multi-vessel CAD deemed too high risk for CT surgery s/p high risk PCI on 08/27/25 (3 overlapping YASMINE to LMA-LAD and POBA to ostial Cx) [facility] 2. Ischemic cardiomyopathy LVEF 30-35% as demonstrated on echo 08/2025/HFrEF 3. HTN 4. HLD 5. DM Type II 6. Right PATRICIA s/p stent 7. Left subclavian artery high grade stenosis 8 Bilateral vertebral artery disease 9. ERICA--history of noncompliance with CPAP 10. Hypothyroidism 11. Beta thalassemia 12. CLL 13. PTSD/Anxiety/Depression Review of telemetry shows SR/ST rates 80-110bpm. No acute events overnight. Allergies Allergy/AdvReac Type Severity Reaction Status Date / Time dorzolamide Allergy Severe Blurry Unverified 09/03/25 19:39 Vision Home Medications Medication Instructions Recorded Confirmed Type Black Elderberry 575 mg PO QPM 01/21/22 09/03/25 History albuterol sulfate 90 mcg/actuation 2 puff inhalation QID PRN asthma 01/21/22 09/03/25 History aerosol inhaler alprazolam 0.25 mg tablet 0.25 mg PO DAILY PRN Anxiety 01/21/22 09/03/25 History ascorbic acid (vitamin C) 500 mg 500 mg PO QPM 01/21/22 09/03/25 History tablet (Vitamin C) cholecalciferol (vitamin D3) 25 25 mcg PO QPM 01/21/22 09/03/25 History mcg (1,000 unit) tablet (Vitamin D3) coQ10 (ubiquinol) 100 mg capsule 100 mg PO QPM 01/21/22 09/03/25 History cyanocobalamin (vitamin B-12) 250 250 mcg PO QAM 01/21/22 09/03/25 History mcg tablet (Vitamin B-12) dulaglutide 1.5 mg/0.5 mL 1.5 mg subcut WK 01/21/22 09/03/25 History subcutaneous pen injector (Trulicity) folic acid 1 mg tablet 1 mg PO DAILY 01/21/22 09/03/25 History levothyroxine 88 mcg tablet 88 mcg PO DAILYBB 01/21/22 09/03/25 History lutein 20 mg tablet 20 mg PO QAM 01/21/22 09/03/25 History magnesium 250 mg tablet 250 mg PO QAM 01/21/22 09/03/25 History meclizine 25 mg tablet 25 mg PO DAILY PRN Dizziness 01/21/22 09/03/25 History metformin 1,000 mg tablet 1,000 mg PO BID 01/21/22 09/03/25 History tafluprost (PF) 0.0015 % eye drops 1 drp ophthalmic (eye) HS 03/20/25 09/03/25 History in a dropperette ticagrelor 90 mg tablet (Brilinta) 90 mg PO BID 03/20/25 09/03/25 History aspirin 81 mg tablet,delayed 81 mg PO DAILY 09/03/25 09/03/25 History release atorvastatin 40 mg tablet 40 mg PO QAM 09/03/25 09/03/25 History citalopram 20 mg tablet 20 mg PO DAILY 09/03/25 09/03/25 History fluticasone propionate 50 2 spray intranasal HS 09/03/25 09/03/25 History mcg/actuation nasal spray,suspension metoprolol succinate 50 mg 50 mg PO DAILY 09/03/25 09/03/25 History tablet,extended release 24 hr nitroglycerin 0.4 mg sublingual 0.4 mg sublingual DIRECTED PRN 09/03/25 09/03/25 History tablet Chest Pain Patient History Medical History Vertigo Per vascular records x years PAD (peripheral artery disease) 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 per vascular records Hx of fall (12/13/24) went to [facility]- stitches in forehead- had blood transfusion fall vs syncope per records Glaucoma Carotid artery disease >70% stenosis to right ICA No significant stenosis noted to left ICD per 11/2024 carotid duplex Fibromyalgia Diabetic retinopathy PTSD (post-traumatic stress disorder) Beta thalassemia Stable- follows with heme/onc per PCP records (baseline Hgb 9-9.5; on no treatment per records) Hyperlipidemia Chronic lymphocytic leukemia Follows with [facility] heme/onc per PCP records Hypertension Anxiety Sleep apnea not using cpap- states she needs to be retested Surgical History Hx of colonoscopy with polypectomy History of esophagogastroduodenoscopy (EGD) History of eye surgery History of numerous eye injections, laser surgery, trabeculoplasty per records Family History Other Family history non-contributory Social History Smoking Status: Former smoker Tobacco Type: Cigarettes Second Hand Exposure: No; Do You Dip or Chew Tobacco: No; Hx Alcohol Use: No Hx Substance Use: No Preferred Language: Trinidadian Communication Ability: Effective Labor Contractor Required: No Beliefs That Will Affect Care: None Current Living Situation: Alone Feels Safe at Home: Yes Assistive Devices: Cane, Denture - Upper, Denture - Lower, Glasses and Hearing Aid - Bilateral Review of Systems Review of Systems: All systems reviewed & are unremarkable except as noted in HPI & below Physical Exam Constitutional: well developed and well nourished; no acute distress Neck: normal visual inspection and trachea midline Cardiovascular: Rate/Rhythm: regular rhythm and + tachycardic Heart Sounds: normal S1 and normal S2; no murmur Vessels: dorsalis pedis pulses present; no JVD Extremities: + edema (+2 BLE) Skin: no rashes, warm and dry Psychiatric: Orientation: alert and oriented x 3 Thought Process: + flight of ideas Results & Data Vital Signs (Past 12 Hours) Vital Signs Temp Pulse Pulse Resp BP BP Pulse Ox 09/04/25 07:17 36.8 C 88 18 110/68 99 09/04/25 07:00 104 H 09/04/25 04:04 149/75 H 09/04/25 03:04 136/80 09/04/25 02:04 122/58 L 09/04/25 01:34 76 18 111/69 09/04/25 01:19 36.6 C 100 H 18 112/69 96 09/04/25 01:01 36.8 C 99 H 18 110/53 L 96 09/04/25 00:09 93 H 16 95 09/04/25 00:00 09/03/25 23:44 09/03/25 23:39 36.8 C 55 L 16 100/68 93 09/03/25 23:30 102 H 09/03/25 22:45 09/03/25 22:45 97 H 18 108/50 L 98 09/03/25 22:20 97 H 18 99 09/03/25 22:20 97 H 18 121/49 L 97 09/03/25 21:00 97 H 20 122/59 L 97 Pulse Ox O2 Del Method O2 Del Method 09/04/25 07:17 Room Air 09/04/25 07:00 09/04/25 04:04 09/04/25 03:04 09/04/25 02:04 09/04/25 01:34 09/04/25 01:19 09/04/25 01:01 09/04/25 00:09 Room Air 09/04/25 00:00 Room Air 09/03/25 23:44 Room Air 09/03/25 23:39 Room Air 09/03/25 23:30 09/03/25 22:45 98 Room Air 09/03/25 22:45 Room Air 09/03/25 22:20 Room Air 09/03/25 22:20 Room Air 09/03/25 21:00 Room Air Laboratory Results Cardiac Enzymes 09/03/25 09/03/25 09/03/25 Range/Units 16:09 18:00 23:05 AST 13 (13-39) U/L Troponin I High Sens 147.5 H* 167.7 H* 159.1 H* (0-14) pg/ml B-Natriuretic Peptide 2334 H (0-100) pg/ml Coagulation 09/03/25 Range/Units 16:09 PT 10.8 (9.0-12.0) Seconds APTT 23 (21-31) Seconds B-Natriuretic Peptide 2334 H (0-100) pg/ml CBC 09/03/25 09/03/25 09/04/25 Range/Units 16:09 23:05 05:30 WBC 10.18 12.91 H (4.8-10.8) K/ul RBC 3.52 L 3.60 L (4.20-5.40) M/uL Hgb 7.5 L 7.5 L 8.3 L (12.0-16.0) g/dL Hct 25.0 L 24.4 L 26.3 L (37.0-47.0) % Plt Count 289 264 (130-400) K/uL Neut # (Auto) 3.87 4.71 (1.40-6.50) K/uL Lymph # (Auto) 5.25 H 6.73 H (1.20-3.40) K/uL [place] # (Auto) 0.83 H 1.23 H (0.11-0.59) K/uL Eos # (Auto) 0.13 0.10 (0.00-0.50) K/uL Baso # (Auto) 0.04 0.03 (0.00-0.20) K/uL Comprehensive Metabolic Panel 09/03/25 09/03/25 09/04/25 Range/Units 16:09 23:05 05:30 Sodium 131 L 131 L 134 L (136-145) mmol/L Potassium 4.3 3.7 (3.5-5.1) mmol/L Chloride 102 101 (98-107) mmol/L Carbon Dioxide 23 24 (21-32) mmol/L BUN 28 H 29 H (6-23) mg/dl Creatinine 0.99 1.01 (0.6-1.2) mg/dl Glucose 154 H 158 H (70-99(Fasting)) mg/dl Calcium 8.8 8.7 (8.6-10.3) mg/dl AST 13 (13-39) U/L ALT 9 (7-52) U/L Alkaline Phosphatase 62 (34-104) U/L Total Protein 5.9 L (6.0-8.3) gm/dl Albumin 4.0 (3.4-5.0) gm/dl Intake and Output 09/03/25 09/04/25 09/04/25 22:59 06:59 14:59 Intake Total 510 / 510 Output Total 600 / 1500 900 / 1500 500 / 500 Balance -600 / -990 -390 / -990 -500 / -500 Intake: Oral 200 / 200 Intake (Blood Product) Amt 310 / 310 Packed Cells, Leukoreduced 310 / 310 Unit [id number] Output: Urine 600 / 1500 900 / 1500 500 / 500 Other: Weight 88 kg 82.8 kg Weight Measurement Method Built in Bedscale Standing Scale Diagnostic Findings Cardiac Catheterization 08/27/2025 [facility]: - Severe left main, multivessel CAD - severely calcified and tortuous - Severe PAD precluded use of mechanical circulatory support - Distal LMCA 90%; prox LAD 90%; mid LAD 70% and distal LAD diffusely diseased; ostial Cx 80% stenosis - S/p PCI with intra-coronary lithotripsy prior to placement of 3 overlapping YASMINE from ostial LMCA to mid LAD (2.75x22, 2.75x8 and 2.5x30mm [place] YASMINE). LMCA portion of stent post-dilated with 4.0mm NC Balloon; prox LAD post- dilated with 3.5mm NC balloon and mid to distal LAD stents post-dilated with 3.0mm NC Balloon. Post-intervention there was 0% residual stenosis with KAMRAN 3 flow - S/P POBA to ostial Cx (unable to pass stent into ostial Cx) up to 2.5mm NC Balloon reducing stenosis to 20% with KAMRAN 3 flow Echocardiogram 08/24/2025 [facility]: Interpretation Summary The examination is adequate to evaluate the referral indication. The findings are consistent with ischemic cardiomyopathy. There is a large sized apical, anteroseptal, anterior, and lateral wall motion abnormality with hypokinesis to akinesis of the segments. The left ventricular systolic function is moderately reduced. The qualitative LV ejection fraction is 30-34% (moderately reduced). Calculated LV ejection Fraction = 34% (bi-plane method of discs). The right ventricular size is qualitatively normal. Image resolution does not allow for accurate measurement. The right ventricular systolic function is qualitatively normal. Mild mitral regurgitation is present. A small right lateral loculated pericardial effusion is present. Cardiac catheterization 08/23/2025 [facility] Dr. Leigh: Summary: 1. Severe multivessel coronary artery disease - 50-60% distal left main 80% proximal LAD. D1 80% mid stenosis 80-90% ostial circumflex. Small high OM1 with 90% ostial stenosis. 100% ostial RCA occlusion. Left to right and right to right collaterals. 2. Elevated intracardiac filling pressure Recommendations: Referral to tertiary center for consideration of CABG Continue diuresis and GDMT per Dr. Matson PG Care Time/CCT Total # of Minutes Spent Total Time Spent with Patient: Total time spent is greater than 50% in coordination of care (as documented) at patient's floor/unit and/or counseling patient: Coding Level of Care Code 99253 IN/OBS CONSULT LVL 5,80M Diagnoses Acute on chronic heart failure with reduced ejection fraction (HFrEF, <= 40%) and combined systolic and diastolic dysfunction I50.43 Cardiomyopathy I42.9 CAD (coronary artery disease) I25.10 History of coronary artery stent placement Z95.5 Time Spent (min) 50
[2025-09-04] MEDS: ASPIRIN 81 MG ECTAB PO SCH (08:45)
[2025-09-04] MEDS: CITALOPRAM 20 MG TAB PO SCH (08:45)
[2025-09-04] MEDS: METOPROLOL SUCC 50MG EXT REL TAB PO SCH (08:45)
[2025-09-04] MEDS: ATORVASTATIN 40 MG TAB PO SCH (08:45)
[2025-09-04] MEDS: FOLIC ACID 1 MG TAB PO SCH (08:45)
[2025-09-04] MEDS: MAGNESIUM OXIDE 400 MG TAB PO SCH (08:45)
[2025-09-04] MEDS: CYANOCOBALAMIN (B-12) 500 MCG TABLET PO SCH (08:45)
[2025-09-04] MEDS: ENOXAPARIN INJ 40 MG/0.4 ML SYR SQ SCH (08:45)
[2025-09-04] MEDS ORDERED: FUROSEMIDE 40 MG/4 ML VIAL IV SCH (09:00)
--- NOTE | 2025-09-04 10:34 | Hospitalist Progress Note ---
Date of Service September 04, 2025 Assessment & Plan (1) SOB (shortness of breath): Plan: 79F with PMH CAD with recent YASMINE x 3 at [facility] ICM EF 30% presents with CHF #Acute on chronic HFrEF -EF 30% -Secondary to ischemic cardiomyopathy -BNP elevated. Reviewed CXR images, pulm edema -At least 2+ B/L LE pitting edema -Not on diuretics at home -No O2 requirements Plan -Appreciate cardio inpput -Continue IV lasix -Monitor renal function, electrolytes, IOs, daily weight -GDMT as tolerated per cardio. Doubt she will tolerate entresto with her soft BP -EF is 30%, may need lifevest- defer to cardio #Elevated trop -Trop mildly elevated and downtrending -Low suspicion for ACS -Non specific trop elevation due to CHF #Recent CAD s/p YASMINE x 3 -Transferred to [facility] for triple vessel disease and CT surgery eval -Was deemed high surgical risk so had 3 stents placed -Was DC from [facility] last week Plan -Continue home DAPT -Continue high intensity statin, BB #Chronic anemia -Hgb 8.3 which is baseline -Microcytic -No s/s blood loss Plan -Send Fe panel given microcytosis -Hgb in AM -Transfuse < 8 given recent CAD with stents #Acute hyponatremia -Due to volume overload -Improving with diuresis -Recheck in AM #Hypothyroidism -Synthroid #NIDDM -SSI BGM ACHS -Hold home metformin in case contrast is needed this admission I spent a total of 53 minutes coordinating, documenting, and providing care for this patient excluding time spent in the performance of separately billed services. This included personally reviewing all current laboratories and imaging studies, medical reconciliation, outpatient chart review and discussion with specialists Admission and Anticipated Discharge Date Admission Date: September 03, 2025 Subjective Feeling well this AM. Patient denies F/C, CP, palpitations, SOB, dyspnea, abd pain, N/V/D. endorsing LE edema but improved from yesterday Physical Exam Physical Exam: Vitals and labs reviewed General: Well appearing, NAD HEENT: EOMI, PERRLA Neck: Supple Cardiac: RRR no rubs gallops or murmurs Lungs: CTA no rhonchi wheezing or rales Abd: S NT ND BS positive : Deffered MSK: Full ROM. No obvious deformities Ext: 2+ b/l LE pitting Edema up to knees Skin: Warm, Dry Neuro: AOx3 No focal deficits. Psych: Normal Mood Results & Data Results & Data Vital Signs (Past 12 Hours) Vital Signs Temp Pulse Pulse Resp BP BP Pulse Ox 09/04/25 07:17 36.8 C 88 18 110/68 99 09/04/25 07:00 104 H 09/04/25 04:04 149/75 H 09/04/25 03:04 136/80 09/04/25 02:04 122/58 L 09/04/25 01:34 76 18 111/69 09/04/25 01:19 36.6 C 100 H 18 112/69 96 09/04/25 01:01 36.8 C 99 H 18 110/53 L 96 09/04/25 00:09 93 H 16 95 09/04/25 00:00 09/03/25 23:44 09/03/25 23:39 36.8 C 55 L 16 100/68 93 09/03/25 23:30 102 H 09/03/25 22:45 09/03/25 22:45 97 H 18 108/50 L 98 Pulse Ox O2 Del Method O2 Del Method 09/04/25 07:17 Room Air 09/04/25 07:00 09/04/25 04:04 09/04/25 03:04 09/04/25 02:04 09/04/25 01:34 09/04/25 01:19 09/04/25 01:01 09/04/25 00:09 Room Air 09/04/25 00:00 Room Air 09/03/25 23:44 Room Air 09/03/25 23:39 Room Air 09/03/25 23:30 09/03/25 22:45 98 Room Air 09/03/25 22:45 Room Air Laboratory Results Abnormal lab results 09/03/25 09/03/25 09/03/25 Range/Units 16:09 18:00 22:42 WBC (4.8-10.8) K/ul RBC 3.52 L (4.20-5.40) M/uL Hgb 7.5 L (12.0-16.0) g/dL Hct 25.0 L (37.0-47.0) % MCV 71.0 L (80.0-100.0) fL MCH 21.3 L (25.0-34.0) pg MCHC 30.0 L (32.0-36.0) g/dL RDW Std Deviation (36.4-46.3) fL RDW Coeff of Tim 18.6 H (11.5-14.5) % Lymph # (Auto) 5.25 H (1.20-3.40) K/uL [place] # (Auto) 0.83 H (0.11-0.59) K/uL Sodium 131 L (136-145) mmol/L BUN 28 H (6-23) mg/dl BUN/Creatinine Ratio 28.3 H (10-20) Glucose 154 H (70-99(Fasting)) mg/dl POC Glucose 247 H (70-99) mg/dl Troponin I High Sens 147.5 H* 167.7 H* (0-14) pg/ml B-Natriuretic Peptide 2334 H (0-100) pg/ml Total Protein 5.9 L (6.0-8.3) gm/dl Globulin 1.9 L (2.5-4.0) gm/dl Albumin/Globulin Ratio 2.1 H (0.9-2) Crossmatch 09/03/25 09/04/25 09/04/25 Range/Units 23:05 05:30 07:58 WBC 12.91 H (4.8-10.8) K/ul RBC 3.60 L (4.20-5.40) M/uL Hgb 7.5 L 8.3 L (12.0-16.0) g/dL Hct 24.4 L 26.3 L (37.0-47.0) % MCV 73.1 L (80.0-100.0) fL MCH 23.1 L (25.0-34.0) pg MCHC 31.6 L (32.0-36.0) g/dL RDW Std Deviation 48.7 H (36.4-46.3) fL RDW Coeff of Tim 18.7 H (11.5-14.5) % Lymph # (Auto) 6.73 H (1.20-3.40) K/uL [place] # (Auto) 1.23 H (0.11-0.59) K/uL Sodium 131 L 134 L (136-145) mmol/L BUN 29 H (6-23) mg/dl BUN/Creatinine Ratio 28.7 H (10-20) Glucose 158 H (70-99(Fasting)) mg/dl POC Glucose 178 H (70-99) mg/dl Troponin I High Sens 159.1 H* (0-14) pg/ml B-Natriuretic Peptide (0-100) pg/ml Total Protein (6.0-8.3) gm/dl Globulin (2.5-4.0) gm/dl Albumin/Globulin Ratio (0.9-2) Crossmatch See Detail
--- NOTE | 2025-09-04 13:00 | XCELERA ---
[id number] \\[id number]
[2025-09-04] MEDS: ACETAMINOPHEN 325 MG TAB PO PRN (15:43)
[2025-09-04] MEDS: FLUTICASONE PROPIONATE NA SPR 16 GM BTL SCH (20:24)
[2025-09-04] MEDS: VALSARTAN/SACUBITRIL 26/24MG TAB PO SCH (20:25)
[2025-09-05 06:16] LABS: Hematocrit (blood only) 24.9 % (37.0-47.0); Hemoglobin 7.8 g/dL (12.0-16.0); Mean Corpuscular Hemoglobin 22.6 pg (25.0-34.0); Mean Corpuscular Volume 72.2 fL (80.0-100.0); Platelet Count 252 K/uL (130-400); RDW Standard Deviation 48.1 fL (36.4-46.3); Red Blood Count 3.45 M/uL (4.20-5.40); White Blood Count 12.24 K/ul (4.8-10.8)
[2025-09-05 06:35] LABS: Anion Gap 8.0 (3-11); Blood Urea Nitrogen 28.0 mg/dl (6-23); Calcium 8.5 mg/dl (8.6-10.3); Carbon Dioxide 26.0 mmol/L (21-32); Chloride 101.0 mmol/L (98-107); Creatinine Clr Calc Pharmacy 41.0 ml/min; Glucose 127.0 mg/dl (70-99(Fasting)); Iron 78.0 mcg/dl (35-150); Potassium 3.9 mmol/L (3.5-5.1); Sodium 135.0 mmol/L (136-145); Total Iron Binding Cap Calc 318.0 mcg/dl (250-450); Transferrin 227.0 mg/dl (200-360); Transferrin (FE) Percent Satur 25.0 % (15-50)
[2025-09-05 06:55] LABS: Ferritin 54.2 ng/ml (8-388)
[2025-09-05] MEDS: VALSARTAN/SACUBITRIL 26/24MG TAB PO SCH (08:45)
[2025-09-05 10:37] VITALS: BP 93/55; PULSE 69; RESP 18; TEMP 97.7; O2SAT 92
--- NOTE | 2025-09-05 11:04 | Cardiology Progress Note ---
Date of Service September 05, 2025 Assessment & Plan (1) Acute on chronic heart failure with reduced ejection fraction (HFrEF, <= 40%) and combined systolic and diastolic dysfunction: (2) Cardiomyopathy: (3) CAD (coronary artery disease): (4) History of coronary artery stent placement: Plan Assessment: 79 year old medically complex female admitted with significant weight gain and bilateral lower extremity edema in the setting of recent diagnosis of MV CAD and new HFrEF. Plan: 1. Acute on Chronic HFrEF 2. Cardiomyopathy 3. CAD 4. s/p PCI with YASMINE Admission and Anticipated Discharge Date Admission Date: September 03, 2025 Supervising Physician Co-Signing Physician Notes Acute on chronic HFrEF - improved CAD s/p PCI Ischemic CM Dietary noncompliance HTN HLD DM Beta thalassemia ERICA L SCA stenosis s/p R PATRICIA stent CLL recommendations: DC diuretics continue DAPT continue statin Started Entresto decrease Toprol xl to 25 mg po daily adjust anti-HTN meds keeping systolic BP between 100-140 mmHg GDMT for HFrEF as tolerated keeping HR between 60 to 100 BPM and systolic BP between 100-140 mmHg avoid hypovolemia keep patient euvolemic correct and f/u electrolytes f/u renal function DVT prophylaxis keep LE elevated when sitting salt restriction counseling f/u with cardiology post discharge Subjective Patient on exam is lying in bed in NAD; no c/o cp, sob, palpitations, dizziness, LOC, cough; leg swelling is better Review of Systems Review of Systems: as per hpi Physical Exam Constitutional: well developed and well nourished; no acute distress Neck: normal visual inspection and trachea midline Cardiovascular: Rate/Rhythm: regular rhythm Heart Sounds: normal S1 and normal S2 Vessels: dorsalis pedis pulses present; no JVD Skin: no rashes, warm and dry Psychiatric: Orientation: alert and oriented x 3 Results & Data Vital Signs (Past 12 Hours) Vital Signs Temp 36.5 C 09/05/25 10:36 Pulse 69 09/05/25 10:36 Resp 18 09/05/25 10:36 BP 93/55 L 09/05/25 10:36 Pulse Ox 92 09/05/25 10:36 O2 Del Method Room Air 09/05/25 10:36 O2 Flow Rate 10 09/03/25 19:55 Intake & Output 09/04/25 09/05/25 09/05/25 18:59 06:59 18:59 Intake Total 360 / 650 290 / 650 Output Total 1500 / 2400 900 / 2400 Balance -1140 / -1750 -610 / -1750 Weight 82.8 kg 82.1 kg Intake: Oral 360 / 650 290 / 650 Output: Urine 1500 / 2400 900 / 2400 Other: # Unmeasured Voids 1 Weight Measurement Method Standing Scale Vital Signs Temp Pulse Pulse Resp BP Pulse Ox O2 Del Method 09/05/25 09:00 Room Air 09/05/25 08:00 67 09/05/25 07:14 36.4 C L 68 19 97/60 L 96 Room Air 09/05/25 02:52 36.8 C 71 18 97/58 L 94 Room Air 09/04/25 23:16 36.4 C L 67 20 91/57 L 96 Room Air Laboratory Results Laboratory Results WBC 12.24 K/ul (4.8-10.8) H 09/05/25 05:20 RBC 3.45 M/uL (4.20-5.40) L 09/05/25 05:20 Hgb 7.8 g/dL (12.0-16.0) L 09/05/25 05:20 Hct 24.9 % (37.0-47.0) L 09/05/25 05:20 MCV 72.2 fL (80.0-100.0) L 09/05/25 05:20 MCH 22.6 pg (25.0-34.0) L 09/05/25 05:20 MCHC 31.3 g/dL (32.0-36.0) L 09/05/25 05:20 RDW Std Deviation 48.1 fL (36.4-46.3) H 09/05/25 05:20 RDW Coeff of Tim 18.8 % (11.5-14.5) H 09/05/25 05:20 Plt Count 252 K/uL (130-400) 09/05/25 05:20 MPV 9.9 fL (9.4-12.4) 09/05/25 05:20 Immature Gran % (Auto) 0.9 % 09/04/25 05:30 Neut % (Auto) 36.5 % 09/04/25 05:30 Lymph % (Auto) 52.1 % 09/04/25 05:30 [place] % (Auto) 9.5 % 09/04/25 05:30 Eos % (Auto) 0.8 % 09/04/25 05:30 Baso % (Auto) 0.2 % 09/04/25 05:30 Neut # (Auto) 4.71 K/uL (1.40-6.50) 09/04/25 05:30 Lymph # (Auto) 6.73 K/uL (1.20-3.40) H 09/04/25 05:30 [place] # (Auto) 1.23 K/uL (0.11-0.59) H 09/04/25 05:30 Eos # (Auto) 0.10 K/uL (0.00-0.50) 09/04/25 05:30 Baso # (Auto) 0.03 K/uL (0.00-0.20) 09/04/25 05:30 Immature Gran # (Auto) 0.11 K/uL (0.01-0.20) 09/04/25 05:30 Polychromasia 2+ 09/04/25 05:30 Basophilic Stippling 1+ 09/04/25 05:30 Tear Drop Cells 2+ 09/04/25 05:30 Acanthocytes (Spur) 2+ 09/04/25 05:30 Schistocytes 1+ 09/04/25 05:30 PT 10.8 Seconds (9.0-12.0) 09/03/25 16:09 INR 1.0 (0.9-1.1) 09/03/25 16:09 APTT 23 Seconds (21-31) 09/03/25 16:09 PTT Ratio 0.8 09/03/25 16:09 Sodium 135 mmol/L (136-145) L 09/05/25 05:20 Potassium 3.9 mmol/L (3.5-5.1) 09/05/25 05:20 Chloride 101 mmol/L (98-107) 09/05/25 05:20 Carbon Dioxide 26 mmol/L (21-32) 09/05/25 05:20 Anion Gap 8 (3-11) 09/05/25 05:20 BUN 28 mg/dl (6-23) H 09/05/25 05:20 Creatinine 1.19 mg/dl (0.6-1.2) 09/05/25 05:20 Est Cr Clr Drug Dosing 41.0 ml/min 09/05/25 05:20 eGFR 47.09 09/05/25 05:20 BUN/Creatinine Ratio 23.5 (10-20) H 09/05/25 05:20 Glucose 127 mg/dl (70-99(Fasting)) H 09/05/25 05:20 POC Glucose 136 mg/dl (70-99) H 09/05/25 07:54 Calcium 8.5 mg/dl (8.6-10.3) L 09/05/25 05:20 Magnesium 2.2 mg/dl (1.7-2.4) 09/03/25 18:00 Iron 78 mcg/dl (35-150) 09/05/25 05:20 TIBC 318 mcg/dl (250-450) 09/05/25 05:20 Transferrin 227 mg/dl (200-360) 09/05/25 05:20 Transferrin % Sat 25 % (15-50) 09/05/25 05:20 Ferritin 54.2 ng/ml (8-388) 09/05/25 05:20 Total Bilirubin 0.5 mg/dl (0.2-1.0) 09/03/25 16:09 AST 13 U/L (13-39) 09/03/25 16:09 ALT 9 U/L (7-52) 09/03/25 16:09 Alkaline Phosphatase 62 U/L (34-104) 09/03/25 16:09 Troponin I High Sens 159.1 pg/ml (0-14) H* 09/03/25 23:05 B-Natriuretic Peptide 2334 pg/ml (0-100) H 09/03/25 16:09 Total Protein 5.9 gm/dl (6.0-8.3) L 09/03/25 16:09 Albumin 4.0 gm/dl (3.4-5.0) 09/03/25 16:09 Globulin 1.9 gm/dl (2.5-4.0) L 09/03/25 16:09 Albumin/Globulin Ratio 2.1 (0.9-2) H 09/03/25 16:09 Adenovirus (PCR) Not Detected (NotDetected) 09/03/25 21:05 B. pertussis DNA (PCR) Not Detected (NotDetected) 09/03/25 21:05 B.parapertussis DNA PCR Not Detected (NotDetected) 09/03/25 21:05 C. pneumoniae DNA (PCR) Not Detected (NotDetected) 09/03/25 21:05 Coronavirus OC43 (PCR) Not Detected (NotDetected) 09/03/25 21:05 Coronavirus HKU1 (PCR) Not Detected (NotDetected) 09/03/25 21:05 Coronavirus 229E (PCR) Not Detected (NotDetected) 09/03/25 21:05 SARS-CoV-2 (PCR) Not Detected (NotDetected) 09/03/25 21:05 Coronavirus NL63 (PCR) Not Detected (NotDetected) 09/03/25 21:05 Human Metapneumovir PCR Not Detected (NotDetected) 09/03/25 21:05 Influenza Type A (PCR) Not Detected (NotDetected) 09/03/25 21:05 Influenza Type B (PCR) Not Detected (NotDetected) 09/03/25 21:05 M. pneumoniae (PCR) Not Detected (NotDetected) 09/03/25 21:05 Parainfluenza 1 (PCR) Not Detected (NotDetected) 09/03/25 21:05 Parainfluenza 2 (PCR) Not Detected (NotDetected) 09/03/25 21:05 Parainfluenza 3 (PCR) Not Detected (NotDetected) 09/03/25 21:05 Parainfluenza 4 (PCR) Not Detected (NotDetected) 09/03/25 21:05 RSV (PCR) Not Detected (NotDetected) 09/03/25 21:05 Entero/Rhino (PCR) Not Detected (NotDetected) 09/03/25 21:05 Blood Type A Positive 09/03/25 23:05 Antibody Screen NEGATIVE 09/03/25 23:05 Crossmatch See Detail 09/03/25 23:05 Impressions Chest X-Ray 09/03/25 14:48 EXAM: Portable AP chest radiograph TECHNIQUE: AP portable radiograph of the chest was obtained. INDICATION: Chest pain Comparison: Thoracic CT August 22, 2025 FINDINGS: LINES and TUBES: None CARDIOVASCULAR: Cardiac silhouette is stably enlarged in size. Atherosclerosis of the thoracic aorta. LUNGS/PLEURA: No focal consolidation identified. Mild interstitial pulmonary edema and small pleural fluids appear similar to the previous CT. No discernible pneumothorax. OSSEOUS/OTHER: No displaced acute osseous process identified. Chronic left-sided rib deformities. Thoracic lymphadenopathy was better delineated in the recent thoracic CT dated August 22, 2025 IMPRESSION: Similar congestive changes of the cardiovascular system compared to the CT examination dated August 22, 2025. Thoracic lymphadenopathy was better delineated in the recent thoracic CT dated August 22, 2025 Electronically signed by Adarsh Arnold 09-03-2025 5:53 PM Venous Doppler Study 09/03/25 21:03 Exam(s): US VENOUS BILATERAL LOWER EXTREMITIES EXAM: US Duplex Bilateral Lower Extremities Veins CLINICAL HISTORY: Reason for exam: leg swelling. OTHER: Other Notes: Swelling. TECHNIQUE: Real-time duplex ultrasound scan of the bilateral lower extremity veins integrating B-mode two-dimensional vascular structure, Doppler spectral analysis, color flow Doppler imaging and compression. COMPARISON: No relevant prior studies available. FINDINGS: Right deep veins: Unremarkable. No DVT in the right common femoral, femoral, proximal deep femoral or popliteal veins. The veins demonstrate normal color flow, are normally compressible, with normal phasic flow and/or augmentation response. Right superficial veins: Unremarkable. No thrombus in the visualized right great saphenous vein. Left deep veins: Unremarkable. No DVT in the left common femoral, femoral, proximal deep femoral or popliteal veins. The veins demonstrate normal color flow, are normally compressible, with normal phasic flow and/or augmentation response. Left superficial veins: Unremarkable. No thrombus in the visualized left great saphenous vein. Soft tissues: No acute findings. No popliteal cyst. IMPRESSION: Negative bilateral lower extremity duplex venous ultrasound. No evidence of DVT. Electronically signed by: Donn Link MD 09/03/25 22:33 PM 09/04/25 ECHO Interpretation Summary Moderate hypokinesis of the jadon-septal and apical-septal knott; akinesis of the apical wall; moderate to severe hypokinesis of the apical-anterior and apical-lateral knott. Left ventricular systolic function is moderate to severely reduced. Left Ventricular Ejection Fraction = 35-40%. Diastolic dysfunction, Grade II (pseudonormalization pattern). Mild pulmonic valvular regurgitation. There is mild to moderate mitral regurgitation. There is mild tricuspid regurgitation. Diagnostic Findings CBC 09/05/25 Range/Units 05:20 WBC 12.24 H (4.8-10.8) K/ul RBC 3.45 L (4.20-5.40) M/uL Hgb 7.8 L (12.0-16.0) g/dL Hct 24.9 L (37.0-47.0) % Plt Count 252 (130-400) K/uL Comprehensive Metabolic Panel 09/05/25 Range/Units 05:20 Sodium 135 L (136-145) mmol/L Potassium 3.9 (3.5-5.1) mmol/L Chloride 101 (98-107) mmol/L Carbon Dioxide 26 (21-32) mmol/L BUN 28 H (6-23) mg/dl Creatinine 1.19 (0.6-1.2) mg/dl Glucose 127 H (70-99(Fasting)) mg/dl Calcium 8.5 L (8.6-10.3) mg/dl Intake and Output 09/04/25 09/05/25 09/05/25 22:59 06:59 14:59 Intake Total 240 / 650 50 / 650 Output Total 900 / 2400 Balance 240 / -1750 -850 / -1750 Intake: Oral 240 / 650 50 / 650 Output: Urine 900 / 2400 Other: Weight 82.1 kg Weight Measurement Method Standing Scale Medications Administered Home Medications Medication Instructions Recorded Confirmed Last Taken Black Elderberry 575 mg PO QPM 01/21/22 09/03/25 09/02/25 albuterol sulfate 90 mcg/actuation 2 puff inhalation QID PRN asthma 01/21/22 09/03/25 09/03/25 aerosol inhaler alprazolam 0.25 mg tablet 0.25 mg PO DAILY PRN Anxiety 01/21/22 09/03/25 09/03/25 ascorbic acid (vitamin C) 500 mg 500 mg PO QPM 01/21/22 09/03/25 2 Days Ago tablet (Vitamin C) ~03/19/25 cholecalciferol (vitamin D3) 25 25 mcg PO QPM 01/21/22 09/03/25 09/02/25 mcg (1,000 unit) tablet (Vitamin D3) coQ10 (ubiquinol) 100 mg capsule 100 mg PO QPM 01/21/22 09/03/25 09/02/25 cyanocobalamin (vitamin B-12) 250 250 mcg PO QAM 01/21/22 09/03/25 3 Days Ago mcg tablet (Vitamin B-12) ~03/18/25 dulaglutide 1.5 mg/0.5 mL 1.5 mg subcut WK 01/21/22 09/03/25 08/26/25 subcutaneous pen injector (Trulicity) folic acid 1 mg tablet 1 mg PO DAILY 01/21/22 09/03/25 09/02/25 levothyroxine 88 mcg tablet 88 mcg PO DAILYBB 01/21/22 09/03/25 09/03/25 lutein 20 mg tablet 20 mg PO QAM 01/21/22 09/03/25 3 Days Ago ~03/18/25 magnesium 250 mg tablet 250 mg PO QAM 01/21/22 09/03/25 09/02/25 meclizine 25 mg tablet 25 mg PO DAILY PRN Dizziness 01/21/22 09/03/25 09/02/25 metformin 1,000 mg tablet 1,000 mg PO BID 01/21/22 09/03/25 09/03/25 08:00 tafluprost (PF) 0.0015 % eye drops 1 drp ophthalmic (eye) HS 03/20/25 09/03/25 09/02/25 in a dropperette ticagrelor 90 mg tablet (Brilinta) 90 mg PO BID 03/20/25 09/03/25 09/03/25 08:00 aspirin 81 mg tablet,delayed 81 mg PO DAILY 09/03/25 09/03/25 09/03/25 release atorvastatin 40 mg tablet 40 mg PO QAM 09/03/25 09/03/25 09/03/25 citalopram 20 mg tablet 20 mg PO DAILY 09/03/25 09/03/25 09/02/25 fluticasone propionate 50 2 spray intranasal HS 09/03/25 09/03/25 Unknown mcg/actuation nasal spray,suspension metoprolol succinate 50 mg 50 mg PO DAILY 09/03/25 09/03/25 Unknown tablet,extended release 24 hr nitroglycerin 0.4 mg sublingual 0.4 mg sublingual DIRECTED PRN 09/03/25 09/03/25 Unknown tablet Chest Pain Active Medications Generic Name Dose Route Start Last Admin Trade Name Freq PRN Reason Stop Dose Admin Acetaminophen 650 mg 09/03/25 21:07 09/05/25 02:56 Acetaminophen 325 Mg Tab PO 10/03/25 21:06 650 mg QID PRN Administration pain/fever Aspirin 81 mg 09/04/25 09:00 09/05/25 08:47 Aspirin 81 Mg Ectab PO 10/04/25 08:59 81 mg DAILY LITZY Administration Atorvastatin Calcium 40 mg 09/04/25 09:00 09/05/25 08:46 Atorvastatin 40 Mg Tab PO 10/04/25 08:59 40 mg QAM LITZY Administration Benzonatate 100 mg 09/03/25 21:09 09/03/25 22:18 Benzonatate 100 Mg Capsule PO 10/03/25 21:08 100 mg TID PRN Administration Cough Citalopram Hydrobromide 20 mg 09/04/25 09:00 09/05/25 08:46 Citalopram 20 Mg Tab PO 10/04/25 08:59 20 mg DAILY LITZY Administration Cyanocobalamin 250 mcg 09/04/25 09:00 09/05/25 08:46 Cyanocobalamin (B-12) 500 Mcg Tablet PO 10/04/25 08:59 250 mcg QAM LITZY Administration Enoxaparin Sodium 40 mg 09/04/25 09:00 09/05/25 08:54 Enoxaparin Inj 40 Mg/0.4 Ml Syr SQ 10/04/25 08:59 Not Given QAM [facility] Fluticasone Propionate 2 sprays 09/04/25 21:00 09/04/25 20:24 Fluticasone Propionate Na Spr 16 Gm Btl NA 10/04/25 20:59 2 sprays HS LITZY Administration Folic Acid 1 mg 09/04/25 09:00 09/05/25 08:47 Folic Acid 1 Mg Tab PO 10/04/25 08:59 1 mg DAILY LITZY Administration Insulin Aspart 0 units 09/03/25 22:35 09/05/25 08:50 Insulin Aspart Per Unit Charge SC 10/03/25 22:34 4 units ACHS LITZY Administration Ipratropium [place] 0.5 mg 09/03/25 22:19 09/04/25 00:09 Ipratropium [place] Neb Soln 0.02% 0.5mg/2.5ml Vial INH 10/03/25 22:18 0.5 mg Q4H PRN Administration sob wheeze Levalbuterol HCl 1.25 mg 09/03/25 22:19 09/04/25 00:09 Levalbuterol 1.25 Mg/3 Ml Neb NEB 10/03/25 22:18 1.25 mg Q4H PRN Administration sob wheeze Levothyroxine Sodium 88 mcg 09/04/25 06:30 09/05/25 06:25 Levothyroxine Sodium 88 Mcg Tablet PO 10/04/25 06:29 88 mcg DAILYBB LITZY Administration Magnesium Oxide 400 mg 09/04/25 09:00 09/05/25 08:46 Magnesium Oxide 400 Mg Tab PO 10/04/25 08:59 400 mg QAM LITZY Administration Menthol 1 otilio 09/04/25 02:11 09/04/25 02:22 Cough Drop (Sugar Free) Otilio 24 Otilio/1 Box BUCCAL 10/04/25 02:10 1 otilio Q2H PRN Administration Sore Throat Miscellaneous 1 each 09/04/25 08:00 09/05/25 07:08 Tafluprost (Pf) 0.0015%: Order Awaiting Action N/A 10/04/25 07:59 Not Given QS LITZY Oxycodone HCl 5 mg 09/03/25 21:07 09/03/25 23:43 Oxycodone Hcl Ir 5 Mg Tab (Immediate Release) PO 09/17/25 21:06 5 mg Q4H PRN Administration Pain Sacubitril/Valsartan 0.5 tab 09/05/25 09:00 09/05/25 08:45 Valsartan/Sacubitril 26/24mg Tab PO 10/05/25 08:59 0.5 tab BID LITZY Administration Ticagrelor 90 mg 09/03/25 21:15 09/05/25 08:45 Ticagrelor 90 Mg Tab PO 10/03/25 21:14 90 mg BID LITZY Administration PG Care Time/CCT Total # of Minutes Spent Total Time Spent with Patient: Total time spent is greater than 50% in coordination of care (as documented) at patient's floor/unit and/or counseling patient: Coding Level of Care Code 56920 SUB INP/OBS CARE 3/50MIN Diagnoses Acute on chronic heart failure with reduced ejection fraction (HFrEF, <= 40%) and combined systolic and diastolic dysfunction I50.43 Cardiomyopathy I42.9 CAD (coronary artery disease) I25.10 History of coronary artery stent placement Z95.5
--- NOTE | 2025-09-05 12:37 | Discharge Summary ---
Date of Service September 05, 2025 Admission HPI Per Admitting Provider History obtained from patient, family, and records. Medical history significant for chronic systolic heart failure (EF 30 to 35%, TTE 2024), CAD status post recent stent, PVD status post surgery, hypertension, hyperlipidemia, ERICA on CPAP, DM2 on oral medications, hypothyroidism, CLL, thalassemia, chronic anemia (baseline hemoglobin 7-8), PTSD/mood disorder, fibromyalgia, compression fractures. Past tobacco abuse. Recent [facility] confinement August [id number] for NSTEMI, CHF. Multivessel CAD on diagnostic cardiac catheterization. Cardiology [place] [facility] [place] [facility] [place]24. High risk PCI done due to high operative risk for coronary surgery. 3 overlapping YASMINE deployed to LM 8 to LAD and POBA to ostial circumflex. Patient woke up this morning with bilateral leg swelling. Patient more short of breath than usual. Denies chest pain. Chronic dry cough symptoms, denies aspiration. Weight gain of about 20 pounds in 10 days as per patient. Patient compliant with home medications and CPAP. Denies OTC NSAID intake. Patient directed to ER for evaluation. IV Lasix administered at the ER. Medical History as above Surgical History : Carotid artery stent, cataract surgery, laser trabeculoplasty, tonsillectomy Family History : Alcoholism, thalassemia, cervical cancer, brain aneurysm, dementia, stroke, heart disease, thyroid problem Personal/Social history : Past tobacco abuse, rare EtOH intake, retired [employer] employee Admission Exam Per Admitting Provider GENERAL: Comfortable, pleasant, obese, occasional coughing, no respiratory distress SKIN: Pallor,, warm HEENT: Wearing sunglasses, dry buccal mucosa NECK : Supple, no tenderness CHEST : Decreased breath sounds, no tenderness HEART : RRR, no obvious murmurs ABDOMEN: Some distention, nontender EXTREMITIES : Bilateral LE swelling without tenderness, palpable pulses, no other conspicuous deformities noted NEUROLOGIC : Coherent, no facial asymmetry, no other gross focality Principal Diagnosis 1. Acute on Chronic HFrEF 2. Cardiomyopathy 3. CAD 4. s/p PCI with YASMINE Discharge Exam Constitutional: WD/WN, vitals as above, NAD, sitting up in bed, pleasant, conversing easily Respiratory: normal respiratory effort, lungs clear to auscultation, no wheeze, rales, rhonchi. Normal insp/exp effort, no accessory muscle use Cardiovascular: RRR, no murmur, no edema Vessels: no JVD or carotid bruit Abdomen: normal bowel sounds, soft, nontender, no hepatosplenomegaly Musculoskeletal: no cyanosis or clubbing, extremities motor strength 5/5 Skin: no rashes, warm and dry normal turgor Neurologic: PERRL, EOMI, accommodation nl, no face palsy, no dysarthria CN's II- XI intact bilaterally and moves all extremities Psychiatric: A+Ox3, euthymic affect Discharge Data Allergies Allergy/AdvReac Type Severity Reaction Status Date / Time dorzolamide Allergy Severe Blurry Unverified 09/03/25 19:39 Vision Consultations 09/03/25 20:06 ED Decision to Admit Stat 09/03/25 21:07 Consult Cardiology Routine Ordered Studies 09/03/25 21:03 US venous doppler LE BI Stat Hospital Course (1) SOB (shortness of breath): 79F with PMH CAD with recent YASMINE x 3 [place] [facility] [place] EF 30% presents with CHF #Acute on chronic HFrEF -EF 30% -Secondary to ischemic cardiomyopathy -BNP elevated. Reviewed CXR images, pulm edema -At least 2+ B/L LE pitting edema -Not on diuretics at home -No O2 requirements Plan He was admitted to medical floor; was started on IV Lasix with improvement in lower extremity edema. Cardiology was consulted for comanagement. They recommended starting Entresto and decreasing metoprolol to 25 mg once a day. Patient to follow-up with PCP and obtain BMP to check on the electrolytes at discharge. Metformin dose was decreased to 500 mg twice daily from 1000 mg twice daily #Recent CAD s/p YASMINE x 3 -[place] [facility] [place] triple vessel disease and CT surgery eval -Was deemed high surgical risk so had 3 stents placed -Was DC [place] [facility] [place] Plan -Continue home DAPT -Continue high intensity statin, BB Please note the above document was generated using voice recognition software. It may contain grammatical, syntax or spelling errors. Any formal questions or concerns about the content, text or information contained within the body of this dictation should be directly addressed to the provider for clarification Total Time Total Time Spent Total Time Spent (In Minutes): 45 Total Time Includes: Examination of the Patient, Discharge Planning, Medication Reconciliation, Communication With Other Providers and Other Discharge Plan Discharge Items Patient Disposition: Home - Self-Care Reason For Visit: CHF Discharge Diagnosis: Acute on chronic HFrEF - improved CAD s/p PCI Ischemic CM Dietary noncompliance HTN HLD DM Beta thalassemia ERICA L SCA stenosis s/p R PATRICIA stent CLL Condition on Discharge: Fair Activity: Resume your previous activity Non-emergency contact: Primary Care Provider Call non-emergency contact if: you have any medication questions and your symptoms worsen Follow-up/Referrals: Yari Starr MD [Primary Care Provider] - Diet: Regular Addtl Attending Provider Instructions: You were admitted to the hospital due to CHF. You were evaluated by cardiology during the hospitalization. Following medication changes have been made; 1) Decrease metoprolol to 25 mg once a day. You are previously on 50 mg once a day. 2) You have been prescribed new medication called Entresto. Please take half a tablet twice a day. 3) The metformin has been decreased to 500 mg twice a day from 1000 mg twice a day. Your diabetes has been in good control. Keep your sodium intake to 2 g(2000 mg) in 24 hours. Minimize processed food. Please follow-up with your primary care doctor in 1 week. Obtain blood work to make sure your electrolytes are within range. If you notice that you are getting dizzy, having low blood pressure. Please hold the new medication called Entresto as it can cause low blood pressure in some individuals. Pending Studies at Discharge: No Stand-Alone Forms: My [facility], [employer], Smoking Cessation Medications and DC Order Prescriptions: New metoprolol succinate 25 mg Tablet Extended Release 24 Hr 25 mg PO DAILY Qty: 30 0RF sacubitril-valsartan [Entresto] 24-26 mg Tablet 0.5 tab PO BID Qty: 60 0RF Continued levothyroxine 88 mcg tablet 88 mcg PO DAILYBB alprazolam 0.25 mg tablet 0.25 mg PO DAILY PRN (Reason: Anxiety) albuterol sulfate 90 mcg/actuation HFA aerosol inhaler 2 puff INHALATION QID PRN (Reason: asthma) Rx Instructions: ordered qid but states she takes 2 times a night only Trulicity 1.5 mg/0.5 mL pen injector 1.5 mg SUBCUT WK Rx Instructions: sundays ascorbic acid (vitamin C) [Vitamin C] 500 mg Tablet 500 mg PO QPM folic acid 1 mg Tablet 1 mg PO DAILY magnesium 250 mg Tablet 250 mg PO QAM cholecalciferol (vitamin D3) [Vitamin D3] 25 mcg (1,000 unit) Tablet 25 mcg PO QPM coQ10 (ubiquinol) 100 mg Capsule 100 mg PO QPM cyanocobalamin (vitamin B-12) [Vitamin B-12] 250 mcg Tablet 250 mcg PO QAM meclizine 25 mg Tablet 25 mg PO DAILY PRN (Reason: Dizziness) lutein 20 mg Tablet 20 mg PO QAM Black Elderberry 575 mg PO QPM ticagrelor [Brilinta] 90 mg Tablet 90 mg PO BID tafluprost (PF) 0.0015 % Dropperette 1 drp OPHTHALMIC (EYE) HS Rx Instructions: administer at bedtime atorvastatin 40 mg tablet 40 mg PO QAM aspirin [Aspir-81] 81 mg Tablet,Delayed Release (Dr/Ec) 81 mg PO DAILY citalopram 20 mg tablet 20 mg PO DAILY Rx Instructions: recently decreased from 40 mg due to heart condition nitroglycerin 0.4 mg tablet, sublingual 0.4 mg sublingual DIRECTED PRN (Reason: Chest Pain) fluticasone propionate 50 mcg/actuation spray,suspension 2 spray INTRANASAL HS Changed metformin 1,000 mg tablet 500 mg PO BID Qty: 0 0RF Discontinued metoprolol succinate 50 mg tablet extended release 24 hr 50 mg PO DAILY Discharge Orders: Discharge Order (Routine); Ordered 09/05/25 Ordered By: Deonte Mei Admission Data Admit Date/Time: 09/03/25 19:33 Attending Provider: Deonte Mei Admit Provider: Jose Cruz Olivas Primary Care Provider: Yari Starr Other Providers: Jose Cruz Olivas; Doreen Cadet; Jason Lal; Rayshawn Matson; Zack Aldana; Daniele Yanez; Nathaniel Muñoz; Rosalinda Flanagan; Quita Maria; Cordelia Lobo; Sabrina Walsh Ashley M.; Manan Negron; Barry Ogden; Erika Garsia; Gale Cano; Adenike López; Barrie Prince; Jr Dickey; Lidia Matson; Lisandra Márquez; Ron Craven; Jimmy Grey; Cristina Peres; [place],[facility]
[2025-09-06] MEDS ORDERED: METOPROLOL SUCC 25MG EXT REL TAB PO SCH (09:00)
== END 2025-09-05 14:50 | disposition home or self-care (01) | DRG 291 ==
LOC: ED 14:12 → EDINP 19:33 → SUATTDRO 19:33 → 4W 22:35